=== PATIENT | female | born 1970 | race Caucasian/White ===

== ENCOUNTER 2017-04-29 18:02 | Emergency (ER) | payer OTHER ==
[2017-04-29 18:55] LABS: ADD MAN DIFF? NO
[2017-04-29 18:58] LABS: BASO # 0.1 x10^3/uL (0.0-0.2); BASO % 1 % (0-3); EOS # 0.1 x10^3/uL (0.0-0.7); EOS % 1 % (0-3); HEMATOCRIT 37.1 % (36.0-47.0); HEMOGLOBIN 12.2 g/dL (12.0-15.5); LYMPH # 2.5 x10^3/uL (1.0-4.8); LYMPH % 23 % (24-48); MEAN CORPUSCULAR HEMOGLOBIN 27 pg (25-35); MEAN CORPUSCULAR HGB CONC 33 g/dL (31-37); MEAN CORPUSCULAR VOLUME 82 fL (79-100); MONO # 0.9 x10^3/uL (0.0-1.1); MONO % 8 % (0-9); NEUT # 7.2 x10^3uL (1.8-7.7); NEUT % 67 % (31-73); PLATELET COUNT 334 x10^3/uL (140-400); RED BLOOD COUNT 4.51 x10^6/uL (3.50-5.40); RED CELL DISTRIBUTION WIDTH 14.9 % (11.5-14.5); WHITE BLOOD COUNT 10.8 x10^3/uL (4.0-11.0)
[2017-04-29] MEDS: methylPREDNISolone SOD SUCC PF 125 MG/2 ML VIAL. IV (19:02)
[2017-04-29 19:15] LABS: INFLUENZA A PATIENT NEGATIVE (NEGATIVE); INFLUENZA B PATIENT NEGATIVE (NEGATIVE); OBC FLU VALID
[2017-04-29 19:17] LABS: ANION GAP 9 (6-14); BLOOD UREA NITROGEN 11 mg/dL (7-20); BUN/CREATININE RATIO 16 (6-20); CALCIUM 9.5 mg/dL (8.5-10.1); CARBON DIOXIDE 30 mmol/L (21-32); CHLORIDE 100 mmol/L (98-107); CREATININE 0.7 mg/dL (0.6-1.0); GFR 89.3; GLUCOSE 93 mg/dL (70-99); SODIUM 139 mmol/L (136-145)
[2017-04-29 19:22] LABS: ALBUMIN 3.8 g/dL (3.4-5.0); ALBUMIN/GLOBULIN RATIO 0.9 (1.0-1.7); ALK PHOS 59 U/L (46-116); ALT (SGPT) 12 U/L (14-59); AST (SGOT) 23 U/L (15-37); TOTAL BILIRUBIN 0.2 mg/dL (0.2-1.0); TOTAL PROTEIN 7.9 g/dL (6.4-8.2)
[2017-04-29 19:28] LABS: NT-PRO BNP 149 pg/mL (0-124)
[2017-04-29 19:32] LABS: TROPONINI < 0.017 ng/mL (0.000-0.055)
[2017-04-29] MEDS: IPRATRPIUM/ALBUTEROL 0.5/2.5MG 3 ML NEBU. NEB (20:08)
[2017-04-29] MEDS: ALBUTEROL SULFATE 2.5 MG/3 ML NEBU. INH (20:08)
== END 2017-04-29 20:20 | disposition home or self-care (01) ==
LOC: ER 18:02
DX: J20.9 Acute bronchitis, unspecified (principal); J44.0 Chronic obstructive pulmonary disease with (acute) lower respiratory infection; J44.1 Chronic obstructive pulmonary disease with (acute) exacerbation; I10 Essential (primary) hypertension; E78.00 Pure hypercholesterolemia, unspecified; F12.10 Cannabis abuse, uncomplicated; F17.210 Nicotine dependence, cigarettes, uncomplicated; E66.9 Obesity, unspecified; Z68.34 Body mass index [BMI] 34.0-34.9, adult; Z79.899 Other long term (current) drug therapy
CPT/HCPCS: 36415; 71045; 80053; 83880; 84484; 85025; 87804; 87804-59; 93005; 94640; 96374; 99285-25; J2930; J7613; J7620

== ENCOUNTER 2017-06-03 13:52 | Emergency (ER) | payer OTHER ==
[2017-06-03 15:46] LABS: INFLUENZA A PATIENT NEGATIVE (NEGATIVE); INFLUENZA B PATIENT POSITIVE (NEGATIVE); OBC FLU VALID
== END 2017-06-03 16:06 | disposition home or self-care (01) ==
LOC: ER 16:06
DX: J10.1 Influenza due to other identified influenza virus with other respiratory manifestations (principal); J44.9 Chronic obstructive pulmonary disease, unspecified; M79.7 Fibromyalgia; E78.00 Pure hypercholesterolemia, unspecified; I10 Essential (primary) hypertension; F12.10 Cannabis abuse, uncomplicated; R19.7 Diarrhea, unspecified
CPT/HCPCS: 71046; 87804; 87804-59; 99285-25

== ENCOUNTER 2017-06-10 13:40 | Inpatient (IN) | payer OTHER ==
[2017-06-10] MEDS: 0.9 % SODIUM CHLORIDE 10 ML DISP.SYRIN. IV (14:45)
[2017-06-10 14:57] LABS: ADD MAN DIFF? NO
[2017-06-10] MEDS: ALBUTEROL SULFATE 2.5 MG/3 ML NEBU. CONT NEB (14:57)
[2017-06-10] MEDS: IPRATRPIUM/ALBUTEROL 0.5/2.5MG 3 ML NEBU. NEB ×2 (14:58→20:25)
[2017-06-10] MEDS: IV NORMAL SALINE 1000ML BAG 1,000 ML IV (15:00)
[2017-06-10 15:01] LABS: BASO # 0.1 x10^3/uL (0.0-0.2); BASO % 1 % (0-3); EOS % 0 % (0-3); HEMATOCRIT 37.1 % (36.0-47.0); HEMOGLOBIN 12.9 g/dL (12.0-15.5); LYMPH # 1.5 x10^3/uL (1.0-4.8); LYMPH % 15 % (24-48); MEAN CORPUSCULAR HEMOGLOBIN 28 pg (25-35); MEAN CORPUSCULAR HGB CONC 35 g/dL (31-37); MEAN CORPUSCULAR VOLUME 81 fL (79-100); MONO # 0.6 x10^3/uL (0.0-1.1); MONO % 6 % (0-9); NEUT # 7.9 x10^3uL (1.8-7.7); NEUT % 78 % (31-73); PLATELET COUNT 316 x10^3/uL (140-400); RED BLOOD COUNT 4.56 x10^6/uL (3.50-5.40); WHITE BLOOD COUNT 10.1 x10^3/uL (4.0-11.0)
[2017-06-10] MEDS: CIPROFLOXACIN 400MG PREMIX 200 ML IV (15:01)
[2017-06-10] MEDS: methylPREDNISolone SOD SUCC PF 125 MG/2 ML VIAL. IV (15:01)
[2017-06-10 15:03] LABS: BILIRUBIN,URINE NEGATIVE (NEG); CLARITY,URINE CLEAR; COLOR,URINE YELLOW; GLUCOSE,URINE NEGATIVE (NEG); NITRITE,URINE NEGATIVE (NEG); PROTEIN,URINE NEGATIVE (NEG-TRACE); UROBILINOGEN,URINE 0.2 mg/dL (0.2 mg/dL)
[2017-06-10 15:10] LABS: BACTERIA,URINE 0 /HPF (0-FEW); SQUAMOUS EPITHELIAL CELL,UR OCC /LPF; WBC,URINE OCC /HPF (0-4)
[2017-06-10 15:17] LABS: ANION GAP 12 (6-14); BLOOD UREA NITROGEN 11 mg/dL (7-20); CALCIUM 9.6 mg/dL (8.5-10.1); CARBON DIOXIDE 27 mmol/L (21-32); CHLORIDE 95 mmol/L (98-107); CREATININE 0.7 mg/dL (0.6-1.0); GFR 88.9; GLUCOSE 109 mg/dL (70-99); POTASSIUM 3.3 mmol/L (3.5-5.1); SODIUM 134 mmol/L (136-145)
[2017-06-10 15:22] LABS: ALBUMIN 3.5 g/dL (3.4-5.0); ALK PHOS 94 U/L (46-116); AST (SGOT) 21 U/L (15-37); DIRECT BILIRUBIN < 0.1 mg/dL (0.0-0.2); MAGNESIUM 1.7 mg/dL (1.8-2.4); TOTAL BILIRUBIN 0.4 mg/dL (0.2-1.0); TOTAL PROTEIN 8.7 g/dL (6.4-8.2)
[2017-06-10 15:29] LABS: THYROID STIM HORMONE (TSH) 0.409 uIU/mL (0.358-3.74); TROPONINI < 0.017 ng/mL (0.000-0.055)
[2017-06-10] MEDS ORDERED: FAMOTIDINE 20 MG/2 ML VIAL (15:29)
[2017-06-10 15:30] LABS: NT-PRO BNP 47 pg/mL (0-124)
[2017-06-10 15:30] LABS: CKMB INDEX 2.3 % (0-4); CKMB MASS 2.4 ng/mL (0.0-3.6); CREATINE KINASE 105 U/L (26-192)
[2017-06-10] MEDS: FAMOTIDINE 20 MG/2 ML VIAL IVP (15:31)
[2017-06-10] MEDS: EPINEPHrine 1 MG/ML VIAL IM (15:33)
[2017-06-10] MEDS: diphenhydrAMINE 50 MG/ML VIAL IVP (15:36)
[2017-06-10 15:40] LABS: ALT (SGPT) 14 U/L (14-59)
[2017-06-10 16:35] LABS: INFLUENZA A PATIENT NEGATIVE (NEGATIVE); INFLUENZA B PATIENT NEGATIVE (NEGATIVE); OBC FLU VALID
[2017-06-10] MEDS: POTASSIUM CHLORIDE 20 MEQ TABLET.ER. PO (17:12)
[2017-06-10] MEDS ORDERED: ACETAMINOPHEN 325 MG TABLET. PO (17:30)
[2017-06-10] MEDS ORDERED: ONDANSETRON PF 4 MG/2 ML VIAL. IV (17:30)
[2017-06-10] MEDS: OSELTAMIVIR 75 MG CAPSULE PO (20:23)
[2017-06-10] MEDS ORDERED: CIPROFLOXACIN 400MG PREMIX 200 ML IV (21:00)
[2017-06-11] MEDS: ALPRAZolam 1 MG TABLET PO (02:53)
[2017-06-11] MEDS: ALBUTEROL SULFATE 2.5 MG/3 ML NEBU. NEB ×2 (03:06→18:18)
[2017-06-11 06:36] LABS: BASO % 0 % (0-3); EOS % 0 % (0-3); HEMATOCRIT 36.9 % (36.0-47.0); HEMOGLOBIN 12.5 g/dL (12.0-15.5); LYMPH # 0.8 x10^3/uL (1.0-4.8); LYMPH % 11 % (24-48); MEAN CORPUSCULAR HEMOGLOBIN 28 pg (25-35); MEAN CORPUSCULAR HGB CONC 34 g/dL (31-37); MEAN CORPUSCULAR VOLUME 82 fL (79-100); MONO # 0.2 x10^3/uL (0.0-1.1); MONO % 3 % (0-9); NEUT # 6.9 x10^3uL (1.8-7.7); NEUT % 87 % (31-73); PLATELET COUNT 326 x10^3/uL (140-400); RED BLOOD COUNT 4.51 x10^6/uL (3.50-5.40); RED CELL DISTRIBUTION WIDTH 16.3 % (11.5-14.5)
[2017-06-11 06:38] LABS: ADD MAN DIFF? YES
[2017-06-11 06:48] LABS: ANION GAP 12 (6-14); BLOOD UREA NITROGEN 11 mg/dL (7-20); CALCIUM 9.1 mg/dL (8.5-10.1); CARBON DIOXIDE 27 mmol/L (21-32); CHLORIDE 99 mmol/L (98-107); CREATININE 0.8 mg/dL (0.6-1.0); GFR 76.2; GLUCOSE 163 mg/dL (70-99); POTASSIUM 3.2 mmol/L (3.5-5.1); SODIUM 138 mmol/L (136-145)
[2017-06-11 07:26] LABS: % BANDS 1 % (0-9); % LYMPHS 19 % (24-48); % MONOS 2 % (0-10); % SEGS 78 % (35-66); PLT ESTIMATE ADEQUATE (ADEQUATE)
[2017-06-11] MEDS: IPRATRPIUM/ALBUTEROL 0.5/2.5MG 3 ML NEBU. NEB ×3 (08:11→16:13)
[2017-06-11] MEDS ORDERED: ALPRAZolam 0.5 MG TABLET PO ×2 (08:30→08:45)
[2017-06-11] MEDS: GEMFIBROZIL 600 MG TABLET. PO ×2 (08:42→21:13)
[2017-06-11] MEDS: FLUoxetine HCL 20 MG CAPSULE PO (08:42)
[2017-06-11] MEDS: hydroCHLOROthiazide 25 MG TABLET PO (08:42)
[2017-06-11] MEDS: BENZONATATE 100 MG CAPSULE. PO ×2 (08:43→22:14)
[2017-06-11] MEDS: methylPREDNISolone SOD SUCC PF 125 MG/2 ML VIAL. IV ×3 (08:43→22:13)
[2017-06-11] MEDS: POTASSIUM CHLORIDE 20 MEQ TABLET.ER. PO ×2 (08:44→17:18)
[2017-06-11] MEDS: METOPROLOL TART IMMED RELEASE 25 MG TABLET. PO ×2 (08:44→21:14)
[2017-06-11] MEDS: VERAPAMIL 40 MG TABLET. PO ×2 (08:45→21:15)
[2017-06-11] MEDS: OSELTAMIVIR 75 MG CAPSULE PO ×2 (08:45→21:13)
[2017-06-11] MEDS: LISINOPRIL 20 MG TABLET PO (08:45)
[2017-06-11] MEDS ORDERED: BENZONATATE 100 MG CAPSULE. PO (09:00)
[2017-06-11] MEDS: VARENICLINE 0.5 MG TABLET. PO (10:58)
[2017-06-11] MEDS: HYDROcodone/APAP 7.5/325MG 1 TAB TABLET PO (12:14)
[2017-06-11] MEDS: FLU VACC QS2017-18 (36MOS+)/PF 0.5 ML SYRINGE. VAX IM (12:19)
[2017-06-11] MEDS: ALPRAZolam 0.5 MG TABLET PO ×2 (14:16→22:14)
[2017-06-11] MEDS: BUDESONIDE 0.5 MG/2 ML NEBU. NEB (18:18)
[2017-06-12] MEDS: methylPREDNISolone SOD SUCC PF 125 MG/2 ML VIAL. IV ×3 (06:06→22:18)
[2017-06-12] MEDS: BUDESONIDE 0.5 MG/2 ML NEBU. NEB ×2 (08:09→19:53)
[2017-06-12] MEDS: ALBUTEROL SULFATE 2.5 MG/3 ML NEBU. NEB ×4 (08:09→19:53)
[2017-06-12] MEDS: GEMFIBROZIL 600 MG TABLET. PO ×2 (08:26→20:15)
[2017-06-12] MEDS: OSELTAMIVIR 75 MG CAPSULE PO ×2 (08:26→20:15)
[2017-06-12] MEDS: VERAPAMIL 40 MG TABLET. PO ×2 (08:26→20:16)
[2017-06-12] MEDS: LISINOPRIL 20 MG TABLET PO (08:27)
[2017-06-12] MEDS: FLUoxetine HCL 20 MG CAPSULE PO (08:27)
[2017-06-12] MEDS: hydroCHLOROthiazide 25 MG TABLET PO (08:27)
[2017-06-12] MEDS: POTASSIUM CHLORIDE 20 MEQ TABLET.ER. PO ×2 (08:28→17:03)
[2017-06-12] MEDS: METOPROLOL TART IMMED RELEASE 25 MG TABLET. PO ×2 (08:28→20:16)
[2017-06-12] MEDS: VARENICLINE 0.5 MG TABLET. PO (08:29)
[2017-06-12] MEDS: HYDROcodone/APAP 7.5/325MG 1 TAB TABLET PO ×2 (08:33→15:02)
[2017-06-12 08:51] LABS: ANION GAP 10 (6-14); BLOOD UREA NITROGEN 19 mg/dL (7-20); CALCIUM 9.7 mg/dL (8.5-10.1); CARBON DIOXIDE 28 mmol/L (21-32); CHLORIDE 99 mmol/L (98-107); CREATININE 0.8 mg/dL (0.6-1.0); GFR 76.2; GLUCOSE 147 mg/dL (70-99); POTASSIUM 3.8 mmol/L (3.5-5.1); SODIUM 137 mmol/L (136-145)
[2017-06-12] MEDS: ALPRAZolam 0.5 MG TABLET PO (12:18)
[2017-06-12] MEDS: MONTELUKAST SODIUM 10 MG TABLET. PO (20:15)
[2017-06-13] MEDS: ALPRAZolam 0.5 MG TABLET PO ×2 (01:01→21:07)
[2017-06-13] MEDS: methylPREDNISolone SOD SUCC PF 125 MG/2 ML VIAL. IV (06:17)
[2017-06-13] MEDS: BUDESONIDE 0.5 MG/2 ML NEBU. NEB ×2 (08:02→20:15)
[2017-06-13] MEDS: ALBUTEROL SULFATE 2.5 MG/3 ML NEBU. NEB ×4 (08:02→20:16)
[2017-06-13] MEDS: VERAPAMIL 40 MG TABLET. PO ×2 (08:18→21:02)
[2017-06-13] MEDS: VARENICLINE 0.5 MG TABLET. PO (08:18)
[2017-06-13] MEDS: GEMFIBROZIL 600 MG TABLET. PO ×2 (08:18→21:02)
[2017-06-13] MEDS: OSELTAMIVIR 75 MG CAPSULE PO ×2 (08:18→21:02)
[2017-06-13] MEDS: HYDROcodone/APAP 7.5/325MG 1 TAB TABLET PO ×2 (08:19→21:01)
[2017-06-13] MEDS: FLUoxetine HCL 20 MG CAPSULE PO (08:19)
[2017-06-13] MEDS: POTASSIUM CHLORIDE 20 MEQ TABLET.ER. PO ×2 (08:19→16:37)
[2017-06-13] MEDS: hydroCHLOROthiazide 25 MG TABLET PO (08:19)
[2017-06-13] MEDS: LISINOPRIL 20 MG TABLET PO (08:19)
[2017-06-13] MEDS: METOPROLOL TART IMMED RELEASE 25 MG TABLET. PO ×2 (08:20→21:02)
[2017-06-13] MEDS: methylPREDNISolone SOD SUCC PF 40 MG/ML VIAL. IV ×2 (09:03→21:02)
[2017-06-13] MEDS: MONTELUKAST SODIUM 10 MG TABLET. PO (21:02)
[2017-06-14] MEDS: BUDESONIDE 0.5 MG/2 ML NEBU. NEB ×2 (07:39→20:54)
[2017-06-14] MEDS: ALBUTEROL SULFATE 2.5 MG/3 ML NEBU. NEB ×4 (07:41→20:54)
[2017-06-14] MEDS: GEMFIBROZIL 600 MG TABLET. PO ×2 (07:44→21:25)
[2017-06-14] MEDS: LISINOPRIL 20 MG TABLET PO (07:44)
[2017-06-14] MEDS: VARENICLINE 0.5 MG TABLET. PO (07:44)
[2017-06-14] MEDS: OSELTAMIVIR 75 MG CAPSULE PO ×2 (07:45→21:25)
[2017-06-14] MEDS: POTASSIUM CHLORIDE 20 MEQ TABLET.ER. PO ×2 (07:45→16:31)
[2017-06-14] MEDS: hydroCHLOROthiazide 25 MG TABLET PO (07:45)
[2017-06-14] MEDS: METOPROLOL TART IMMED RELEASE 25 MG TABLET. PO ×2 (07:45→21:25)
[2017-06-14] MEDS: VERAPAMIL 40 MG TABLET. PO ×2 (07:46→21:26)
[2017-06-14] MEDS: methylPREDNISolone SOD SUCC PF 40 MG/ML VIAL. IV ×2 (07:46→21:26)
[2017-06-14] MEDS: FLUoxetine HCL 20 MG CAPSULE PO (07:47)
[2017-06-14] MEDS ORDERED: PROMETH/CODEINE 6.25/10MG 5 ML SYRUP. PO (09:00)
[2017-06-14] MEDS: HYDROcodone/APAP 7.5/325MG 1 TAB TABLET PO (16:30)
[2017-06-14] MEDS ORDERED: BENZOCAINE 10% ORAL GEL 7GM TUBE. TP (16:45)
[2017-06-14] MEDS: MONTELUKAST SODIUM 10 MG TABLET. PO (21:25)
[2017-06-14] MEDS: ALPRAZolam 0.5 MG TABLET PO (21:25)
[2017-06-15] MEDS: HYDROcodone/APAP 7.5/325MG 1 TAB TABLET PO ×2 (02:24→08:40)
[2017-06-15] MEDS: ALBUTEROL SULFATE 2.5 MG/3 ML NEBU. NEB ×3 (06:05→15:01)
[2017-06-15] MEDS: BUDESONIDE 0.5 MG/2 ML NEBU. NEB (06:05)
[2017-06-15] MEDS: POTASSIUM CHLORIDE 20 MEQ TABLET.ER. PO ×2 (08:00→16:58)
[2017-06-15] MEDS: LISINOPRIL 20 MG TABLET PO (08:29)
[2017-06-15] MEDS: FLUoxetine HCL 20 MG CAPSULE PO (08:29)
[2017-06-15] MEDS: VERAPAMIL 40 MG TABLET. PO (08:30)
[2017-06-15] MEDS: methylPREDNISolone SOD SUCC PF 40 MG/ML VIAL. IV (08:30)
[2017-06-15] MEDS: METOPROLOL TART IMMED RELEASE 25 MG TABLET. PO (08:30)
[2017-06-15] MEDS: OSELTAMIVIR 75 MG CAPSULE PO (08:30)
[2017-06-15] MEDS: VARENICLINE 0.5 MG TABLET. PO (08:30)
[2017-06-15] MEDS: GEMFIBROZIL 600 MG TABLET. PO (08:30)
[2017-06-15] MEDS: hydroCHLOROthiazide 25 MG TABLET PO (08:30)
== END 2017-06-15 18:05 | disposition home or self-care (01) | DRG 193 ==
LOC: ER 13:40 → ED HOLD 17:15 → 5 NORTH 20:58
DX: J10.1 Influenza due to other identified influenza virus with other respiratory manifestations (principal); J96.20 Acute and chronic respiratory failure, unspecified whether with hypoxia or hypercapnia; J44.1 Chronic obstructive pulmonary disease with (acute) exacerbation; E78.00 Pure hypercholesterolemia, unspecified; E87.6 Hypokalemia; F17.200 Nicotine dependence, unspecified, uncomplicated; F32.9 Major depressive disorder, single episode, unspecified; F41.9 Anxiety disorder, unspecified; G89.4 Chronic pain syndrome; I10 Essential (primary) hypertension; J30.9 Allergic rhinitis, unspecified; M79.7 Fibromyalgia; F12.90 Cannabis use, unspecified, uncomplicated
CPT/HCPCS: 36415; 71045; 80048; 80076; 81001; 82553; 83735; 83880; 84443; 84484; 85007; 85025; 87804; 87804-59; 90686; 93005; 94618; 94640; 94644; 94760; 96365; 96372; 96375; 99291; 99291-25; J0171; J0744; J1200; J2060; J2920; J2930; J7030; J7613; J7620; J7626; S0028

== ENCOUNTER 2017-12-14 14:12 | Emergency (ER) | payer OTHER ==
[~2017-12-14] VITALS: Ht 172.7 cm; Wt 99.8 kg
[~2017-12-14 14:12] MED LIST: ALBU2.5V5 NEB; ALPR0.5T6 PO; AZIT250T6 PO; BENZ100C PO; FLUO10CA13 PO; FLUO40CA2 PO; FLUT1DIS5 IH; GEMF600T3 PO; HYDR-2679 PO; LISI1TAB7 PO; METO-239 PO; METO25TA4 PO; MONT10TA9 PO; ONDA4TAB10 SL; PRED-220 PO; PRED50TA PO; VARE0.5T PO; VERA240C2 PO
[2017-12-14] MEDS: methylPREDNISolone SOD SUCC PF 125 MG/2 ML VIAL. IV ONE (15:01)
[2017-12-14] MEDS: FAMOTIDINE 20 MG/2 ML VIAL IVP ONE (15:01)
--- NOTE | 2017-12-14 15:03 | RAD ---
EXAM: Chest, single view. HISTORY: Shortness of breath. COMPARISON: 06/10/2017 FINDINGS: A frontal view of the chest is obtained. There is no infiltrate, pleural effusion or pneumothorax. There is mild enlargement of the cardiac silhouette, a component of which is due to portable technique. IMPRESSION: No acute pulmonary finding. Electronically signed by: Carlee White MD (12/14/2017 3:00 PM) [facility]
[2017-12-14 15:04] LABS: BASO # 0.1 x10^3/uL (0.0-0.2); BASO % 1 % (0-3); EOS # 0.2 x10^3/uL (0.0-0.7); EOS % 1 % (0-3); HEMATOCRIT 39.4 % (36.0-47.0); HEMOGLOBIN 13.4 g/dL (12.0-15.5); LYMPH # 2.9 x10^3/uL (1.0-4.8); LYMPH % 23 % (24-48); MEAN CORPUSCULAR HEMOGLOBIN 29 pg (25-35); MEAN CORPUSCULAR HGB CONC 34 g/dL (31-37); MEAN CORPUSCULAR VOLUME 84 fL (79-100); MONO # 0.8 x10^3/uL (0.0-1.1); MONO % 6 % (0-9); NEUT # 8.7 x10^3uL (1.8-7.7); NEUT % 69 % (31-73); PLATELET COUNT 365 x10^3/uL (140-400); RED BLOOD COUNT 4.69 x10^6/uL (3.50-5.40); RED CELL DISTRIBUTION WIDTH 15.1 % (11.5-14.5); WHITE BLOOD COUNT 12.6 x10^3/uL (4.0-11.0)
[2017-12-14] MEDS ORDERED: IPRATRPIUM/ALBUTEROL 0.5/2.5MG 3 ML NEBU. NEB ONE (15:15)
[2017-12-14 15:16] LABS: CREATININE 0.8 mg/dL (0.6-1.0); GFR 76.2; POTASSIUM 3.9 mmol/L (3.5-5.1)
[2017-12-14 15:22] LABS: ALBUMIN 3.7 g/dL (3.4-5.0); ALBUMIN/GLOBULIN RATIO 1.3 (1.0-1.7); TOTAL BILIRUBIN 0.3 mg/dL (0.2-1.0); TOTAL PROTEIN 6.6 g/dL (6.4-8.2)
[2017-12-14 15:40] VITALS: BP 108/71
[2017-12-14] MEDS ORDERED: AMOX1TAB61 PO (15:43)
--- NOTE | 2017-12-14 15:43 | PHYS DOC ---
Past Medical History Past Medical History: COPD, Fibromyalgia, High Cholesterol, Hypertension Past Surgical History: Additional Past Surgical Histo: throat surgery Alcohol Use: None Drug Use: Marijuana Adult General Chief Complaint Chief Complaint: ALLERGIC REACTION HPI HPI Patient is a 47-year-old female who presents with complaint of itching and rash to her hands and feet as well as hoarseness and tightness in her throat that started approximately 15-20 minutes after taking a dose of Levaquin. Patient states that this was her first dose of Levaquin in this prescription. She is not sure whether or not she has taken Levaquin in the past. Patient denies any chest pain or shortness of breath. She does admit to a cough but states that that is been present for quite some time and is why she is taking antibiotics. She denies any fever. Review of Systems Review of Systems Constitutional: Denies fever or chills [] HENT: Complains of sore throat with throat tightness[] Respiratory: Complains of cough[] Cardiovascular: Denies chest pain[] Integument: Complains of rash and itching to bilateral hands and feet, primarily palmar and plantar aspects[] All other systems were reviewed and found to be within normal limits, except as documented in this note. Current Medications Current Medications Current Medications Medications (Trade) Dose Ordered Sig/Roberto Start Time Stop Time Status Last Admin Dose Admin Albuterol/ Ipratropium (Duoneb) 3 ml 1X ONCE 12/14/17 15:15 12/14/17 15:16 DC Famotidine (Pepcid Vial) 20 mg 1X ONCE 12/14/17 15:15 12/14/17 15:16 DC 12/14/17 15:01 20 MG Methylprednisolone Sodium Succinate (SOLU-Medrol 125MG VIAL) 125 mg 1X ONCE 12/14/17 15:15 12/14/17 15:16 DC 12/14/17 15:01 125 MG Allergies Allergies Allergies Coded Allergies Type Severity Reaction Last Updated Verified ciprofloxacin Allergy Severe Shortness of Air 06/10/17 Yes Physical Exam Physical Exam Constitutional: Well developed, well nourished, no acute distress, non-toxic appearance. [] HENT: Normocephalic, atraumatic, bilateral external ears normal, there is pharyngeal erythema without exudates, nose normal. [] Eyes: PERRLA, EOMI, conjunctiva normal, no discharge. [] Neck: Normal range of motion, no tenderness, supple, no stridor. [] Cardiovascular:Heart rate regular rhythm [] Lungs & Thorax: There are inspiratory and expiratory wheezes noted bilaterally[] Abdomen: Bowel sounds normal, soft. [] Skin: Warm, dry, with erythema noted to bilateral hands. [] Extremities: No tenderness, no cyanosis, no clubbing, ROM intact, no edema. [] Neurologic: Alert and oriented X 3, normal motor function, normal sensory function, no focal deficits noted. [] Current Patient Data Vital Signs Vital Signs Date Time Temp Pulse Resp B/P (MAP) Pulse Ox O2 Delivery O2 Flow Rate FiO2 12/14/17 14:53 97 Room Air 12/14/17 14:22 97.7 105 18 127/61 (83) 97.7 Lab Values Laboratory Tests Test 12/14/17 14:57 White Blood Count 12.6 x10^3/uL (4.0-11.0) H Red Blood Count 4.69 x10^6/uL (3.50-5.40) Hemoglobin 13.4 g/dL (12.0-15.5) Hematocrit 39.4 % (36.0-47.0) Mean Corpuscular Volume 84 fL (79-100) Mean Corpuscular Hemoglobin 29 pg (25-35) Mean Corpuscular Hemoglobin Concent 34 g/dL (31-37) Red Cell Distribution Width 15.1 % (11.5-14.5) H Platelet Count 365 x10^3/uL (140-400) Neutrophils (%) (Auto) 69 % (31-73) Lymphocytes (%) (Auto) 23 % (24-48) L Monocytes (%) (Auto) 6 % (0-9) Eosinophils (%) (Auto) 1 % (0-3) Basophils (%) (Auto) 1 % (0-3) Neutrophils # (Auto) 8.7 x10^3uL (1.8-7.7) H Lymphocytes # (Auto) 2.9 x10^3/uL (1.0-4.8) Monocytes # (Auto) 0.8 x10^3/uL (0.0-1.1) Eosinophils # (Auto) 0.2 x10^3/uL (0.0-0.7) Basophils # (Auto) 0.1 x10^3/uL (0.0-0.2) Sodium Level 138 mmol/L (136-145) Potassium Level 3.9 mmol/L (3.5-5.1) Chloride Level 103 mmol/L (98-107) Carbon Dioxide Level 27 mmol/L (21-32) Anion Gap 8 (6-14) Blood Urea Nitrogen 12 mg/dL (7-20) Creatinine 0.8 mg/dL (0.6-1.0) Estimated GFR (Cockcroft-Gault) 76.2 BUN/Creatinine Ratio 15 (6-20) Glucose Level 110 mg/dL (70-99) H Calcium Level 9.0 mg/dL (8.5-10.1) Total Bilirubin 0.3 mg/dL (0.2-1.0) Aspartate Amino Transferase (AST) 11 U/L (15-37) L Alanine Aminotransferase (ALT) 19 U/L (14-59) Alkaline Phosphatase 58 U/L (46-116) Total Protein 6.6 g/dL (6.4-8.2) Albumin 3.7 g/dL (3.4-5.0) Albumin/Globulin Ratio 1.3 (1.0-1.7) Laboratory Tests 12/14/17 14:57 Laboratory Tests 12/14/17 14:57 EKG EKG [] Radiology/Procedures Radiology/Procedures [] Course & Med Decision Making Course & Med Decision Making Pertinent Labs and Imaging studies reviewed. (See chart for details) [] Dragon Disclaimer Dragon Disclaimer This electronic medical record was generated, in whole or in part, using a voice recognition dictation system. Departure Departure Impression: Primary Impression: Allergic reaction caused by a drug Disposition: 01 HOME, SELF-CARE Condition: STABLE Referrals: Jasmin PATTERSON MD (PCP) Patient Instructions: Drug Allergy Scripts Amoxicillin/Potassium Clav (AUGMENTIN 875-125 TABLET) 1 Each Tablet 1 TAB PO BID, #20 TAB Prov: GEOVANI CHRISTIANSON Jr. DO 12/14/17 Problem Qualifiers Primary Impression: Allergic reaction caused by a drug Encounter type: initial encounter Qualified Codes: T78.40XA - Allergy, unspecified, initial encounter GEOVANI CHRISTIANSON Jr. DO Dec 14, 2017 15:43
== END 2017-12-14 16:10 | disposition home or self-care (01) ==
LOC: ER 14:12
DX: L27.0 Generalized skin eruption due to drugs and medicaments taken internally (principal); L29.9 Pruritus, unspecified; T50.905A Adverse effect of unspecified drugs, medicaments and biological substances, initial encounter; J44.9 Chronic obstructive pulmonary disease, unspecified; E78.00 Pure hypercholesterolemia, unspecified; I10 Essential (primary) hypertension; Z88.1 Allergy status to other antibiotic agents; Z98.890 Other specified postprocedural states; Y92.89 Other specified places as the place of occurrence of the external cause
CPT/HCPCS: 36415; 71045; 80053; 85025; 94640; 96374; 96375; 99285; J2930; S0028

== ENCOUNTER 2018-09-19 17:27 | Inpatient (IN) | payer OTHER ==
[~2018-09-19] VITALS: Ht 157.5 cm; Wt 101.2 kg
[~2018-09-19 17:27] MED LIST changes: +AMOX1TAB61 PO; -GEMF600T3 PO; +GEMF600T8 PO
[2018-09-19 17:41] LABS: BASO # 0.1 x10^3/uL (0.0-0.2); BASO % 1 % (0-3); EOS # 0.1 x10^3/uL (0.0-0.7); EOS % 1 % (0-3); HEMATOCRIT 43.4 % (36.0-47.0); HEMOGLOBIN 14.8 g/dL (12.0-15.5); LYMPH # 2.7 x10^3/uL (1.0-4.8); LYMPH % 26 % (24-48); MEAN CORPUSCULAR HEMOGLOBIN 29 pg (25-35); MEAN CORPUSCULAR HGB CONC 34 g/dL (31-37); MEAN CORPUSCULAR VOLUME 84 fL (79-100); MONO # 0.7 x10^3/uL (0.0-1.1); MONO % 7 % (0-9); NEUT # 6.7 x10^3uL (1.8-7.7); NEUT % 65 % (31-73); PLATELET COUNT 482 x10^3/uL (140-400); RED BLOOD COUNT 5.14 x10^6/uL (3.50-5.40); RED CELL DISTRIBUTION WIDTH 14.3 % (11.5-14.5); WHITE BLOOD COUNT 10.2 x10^3/uL (4.0-11.0)
[2018-09-19 17:54] LABS: CALCIUM 9.1 mg/dL (8.5-10.1); CREATININE 0.7 mg/dL (0.6-1.0); GFR 88.6; POTASSIUM 3.6 mmol/L (3.5-5.1)
[2018-09-19 17:56] LABS: ALBUMIN 3.5 g/dL (3.4-5.0); TOTAL BILIRUBIN 0.3 mg/dL (0.2-1.0); TOTAL PROTEIN 7.1 g/dL (6.4-8.2)
--- NOTE | 2018-09-19 17:56 | RAD ---
PORTABLE CHEST 1V Clinical indications: Allergic reaction. COMPARISON: December 14, 2017. Findings: No acute lung infiltrate or pleural effusion or pulmonary edema or lung mass or pneumothorax is seen. The heart size, pulmonary vasculature, mediastinum and both mahesh are unremarkable. Impression: No acute radiographic abnormality is seen. Electronically signed by: Hans Orona MD (09/19/2018 5:53 PM) [facility]
[2018-09-19] MEDS ORDERED: IV NORMAL SALINE 1000ML BAG 1,000 ML IV SCH (18:00)
[2018-09-19] MEDS ORDERED: ONDANSETRON PF 4 MG/2 ML VIAL. IV ONE (18:00)
[2018-09-19] MEDS ORDERED: FAMOTIDINE 20 MG/2 ML VIAL IVP ONE (18:00)
--- NOTE | 2018-09-19 18:04 | PHYS DOC ---
Past Medical History Past Medical History: COPD, Fibromyalgia, High Cholesterol, Hypertension (PIPO HAYES MD) Past Surgical History: Additional Past Surgical Histo: throat surgery (PIPO HAYES MD) Alcohol Use: None Drug Use: Marijuana (PIPO HAYES MD) Smoking: Cigarettes Drug Use: Methamphetamine (JOSH MCCARTHY DO) Adult General Chief Complaint Chief Complaint: allergic reaction HPI HPI Patient is a 48 year old female who came by EMS because of allergic reaction. Patient has history of COPD and currently smoking without home oxygen and started the first dose of prednisone that was prescribed to her recently. Patient complaining of sudden onset of shortness of breath and throat edema with generalized rash and itching. EMS gave her 50 mg of IV Benadryl and 0.3 mg of epinephrine IM with improvement of her condition. IM. (PIPO HAYES MD) Review of Systems Review of Systems Constitutional: Denies fever or chills [] Eyes: Denies change in visual acuity, redness, or eye pain [] HENT: Denies nasal congestion or sore throat [] Respiratory: Reports cough and shortness of breath Cardiovascular: No additional information not addressed in HPI [] GI: Denies abdominal pain, nausea, vomiting, bloody stools or diarrhea [] : Denies dysuria or hematuria [] Musculoskeletal: Denies back pain or joint pain [] Integument: Reports rash and itching Neurologic: Denies headache, focal weakness or sensory changes [] Endocrine: Denies polyuria or polydipsia [] All other systems were reviewed and found to be within normal limits, except as documented in this note. (PIPO HAYES MD) Current Medications Current Medications Current Medications Medications (Trade) Dose Ordered Sig/Roberto Start Time Stop Time Status Last Admin Dose Admin Famotidine (Pepcid Vial) 20 mg 1X ONCE 09/19/18 18:00 09/19/18 18:01 DC 09/19/18 17:55 20 MG Ondansetron HCl (Zofran) 4 mg 1X ONCE 09/19/18 18:00 09/19/18 18:01 DC 09/19/18 17:55 4 MG Sodium Chloride 1,000 ml @ 1,000 mls/hr Q1H 09/19/18 18:00 09/19/18 18:59 DC 09/19/18 17:55 1,000 MLS/HR (JOSH MCCARTHY DO) Allergies Allergies Allergies Coded Allergies Type Severity Reaction Last Updated Verified ciprofloxacin Allergy Severe Shortness of Air 06/10/17 Yes (JOSH MCCARTHY DO) Physical Exam Physical Exam Constitutional: Well nourished, mild distress, non-toxic appearance. [] HENT: Normocephalic, atraumatic, bilateral external ears normal, oropharynx moist, no oral exudates, no uvula edema.[] Eyes: PERRLA, EOMI, conjunctiva normal, no discharge. [] Neck: Normal range of motion, no tenderness, supple, no stridor. [] Cardiovascular:Heart rate regular rhythm, no murmur [] Lungs & Thorax: Bilateral breath sounds clear to auscultation [] Abdomen: Bowel sounds normal, soft, no tenderness, no masses, no pulsatile masses. [] Skin: Warm, dry, no erythema, mild erythematous rash of bilateral hands Back: No tenderness, no CVA tenderness. [] Extremities: No tenderness, no cyanosis, no clubbing, ROM intact, no edema. [] Neurologic: Alert and oriented X 3, normal motor function, normal sensory funct ion, no focal deficits noted. [] Psychologic: Affect anxiousl, judgement normal, mood normal. [] (PIPO HAYES MD) Physical Exam Constitutional: Well nourished, non-toxic appearance. [] HENT: Normocephalic, atraumatic, oropharynx moist, tongue normal Eyes: Conjunctiva normal, no discharge. [] Neck: Normal range of motion, no tenderness Cardiovascular Heart rate tachycardic, normal rhythm Lungs & Thorax: Bilateral breath bilaterally diminished with diffuse wheezing Skin: Warm, dry, no erythema, rash appears resolved Extremities: No tenderness, ROM intact, no edema. [] Neurologic: Alert and oriented X 3, no focal deficits noted. [] Psychologic: Affect anxious, judgement normal (JOSH MCCARTHY DO) Current Patient Data Vital Signs Vital Signs Date Time Temp Pulse Resp B/P (MAP) Pulse Ox O2 Delivery O2 Flow Rate FiO2 09/19/18 18:07 119 20 139/67 (91) 93 Room Air 09/19/18 18:01 98.1 98.1 (JOSH MCCARTHY DO) Lab Values Laboratory Tests Test 09/19/18 17:36 White Blood Count 10.2 x10^3/uL (4.0-11.0) Red Blood Count 5.14 x10^6/uL (3.50-5.40) Hemoglobin 14.8 g/dL (12.0-15.5) Hematocrit 43.4 % (36.0-47.0) Mean Corpuscular Volume 84 fL (79-100) Mean Corpuscular Hemoglobin 29 pg (25-35) Mean Corpuscular Hemoglobin Concent 34 g/dL (31-37) Red Cell Distribution Width 14.3 % (11.5-14.5) Platelet Count 482 x10^3/uL (140-400) H Neutrophils (%) (Auto) 65 % (31-73) Lymphocytes (%) (Auto) 26 % (24-48) Monocytes (%) (Auto) 7 % (0-9) Eosinophils (%) (Auto) 1 % (0-3) Basophils (%) (Auto) 1 % (0-3) Neutrophils # (Auto) 6.7 x10^3uL (1.8-7.7) Lymphocytes # (Auto) 2.7 x10^3/uL (1.0-4.8) Monocytes # (Auto) 0.7 x10^3/uL (0.0-1.1) Eosinophils # (Auto) 0.1 x10^3/uL (0.0-0.7) Basophils # (Auto) 0.1 x10^3/uL (0.0-0.2) Sodium Level 138 mmol/L (136-145) Potassium Level 3.6 mmol/L (3.5-5.1) Chloride Level 102 mmol/L (98-107) Carbon Dioxide Level 24 mmol/L (21-32) Anion Gap 12 (6-14) Blood Urea Nitrogen 12 mg/dL (7-20) Creatinine 0.7 mg/dL (0.6-1.0) Estimated GFR (Cockcroft-Gault) 88.6 BUN/Creatinine Ratio 17 (6-20) Glucose Level 189 mg/dL (70-99) H Calcium Level 9.1 mg/dL (8.5-10.1) Total Bilirubin 0.3 mg/dL (0.2-1.0) Aspartate Amino Transferase (AST) 22 U/L (15-37) Alanine Aminotransferase (ALT) 20 U/L (14-59) Alkaline Phosphatase 63 U/L (46-116) Total Protein 7.1 g/dL (6.4-8.2) Albumin 3.5 g/dL (3.4-5.0) Albumin/Globulin Ratio 1.0 (1.0-1.7) Laboratory Tests 09/19/18 17:36 Laboratory Tests 09/19/18 17:36 (JOSH MCCARTHY DO) Lab Values Laboratory Tests Test 09/19/18 17:36 White Blood Count 10.2 x10^3/uL (4.0-11.0) Red Blood Count 5.14 x10^6/uL (3.50-5.40) Hemoglobin 14.8 g/dL (12.0-15.5) Hematocrit 43.4 % (36.0-47.0) Mean Corpuscular Volume 84 fL (79-100) Mean Corpuscular Hemoglobin 29 pg (25-35) Mean Corpuscular Hemoglobin Concent 34 g/dL (31-37) Red Cell Distribution Width 14.3 % (11.5-14.5) Platelet Count 482 x10^3/uL (140-400) H Neutrophils (%) (Auto) 65 % (31-73) Lymphocytes (%) (Auto) 26 % (24-48) Monocytes (%) (Auto) 7 % (0-9) Eosinophils (%) (Auto) 1 % (0-3) Basophils (%) (Auto) 1 % (0-3) Neutrophils # (Auto) 6.7 x10^3uL (1.8-7.7) Lymphocytes # (Auto) 2.7 x10^3/uL (1.0-4.8) Monocytes # (Auto) 0.7 x10^3/uL (0.0-1.1) Eosinophils # (Auto) 0.1 x10^3/uL (0.0-0.7) Basophils # (Auto) 0.1 x10^3/uL (0.0-0.2) Sodium Level 138 mmol/L (136-145) Potassium Level 3.6 mmol/L (3.5-5.1) Chloride Level 102 mmol/L (98-107) Carbon Dioxide Level 24 mmol/L (21-32) Anion Gap 12 (6-14) Blood Urea Nitrogen 12 mg/dL (7-20) Creatinine 0.7 mg/dL (0.6-1.0) Estimated GFR (Cockcroft-Gault) 88.6 BUN/Creatinine Ratio 17 (6-20) Glucose Level 189 mg/dL (70-99) H Calcium Level 9.1 mg/dL (8.5-10.1) Total Bilirubin 0.3 mg/dL (0.2-1.0) Aspartate Amino Transferase (AST) 22 U/L (15-37) Alanine Aminotransferase (ALT) 20 U/L (14-59) Alkaline Phosphatase 63 U/L (46-116) Total Protein 7.1 g/dL (6.4-8.2) Albumin 3.5 g/dL (3.4-5.0) Albumin/Globulin Ratio 1.0 (1.0-1.7) Laboratory Tests 09/19/18 17:36 Laboratory Tests 09/19/18 17:36 (PIPO HAYES MD) EKG EKG EKG interpreted by me. EKG at 1725 showed sinus tachycardia at rate 123,, no acute ST and T-wave abnormalities. (PIPO HAYES MD) Radiology/Procedures Radiology/Procedures [] (PIPO HAYES MD) Radiology/Procedures PROCEDURE: PORTABLE CHEST 1V PORTABLE CHEST 1V Clinical indications: Allergic reaction. COMPARISON: December 14, 2017. Findings: No acute lung infiltrate or pleural effusion or pulmonary edema or lung mass or pneumothorax is seen. The heart size, pulmonary vasculature, mediastinum and both mahesh are unremarkable. Impression: No acute radiographic abnormality is seen. Electronically signed by: Hans Orona MD (09/19/2018 5:53 PM) [facility] (JOSH MCCARTHY DO) Course & Med Decision Making Course & Med Decision Making Pertinent Labs and Imaging studies are pending. Sign out given to at 1800 for further evaluation and final disposition. Discussed current findings and plan with patient and family, who acknowledge understanding and agreement. (PIPO HAYES MD) Course & Med Decision Making 1800- Sign out received from Dr. Hayes for patient with report of possible allergic reaction. In talking with patient she had just taken Levaquin and some prednisone. Patient reports both were leftovers from prior prescriptions. Reports sensation that she was having problems breathing. Hx of cipro allergy. Reports she thinks she had a similar experience with Levaquin in the past. [facility] review noted patient with similar episode on 12/14/17 involving Levaquin which required her to present to [place] for evaluation and treatment. Allergic reaction likely secondary to Fluoroquinolones rather than steroids. Patient also reports she has been using Methamphetamines this week. Patient had been given IM epi and 50mg of benadryl IV by EMS prior to arrival. Pepcid and IVF provided in ED. Labs reviewed. CXR reviewed. Patient seen and evaluated by myself. Patient with continued wheezing and diminished breath sounds at bases. Rash improved. No airway compromise. Patient still requiring supplemental O2. Patient trailed off O2 and dropping to 88% on RA. Patient requiring admission for further evaluation and treatment. Discussed case with Dr. Banks business continuity planning director for Dr. Catherine (PCP) who is in agreement with admission. Discussed findings and plan with patient, who acknowledges understanding and agreement. (JOSH MCCARTHY DO) Dragon Disclaimer Dragon Disclaimer This electronic medical record was generated, in whole or in part, using a voice recognition dictation system. (PIPO HAYES MD) Departure Departure Impression: Primary Impression: Allergic reaction Additional Impressions: COPD exacerbation Hypoxia Disposition: ADMITTED INPATIENT Admitting Physician: Shine Catherine (d/w Dr. Banks (business continuity planning director)) (JOSH MCCARTHY DO) Condition: GUARDED Referrals: Jasmin CATHERINE MD (PCP) Critical Care Time Critical care time was 30 minutes exclusive of procedures. (PIPO HAYES MD) Problem Qualifiers Primary Impression: Allergic reaction Encounter type: initial encounter Qualified Codes: T78.40XA - Allergy, unspecified, initial encounter PIPO HAYES MD September 19, 2018 18:04 JOSH MCCARTHY DO September 19, 2018 18:32
[2018-09-19] MEDS ORDERED: ONDANSETRON PF 4 MG/2 ML VIAL. IV PRN (18:30)
[2018-09-19] MEDS ORDERED: DEXAMETHASONE SOD PHOS 20 MG/5 ML VIAL. IV ONE (18:30)
[2018-09-19] MEDS ORDERED: DULO20CA PO (19:50)
[2018-09-19] MEDS ORDERED: FLUT12AE IH (19:50)
[2018-09-19 19:55] VITALS: BP 130/89
[2018-09-19] MEDS: IPRATRPIUM/ALBUTEROL 0.5/2.5MG 3 ML NEBU. NEB SCH (20:02)
[2018-09-19] MEDS: ACETAMINOPHEN 325 MG TABLET. PO PRN (20:04)
[2018-09-19] MEDS ORDERED: ALBUTEROL SULFATE 2.5 MG/3 ML NEBU. NEB PRN (22:30)
[2018-09-19] MEDS ORDERED: ENOXAPARIN 40 MG/0.4 ML SYRINGE. SQ SCH (23:00)
[2018-09-19] MEDS: HYDROcodone/APAP 7.5/325MG 1 TAB TABLET PO PRN (23:06)
[2018-09-19] MEDS: ALPRAZolam 0.5 MG TABLET PO PRN (23:07)
[2018-09-19 23:14] VITALS: BP 112/74
[2018-09-20 03:16] VITALS: BP 127/84
[2018-09-20 04:13] LABS: BASO % 0 % (0-3); EOS % 0 % (0-3); HEMATOCRIT 41.7 % (36.0-47.0); HEMOGLOBIN 13.9 g/dL (12.0-15.5); LYMPH # 0.9 x10^3/uL (1.0-4.8); LYMPH % 6 % (24-48); MEAN CORPUSCULAR HEMOGLOBIN 28 pg (25-35); MEAN CORPUSCULAR HGB CONC 33 g/dL (31-37); MEAN CORPUSCULAR VOLUME 85 fL (79-100); MONO # 0.1 x10^3/uL (0.0-1.1); MONO % 1 % (0-9); NEUT # 12.9 x10^3uL (1.8-7.7); NEUT % 93 % (31-73); PLATELET COUNT 369 x10^3/uL (140-400); RED BLOOD COUNT 4.89 x10^6/uL (3.50-5.40); RED CELL DISTRIBUTION WIDTH 14.7 % (11.5-14.5); WHITE BLOOD COUNT 13.9 x10^3/uL (4.0-11.0)
[2018-09-20 04:52] LABS: CALCIUM 9.1 mg/dL (8.5-10.1); CREATININE 0.8 mg/dL (0.6-1.0); GFR 75.9; POTASSIUM 3.6 mmol/L (3.5-5.1)
[2018-09-20] MEDS: HYDROcodone/APAP 7.5/325MG 1 TAB TABLET PO PRN ×2 (05:29→15:07)
[2018-09-20] MEDS: ALPRAZolam 0.5 MG TABLET PO PRN ×2 (05:32→15:07)
[2018-09-20] MEDS: BUDESONIDE 0.5 MG/2 ML NEBU. NEB SCH ×2 (05:55→21:09)
[2018-09-20] MEDS: IPRATRPIUM/ALBUTEROL 0.5/2.5MG 3 ML NEBU. NEB SCH ×4 (05:55→21:09)
--- NOTE | 2018-09-20 06:24 | EKG ---
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
[2018-09-20 07:25] VITALS: BP 141/89
[2018-09-20 07:25] LABS: % BANDS 4 % (0-9); % LYMPHS 4 % (24-48); % MONOS 1 % (0-10); % SEGS 91 % (35-66); ANISOCYTOSIS SLIGHT; PLT ESTIMATE ADEQUATE (ADEQUATE)
[2018-09-20] MEDS: GEMFIBROZIL 600 MG TABLET. PO SCH ×2 (08:44→21:57)
[2018-09-20] MEDS: hydroCHLOROthiazide 25 MG TABLET PO SCH (08:44)
[2018-09-20] MEDS: ACETAMINOPHEN 325 MG TABLET. PO PRN (08:44)
[2018-09-20] MEDS: METOPROLOL TART IMMED RELEASE 25 MG TABLET. PO SCH ×2 (08:44→21:00)
[2018-09-20] MEDS: FLUoxetine HCL 20 MG CAPSULE PO SCH (08:45)
[2018-09-20] MEDS: LISINOPRIL 20 MG TABLET PO SCH (08:45)
[2018-09-20] MEDS ORDERED: DEXTROSE 50% 25 GM / 50ML DISP.SYRIN. IV PRN (09:00)
--- NOTE | 2018-09-20 09:06 | PDOC1 ---
History and Physical Date of Admission Date of Admission 09/19/18 Identification/Chief Complaint Chief Complaint allergic reaction Source Source: Patient History of Present Illness History of Present Illness She took her mothers left over Levaquin for bronchitis symptoms, she is allergic to quinolones and her mouth and throat started to swell and she was seen and arlene ated in ER with IV steroids, epinephrine and benadryl and feels a lot better but is still wheezing from her COPD exacerbation from bronchitis Past Medical History Cardiovascular: CHF, HTN, Hyperlipidemia Pulmonary: COPD GI: GERD Hepatobiliary: No pertinent hx Psych: Anxiety, Addictions, Bipolar Rheumatologic: Other (chronic back apin) Renal/: UTI, Other (kidney stone) Family History Family History: Chronic Bronchitis, Coronary Artery Disease, Diabetes, Hypertension, Hypothyroidism, Obesity Social History Smoke: 1 pack per day Drugs: Crystal meth Current Problem List Problem List Problems Medical Problems: (1) Allergic reaction Status: Acute (2) COPD exacerbation Status: Acute (3) Hypoxia Status: Acute Current Medications Current Medications Current Medications Medications (Trade) Dose Ordered Sig/Roberto Start Time Stop Time Status Last Admin Dose Admin Acetaminophen (Tylenol) 650 mg PRN Q4HRS PRN 09/19/18 18:30 09/20/18 18:29 09/20/18 08:44 650 MG Acetaminophen/ Hydrocodone Bitart (Lortab 7.5/325) 1 tab PRN Q6HRS PRN 09/19/18 22:30 09/20/18 05:29 1 TAB Albuterol Sulfate (Ventolin Neb Soln) 2.5 mg PRN QID PRN 09/19/18 22:30 Albuterol/ Ipratropium (Duoneb) 3 ml RTQID 09/19/18 19:00 09/20/18 05:55 3 ML Alprazolam (Xanax) 0.5 mg PRN Q6HRS PRN 09/19/18 22:30 09/20/18 05:32 0.5 MG Budesonide (Pulmicort) 0.5 mg RTBID 09/20/18 08:00 09/20/18 05:55 0.5 MG Dexamethasone Sodium Phosphate (Decadron) 10 mg 1X ONCE 09/19/18 18:30 09/19/18 18:31 DC 09/19/18 18:37 10 MG Enoxaparin Sodium (Lovenox 40mg Syringe) 40 mg QHS 09/19/18 23:00 09/19/18 23:06 40 MG Famotidine (Pepcid Vial) 20 mg 1X ONCE 09/19/18 18:00 09/19/18 18:01 DC 09/19/18 17:55 20 MG Fluoxetine HCl (PROzac) 40 mg DAILYWBKFT 09/20/18 08:00 09/20/18 08:45 40 MG Gemfibrozil (Lopid) 600 mg BID 09/20/18 09:00 09/20/18 08:44 600 MG Hydrochlorothiazide (Hydrodiuril) 25 mg DAILY 09/20/18 09:00 09/20/18 08:44 25 MG Lisinopril (Prinivil) 20 mg DAILY 09/20/18 09:00 09/20/18 08:45 20 MG Metoprolol Tartrate (Lopressor) 25 mg BID 09/20/18 09:00 09/20/18 08:44 25 MG Ondansetron HCl (Zofran) 4 mg PRN Q8HRS PRN 09/19/18 18:30 09/20/18 18:29 Sodium Chloride 1,000 ml @ 1,000 mls/hr Q1H 09/19/18 18:00 09/19/18 18:59 DC 09/19/18 17:55 1,000 MLS/HR Allergies Allergies Allergies Coded Allergies Type Severity Reaction Last Updated Verified ciprofloxacin Allergy Severe Shortness of Air 06/10/17 Yes ROS Review of System CONSTITUTIONAL: No fever or chills EYES: No recent changes SKIN: No rash or itching CARDIOVASCULAR: No chest pain, syncope, palpitations, or edema RESPIRATORY: + SOB, productive cough GASTROINTESTINAL: No nausea, vomiting or abdominal pain, hx of hernia NEUROLOGICAL: No headaches or weakness ENDOCRINE: No cold or heat intolerance GENITOURINARY: No urgency or frequency of urination MUSCULOSKELETAL: + chronic back pain LYMPHATICS: No enlarged lymph nodes PSYCHIATRIC: + hx of anxiety, depression, bipolar, OCD Physical Exam Physical Exam GEN.: Alert and oriented. HEENT: Head is normocephalic, atraumatic, tongue normal, throat normal NECK: Supple. LUNGS: bilateral expiratory wheezes HEART: RRR, S1, S2 present. Peripheral pulses intact ABDOMEN: Soft, nontender. Positive bowel sounds. EXTREMITIES: Without any cyanosis. NEUROLOGIC: Normal speech, normal tone PSYCHIATRIC: Normal affect, normal mood. SKIN: No ulcerations Vitals Vitals Vital Signs Date Time Temp Pulse Resp B/P (MAP) Pulse Ox O2 Delivery O2 Flow Rate FiO2 09/20/18 08:48 Nasal Cannula 3.0 09/20/18 08:45 90 141/89 09/20/18 07:25 97.7 20 94 97.7 Labs Labs Laboratory Tests Test 09/19/18 17:36 09/20/18 03:35 White Blood Count 10.2 x10^3/uL (4.0-11.0) 13.9 x10^3/uL (4.0-11.0) Red Blood Count 5.14 x10^6/uL (3.50-5.40) 4.89 x10^6/uL (3.50-5.40) Hemoglobin 14.8 g/dL (12.0-15.5) 13.9 g/dL (12.0-15.5) Hematocrit 43.4 % (36.0-47.0) 41.7 % (36.0-47.0) Mean Corpuscular Volume 84 fL (79-100) 85 fL (79-100) Mean Corpuscular Hemoglobin 29 pg (25-35) 28 pg (25-35) Mean Corpuscular Hemoglobin Concent 34 g/dL (31-37) 33 g/dL (31-37) Red Cell Distribution Width 14.3 % (11.5-14.5) 14.7 % (11.5-14.5) Platelet Count 482 x10^3/uL (140-400) 369 x10^3/uL (140-400) Neutrophils (%) (Auto) 65 % (31-73) 93 % (31-73) Lymphocytes (%) (Auto) 26 % (24-48) 6 % (24-48) Monocytes (%) (Auto) 7 % (0-9) 1 % (0-9) Eosinophils (%) (Auto) 1 % (0-3) 0 % (0-3) Basophils (%) (Auto) 1 % (0-3) 0 % (0-3) Neutrophils # (Auto) 6.7 x10^3uL (1.8-7.7) 12.9 x10^3uL (1.8-7.7) Lymphocytes # (Auto) 2.7 x10^3/uL (1.0-4.8) 0.9 x10^3/uL (1.0-4.8) Monocytes # (Auto) 0.7 x10^3/uL (0.0-1.1) 0.1 x10^3/uL (0.0-1.1) Eosinophils # (Auto) 0.1 x10^3/uL (0.0-0.7) 0.0 x10^3/uL (0.0-0.7) Basophils # (Auto) 0.1 x10^3/uL (0.0-0.2) 0.0 x10^3/uL (0.0-0.2) Sodium Level 138 mmol/L (136-145) 139 mmol/L (136-145) Potassium Level 3.6 mmol/L (3.5-5.1) 3.6 mmol/L (3.5-5.1) Chloride Level 102 mmol/L (98-107) 101 mmol/L (98-107) Carbon Dioxide Level 24 mmol/L (21-32) 26 mmol/L (21-32) Anion Gap 12 (6-14) 12 (6-14) Blood Urea Nitrogen 12 mg/dL (7-20) 13 mg/dL (7-20) Creatinine 0.7 mg/dL (0.6-1.0) 0.8 mg/dL (0.6-1.0) Estimated GFR (Cockcroft-Gault) 88.6 75.9 BUN/Creatinine Ratio 17 (6-20) Glucose Level 189 mg/dL (70-99) 177 mg/dL (70-99) Calcium Level 9.1 mg/dL (8.5-10.1) 9.1 mg/dL (8.5-10.1) Total Bilirubin 0.3 mg/dL (0.2-1.0) Aspartate Amino Transf (AST/SGOT) 22 U/L (15-37) Alanine Aminotransferase (ALT/SGPT) 20 U/L (14-59) Alkaline Phosphatase 63 U/L (46-116) Total Protein 7.1 g/dL (6.4-8.2) Albumin 3.5 g/dL (3.4-5.0) Albumin/Globulin Ratio 1.0 (1.0-1.7) Segmented Neutrophils % 91 % (35-66) Band Neutrophils % 4 % (0-9) Lymphocytes % 4 % (24-48) Monocytes % 1 % (0-10) Platelet Estimate Adequate (ADEQUATE) Anisocytosis Slight Laboratory Tests Test 09/19/18 17:36 09/20/18 03:35 White Blood Count 10.2 x10^3/uL (4.0-11.0) 13.9 x10^3/uL (4.0-11.0) Red Blood Count 5.14 x10^6/uL (3.50-5.40) 4.89 x10^6/uL (3.50-5.40) Hemoglobin 14.8 g/dL (12.0-15.5) 13.9 g/dL (12.0-15.5) Hematocrit 43.4 % (36.0-47.0) 41.7 % (36.0-47.0) Mean Corpuscular Volume 84 fL (79-100) 85 fL (79-100) Mean Corpuscular Hemoglobin 29 pg (25-35) 28 pg (25-35) Mean Corpuscular Hemoglobin Concent 34 g/dL (31-37) 33 g/dL (31-37) Red Cell Distribution Width 14.3 % (11.5-14.5) 14.7 % (11.5-14.5) Platelet Count 482 x10^3/uL (140-400) 369 x10^3/uL (140-400) Neutrophils (%) (Auto) 65 % (31-73) 93 % (31-73) Lymphocytes (%) (Auto) 26 % (24-48) 6 % (24-48) Monocytes (%) (Auto) 7 % (0-9) 1 % (0-9) Eosinophils (%) (Auto) 1 % (0-3) 0 % (0-3) Basophils (%) (Auto) 1 % (0-3) 0 % (0-3) Neutrophils # (Auto) 6.7 x10^3uL (1.8-7.7) 12.9 x10^3uL (1.8-7.7) Lymphocytes # (Auto) 2.7 x10^3/uL (1.0-4.8) 0.9 x10^3/uL (1.0-4.8) Monocytes # (Auto) 0.7 x10^3/uL (0.0-1.1) 0.1 x10^3/uL (0.0-1.1) Eosinophils # (Auto) 0.1 x10^3/uL (0.0-0.7) 0.0 x10^3/uL (0.0-0.7) Basophils # (Auto) 0.1 x10^3/uL (0.0-0.2) 0.0 x10^3/uL (0.0-0.2) Sodium Level 138 mmol/L (136-145) 139 mmol/L (136-145) Potassium Level 3.6 mmol/L (3.5-5.1) 3.6 mmol/L (3.5-5.1) Chloride Level 102 mmol/L (98-107) 101 mmol/L (98-107) Carbon Dioxide Level 24 mmol/L (21-32) 26 mmol/L (21-32) Anion Gap 12 (6-14) 12 (6-14) Blood Urea Nitrogen 12 mg/dL (7-20) 13 mg/dL (7-20) Creatinine 0.7 mg/dL (0.6-1.0) 0.8 mg/dL (0.6-1.0) Estimated GFR (Cockcroft-Gault) 88.6 75.9 BUN/Creatinine Ratio 17 (6-20) Glucose Level 189 mg/dL (70-99) 177 mg/dL (70-99) Calcium Level 9.1 mg/dL (8.5-10.1) 9.1 mg/dL (8.5-10.1) Total Bilirubin 0.3 mg/dL (0.2-1.0) Aspartate Amino Transf (AST/SGOT) 22 U/L (15-37) Alanine Aminotransferase (ALT/SGPT) 20 U/L (14-59) Alkaline Phosphatase 63 U/L (46-116) Total Protein 7.1 g/dL (6.4-8.2) Albumin 3.5 g/dL (3.4-5.0) Albumin/Globulin Ratio 1.0 (1.0-1.7) Segmented Neutrophils % 91 % (35-66) Band Neutrophils % 4 % (0-9) Lymphocytes % 4 % (24-48) Monocytes % 1 % (0-10) Platelet Estimate Adequate (ADEQUATE) Anisocytosis Slight Images Images PORTABLE CHEST 1V Clinical indications: Allergic reaction. COMPARISON: December 14, 2017. Findings: No acute lung infiltrate or pleural effusion or pulmonary edema or lung mass or pneumothorax is seen. The heart size, pulmonary vasculature, mediastinum and both mahesh are unremarkable. Impression: No acute radiographic abnormality is seen. VTE Prophylaxis Ordered VTE Prophylaxis Devices: No VTE Pharmacological Prophylaxi: Yes Assessment/Plan Assessment/Plan medication allergy with anaphylaxis - continue steroids acute bronchitis with COPD exacerbation - neb tx, IV steroids, po doxycycline hyperglycemia - SSI, check for diabetes HTN, CHF hx - continue home meds GERD - continue home meds chronic back pain - bedrest - tylenol bipolar Jasmin PATTERSON MD September 20, 2018 09:06
[2018-09-20] MEDS ORDERED: ENOXAPARIN 40 MG/0.4 ML SYRINGE. SQ SCH (09:15)
[2018-09-20] MEDS: methylPREDNISolone SOD SUCC PF 40 MG/ML VIAL. IV SCH ×3 (09:39→21:56)
[2018-09-20] MEDS: BENZONATATE 100 MG CAPSULE. PO SCH ×3 (09:39→21:58)
[2018-09-20] MEDS: DULoxetine HCL 20 MG CAPSULE.DR PO SCH (09:40)
[2018-09-20] MEDS: DOXYCYCLINE HYCLATE 100 MG TABLET PO SCH ×2 (09:41→21:58)
[2018-09-20 10:43] VITALS: BP 137/79
[2018-09-20] MEDS: INSULIN LISPRO 300 UNITS/3 ML INSULN.PEN. SQ SCH ×2 (12:00→17:25)
[2018-09-20] MEDS: ENOXAPARIN 40 MG/0.4 ML SYRINGE. SQ SCH ×2 (13:38→21:59)
[2018-09-20 15:10] VITALS: BP 125/84
--- NOTE | 2018-09-20 15:49 | NUR ---
SW following pt for anticipated dc needs. Chart reviewed. Pt lives at home with spouse. No discharge recommendation noted at this time. Will continue to evaluate dc needs.
--- NOTE | 2018-09-20 16:55 | NUR ---
1600, message left for Dr. Catherine's information services assistant, just to notify them that pt has been tachy, 110's for about an hour. I gave Xanax to see if that would help, but 1 hour later, remains tachy. Pt did state she took meth for a full week straight, Wednesday being the first day she had not had any.
[2018-09-20 17:14] LABS: HEMOGLOBIN A1C 7.2 % (4.8-5.6)
[2018-09-20 20:49] VITALS: BP 95/62
[2018-09-20] MEDS: LACTOBACILLUS RHAMNOSUS GG 1 CAPSULE. PO SCH (21:58)
[2018-09-20] MEDS: MONTELUKAST SODIUM 10 MG TABLET. PO SCH (21:58)
[2018-09-20 23:34] VITALS: BP 115/69
[2018-09-21 03:13] VITALS: BP 134/82
[2018-09-21] MEDS: methylPREDNISolone SOD SUCC PF 40 MG/ML VIAL. IV SCH ×3 (06:16→20:22)
[2018-09-21 07:25] VITALS: BP 150/94
[2018-09-21] MEDS: IPRATRPIUM/ALBUTEROL 0.5/2.5MG 3 ML NEBU. NEB SCH ×4 (08:24→20:28)
[2018-09-21] MEDS: BUDESONIDE 0.5 MG/2 ML NEBU. NEB SCH ×2 (08:24→20:28)
[2018-09-21] MEDS: LACTOBACILLUS RHAMNOSUS GG 1 CAPSULE. PO SCH ×2 (09:04→20:16)
[2018-09-21] MEDS: FLUoxetine HCL 20 MG CAPSULE PO SCH (09:04)
[2018-09-21] MEDS: DULoxetine HCL 20 MG CAPSULE.DR PO SCH (09:04)
[2018-09-21] MEDS: GEMFIBROZIL 600 MG TABLET. PO SCH ×2 (09:04→20:16)
[2018-09-21] MEDS: hydroCHLOROthiazide 25 MG TABLET PO SCH (09:04)
[2018-09-21] MEDS: DOXYCYCLINE HYCLATE 100 MG TABLET PO SCH ×2 (09:05→20:22)
[2018-09-21] MEDS: LISINOPRIL 20 MG TABLET PO SCH (09:05)
[2018-09-21] MEDS: METOPROLOL TART IMMED RELEASE 25 MG TABLET. PO SCH (09:05)
[2018-09-21] MEDS: BENZONATATE 100 MG CAPSULE. PO SCH ×3 (09:06→20:16)
[2018-09-21] MEDS: ENOXAPARIN 40 MG/0.4 ML SYRINGE. SQ SCH ×2 (09:07→20:18)
[2018-09-21] MEDS: INSULIN LISPRO 300 UNITS/3 ML INSULN.PEN. SQ SCH ×3 (09:14→17:43)
[2018-09-21 10:40] VITALS: BP 150/93
[2018-09-21] MEDS: metFORMIN 500 MG TABLET PO SCH ×2 (10:40→17:37)
--- NOTE | 2018-09-21 11:30 | NUR ---
Pt triggered sepsis screen due to high HR and WBC. See sepsis documentation. Dr. Catherine notified at 1125. Pt is taking Methylprednisone. No new orders from Dr. Catherine
[2018-09-21] MEDS: HYDROcodone/APAP 7.5/325MG 1 TAB TABLET PO PRN (12:18)
--- NOTE | 2018-09-21 14:20 | PDOC ---
PROGRESS NOTES Subjective Breathing better, still wheezing and coughing though, swelling from allergic reaction has resolved, hyperglycemic with elevated A1C, WBC elevated from steroids, slept a lot and still feels tired Objective Afebrile General: drowsy but alert, pleasant Heart: brderlne tachy Lungs: bilateral expiratory wheezes Abd: obese, soft, non tender Ext: no C/C/E Vital Signs Vital Signs Date Time Temp Pulse Resp B/P (MAP) Pulse Ox O2 Delivery O2 Flow Rate FiO2 09/21/18 13:18 17 Room Air 09/21/18 11:38 97 2.0 09/21/18 10:40 98.2 107 150/93 (112) 98.2 I & O Intake and Output 09/21/18 07:00 Intake Total 950 ml Balance 950 ml Intake Oral 950 ml Tube Feeding 0 ml # Voids 4 Assessment and Plan (1) Allergic reaction Status: Acute (2) COPD exacerbation Status: Acute (3) Hypoxia Status: Acute medication allergy with anaphylaxis improved - continue steroids acute bronchitis with COPD exacerbation - neb tx, IV steroids, po doxycycline hyperglycemia - SSI, A1C consistent with diabetes, start metformin HTN, CHF hx - change metoprolol to carvedilol - 12.5 mg bid GERD - continue home meds chronic back pain - bedrest - tylenol bipolar - continu Cymbalta tachycardia - from drug use, neb tx and asthma exac - improving Jasmin PATTERSON MD September 21, 2018 14:20
[2018-09-21 15:17] VITALS: BP 140/96
[2018-09-21] MEDS: CARVEDILOL 12.5 MG TABLET. PO SCH (17:37)
[2018-09-21 19:00] VITALS: BP 130/78
[2018-09-21] MEDS: MONTELUKAST SODIUM 10 MG TABLET. PO SCH (20:16)
[2018-09-21 23:00] VITALS: BP 129/81
[2018-09-22 03:00] VITALS: BP 109/84
[2018-09-22] MEDS: methylPREDNISolone SOD SUCC PF 40 MG/ML VIAL. IV SCH (06:09)
[2018-09-22 07:00] VITALS: BP 128/77
[2018-09-22] MEDS: INSULIN LISPRO 300 UNITS/3 ML INSULN.PEN. SQ SCH ×2 (08:00→12:00)
[2018-09-22] MEDS: BUDESONIDE 0.5 MG/2 ML NEBU. NEB SCH (08:22)
[2018-09-22] MEDS: IPRATRPIUM/ALBUTEROL 0.5/2.5MG 3 ML NEBU. NEB SCH ×2 (08:22→11:28)
[2018-09-22] MEDS: metFORMIN 500 MG TABLET PO SCH (08:52)
[2018-09-22] MEDS: CARVEDILOL 12.5 MG TABLET. PO SCH (08:52)
[2018-09-22 08:53] VITALS: BP 128/77
[2018-09-22] MEDS: BENZONATATE 100 MG CAPSULE. PO SCH (08:53)
[2018-09-22] MEDS: DOXYCYCLINE HYCLATE 100 MG TABLET PO SCH (08:53)
[2018-09-22] MEDS: FLUoxetine HCL 20 MG CAPSULE PO SCH (08:53)
[2018-09-22] MEDS: LISINOPRIL 20 MG TABLET PO SCH (08:53)
[2018-09-22] MEDS: hydroCHLOROthiazide 25 MG TABLET PO SCH (08:53)
[2018-09-22] MEDS: LACTOBACILLUS RHAMNOSUS GG 1 CAPSULE. PO SCH (08:53)
[2018-09-22] MEDS: ENOXAPARIN 40 MG/0.4 ML SYRINGE. SQ SCH (08:54)
[2018-09-22] MEDS ORDERED: CARV12.511 PO (09:47)
[2018-09-22] MEDS ORDERED: DOXY100T PO (09:47)
[2018-09-22] MEDS ORDERED: BUDE10.2 IH (09:47)
[2018-09-22] MEDS ORDERED: METF500T PO (09:47)
[2018-09-22] MEDS: GEMFIBROZIL 600 MG TABLET. PO SCH (12:00)
[2018-09-22] MEDS: DULoxetine HCL 20 MG CAPSULE.DR PO SCH (12:00)
[2018-09-22] MEDS: HYDROcodone/APAP 7.5/325MG 1 TAB TABLET PO PRN (12:01)
--- NOTE | 2018-09-22 12:41 | NUR ---
Discharge Note: JANEL PHILLIPS Discharge instructions and discharge home medications reviewed with Patient and a copy given. All questions have been answered and understanding verbalized. The following instructions and handouts were given: follow up instructions, medication information. Discontinued lines and drains: peripheral IV, tip intact. Patient discharged to home with self care via private vehicle. Patient left unit alert with all belongings.
--- NOTE | 2018-09-25 19:28 | PDOC3 ---
Discharge Summary [facility] Date of Admission: September 19, 2018 Discharge Date: September 22, 2018 Admitting Diagnosis anaphylaxis Final Diagnosis Problems Medical Problems: (1) Allergic reaction Status: Acute (2) COPD exacerbation Status: Acute (3) Hypoxia Status: Acute CONSULTS none Procedures none Brief Hospital Course Ms. Pedersen is a 48 old who presented with: medication allergy ( she took a quinilone despite being allergic to it) causing anaphylaxis which improved with treatment in the ER and resolved overnight with steroids, epinephrine and antihistamines acute bronchitis with COPD exacerbation - received neb tx, IV steroids, po doxycycline hyperglycemia - SSI, A1C was consistent with diabetes, started metformin and discharged home on it HTN, CHF hx - changed metoprolol to carvedilol - 12.5 mg bid - to help avoid SOPD exac from beta-roshan GERD - controlled, continued home meds chronic back pain - treated with bedrest - tylenol bipolar - continued Cymbalta tachycardia - from drug use, neb tx and asthma exac - improving/resolved substance abuse - meth, counselling recommended Disposition home CONDITION AT DISCHARGE: Improved, Stable Diet diabetic Scheduled Albuterol Sulfate (Albuterol Sulfate Neb Soln), 2.5 MG NEB PRN QID Benzonatate (Tessalon Perle), 1 CAP PO TID Budesonide/Formoterol Fumarate (Symbicort 160-4.5 Mcg Inhaler), 2 PUFF IH BID Carvedilol (Carvedilol ), 12.5 MG PO BIDWMEALS Doxycycline Hyclate (Doxycycline Hyclate), 100 MG PO BID Fluoxetine Hcl (Fluoxetine Hcl), 1 CAP PO DAILYWBKFT Gemfibrozil (Gemfibrozil), 600 MG PO BID, (Reported) Lisinopril/Hydrochlorothiazide (Lisinopril-Hctz 20-25 Mg Tab), 1 TAB PO DAILY, (Reported) Metformin Hcl (Glucophage), 500 MG PO BIDWMEALS Montelukast Sodium (Montelukast Sodium Tablet), 10 MG PO QHS Ondansetron (Zofran Odt), 1 TAB SL Q8HRS Prednisone (Prednisone ), 10 MG PO UD Varenicline Tartrate (Chantix), 0.5 MG PO DAILY Scheduled PRN Alprazolam (Alprazolam), 0.5 MG PO PRN Q6HRS PRN for ANXIETY / AGITATION, (Reported) Hydrocodone/Acetaminophen (Lortab 7.5-325 mg Tablet), 1 TAB PO PRN Q6HRS PRN for PAIN, (Reported) Discontinued Medications Amoxicillin/Potassium Clav (Augmentin 875-125 Tablet), 1 TAB PO BID Duloxetine Hcl (Cymbalta), 20 MG PO DAILY, (Reported) Fluticasone Propionate (Flovent 110MCG Hfa), 2 PUFF IH BID, (Reported) Fluticasone/Salmeterol (Advair 500-50 Diskus), 1 PUFF IH BID Metoprolol Tartrate (Metoprolol Tartrate), 1 TAB PO BID Follow Up 1-2 weeks Jasmin PATTERSON MD Sep 25, 2018 19:28
== END 2018-09-22 12:38 | disposition home or self-care (01) | DRG 916 ==
LOC: ER 17:27 → 6 SOUTH 18:15 → 5 NORTH 09-22 07:25
PROVIDERS: ADMIT Family Medicine; ATTEND Family Medicine
DX: T88.6XXA Anaphylactic reaction due to adverse effect of correct drug or medicament properly administered, initial encounter (principal); J44.1 Chronic obstructive pulmonary disease with (acute) exacerbation; J44.0 Chronic obstructive pulmonary disease with (acute) lower respiratory infection; R09.02 Hypoxemia; E11.65 Type 2 diabetes mellitus with hyperglycemia; T50.995A Adverse effect of other drugs, medicaments and biological substances, initial encounter; E78.00 Pure hypercholesterolemia, unspecified; E78.5 Hyperlipidemia, unspecified; F17.210 Nicotine dependence, cigarettes, uncomplicated; G89.29 Other chronic pain; I11.0 Hypertensive heart disease with heart failure; I50.9 Heart failure, unspecified; J20.9 Acute bronchitis, unspecified; M79.7 Fibromyalgia; Z82.49 Family history of ischemic heart disease and other diseases of the circulatory system; Z82.5 Family history of asthma and other chronic lower respiratory diseases; Z83.3 Family history of diabetes mellitus; Z87.442 Personal history of urinary calculi; Z98.891 History of uterine scar from previous surgery; K21.9 Gastro-esophageal reflux disease without esophagitis; F12.90 Cannabis use, unspecified, uncomplicated; F41.9 Anxiety disorder, unspecified; Z87.440 Personal history of urinary (tract) infections; Y92.89 Other specified places as the place of occurrence of the external cause
CPT/HCPCS: 36415; 71045; 80048; 80053; 82962; 83036; 85007; 85025; 93005; 94640; 94760; 96361; 96374; 96375; J1100; J1650; J1815; J2405; J2920; J3490; J7030; J7620; J7626; 99291-25

== ENCOUNTER 2019-01-04 17:06 | Emergency (ER) | payer MEDICAID, OTHER ==
[~2019-01-04] VITALS: Ht 175.3 cm; Wt 101.2 kg
[~2019-01-04 17:06] MED LIST changes: +BUDE10.2 IH; +CARV12.511 PO; +DOXY100T PO; +DULO20CA PO; +FLUT12AE IH; +LISI1TAB20 PO; -LISI1TAB7 PO; +METF500T PO; +MONT10TA49 PO; -MONT10TA9 PO
[2019-01-04] MEDS ORDERED: IV NORMAL SALINE 1000ML BAG 1,000 ML IV SCH (18:23)
[2019-01-04] MEDS ORDERED: ONDANSETRON PF 4 MG/2 ML VIAL. IV ONE (18:30)
[2019-01-04] MEDS ORDERED: fentaNYL PF VIAL 100 MCG/2 ML VIAL IV PRN (18:30)
[2019-01-04] MEDS ORDERED: IPRATRPIUM/ALBUTEROL 0.5/2.5MG 3 ML NEBU. NEB ONE (18:30)
[2019-01-04 18:35] LABS: BILIRUBIN,URINE NEGATIVE (NEG); CLARITY,URINE CLEAR; COLOR,URINE YELLOW; NITRITE,URINE NEGATIVE (NEG); PH,URINE 6.5; PROTEIN,URINE NEGATIVE (NEG-TRACE)
[2019-01-04 18:44] LABS: BACTERIA,URINE FEW /HPF (0-FEW); SQUAMOUS EPITHELIAL CELL,UR FEW /LPF
--- NOTE | 2019-01-04 19:16 | PHYS DOC ---
Past Medical History Past Medical History: COPD, Diabetes-Type II, Diverticulitis, High Cholesterol, Hypertension Past Surgical History: Additional Past Surgical Histo: throat surgery Additional Information: smokes pack/day Alcohol Use: None Drug Use: Methamphetamine Adult General Chief Complaint Chief Complaint: OTHER COMPLAINTS HPI HPI Patient is a 48-year-old female who presents with complaint of shortness of breath with cough for about a week. Patient indicates that she thinks she's just got a flareup of her COPD. She does indicate that her cough is intermittently productive of sputum. She is not aware that she's had any fever but states that things have been so hot in her home that she can't tell sometimes. She also complains of left lower quadrant abdominal pain for the last few days that she thinks may be a flareup of diverticulitis. She does indicate that she has had some nausea but no vomiting. She denies any diarrhea but does admit that stools have been loose. She rates her pain currently a 5 out of 10. She states that nothing is helping with her symptoms.[] Review of Systems Review of Systems Constitutional: Denies fever or chills [] Respiratory: Positive cough and shortness of breath [] Cardiovascular: No additional information not addressed in HPI [] GI: Complains of left lower quadrant abdominal pain with nausea. Denies vomiting or diarrhea [] : Denies dysuria or hematuria [] Integument: Denies rash or skin lesions [] Neurologic: Denies headache, focal weakness or sensory changes [] All other systems were reviewed and found to be within normal limits, except as documented in this note. Current Medications Current Medications Current Medications Medications (Trade) Dose Ordered Sig/Roberto Start Time Stop Time Status Last Admin Dose Admin Albuterol/ Ipratropium (Duoneb) 3 ml 1X ONCE 01/04/19 18:30 01/04/19 18:31 DC 01/04/19 19:23 3 ML Fentanyl Citrate (Fentanyl 2ml Vial) 25 mcg PRN Q15MIN PRN 01/04/19 18:30 01/05/19 00:32 DC 01/04/19 19:40 25 MCG Info (CONTRAST GIVEN -- Rx MONITORING) 1 each PRN DAILY PRN 01/04/19 20:00 01/05/19 00:32 DC Iohexol (Omnipaque 300 Mg/ml) 75 ml 1X ONCE 01/04/19 20:00 01/04/19 20:01 DC 01/04/19 20:07 75 ML Ondansetron HCl (Zofran) 4 mg 1X ONCE 01/04/19 18:30 01/04/19 18:31 DC 01/04/19 19:40 4 MG Sodium Chloride 1,000 ml @ 1,000 mls/hr Q1H 01/04/19 18:23 01/04/19 19:22 DC 01/04/19 19:40 1,000 MLS/HR Allergies Allergies Allergies Coded Allergies Type Severity Reaction Last Updated Verified ciprofloxacin Allergy Severe Shortness of Air 06/10/17 Yes levofloxacin Allergy Severe Anaphalaxis, swelling of throat 09/21/18 Yes Physical Exam Physical Exam Constitutional: Well developed, well nourished, no acute distress, non-toxic appearance. [] HENT: Normocephalic, atraumatic, bilateral external ears normal, oropharynx moist, no oral exudates, nose normal. [] Eyes: PERRLA, EOMI, conjunctiva normal, no discharge. [] Neck: Normal range of motion, no tenderness, supple, no stridor. [] Cardiovascular: Regular rate and rhythm[] Lungs & Thorax: Fine rhonchi and wheezes are noted bilaterally to auscultation [] Abdomen: Bowel sounds normal, soft, with left lower quadrant tenderness. [] Skin: Warm, dry, no erythema, no rash. [] Extremities: No tenderness, no cyanosis, no clubbing, ROM intact, no edema. [] Neurologic: Alert and oriented X 3, no focal deficits noted. [] Current Patient Data Vital Signs Vital Signs Date Time Temp Pulse Resp B/P (MAP) Pulse Ox O2 Delivery O2 Flow Rate FiO2 01/05/19 00:09 77 92 Room Air 01/04/19 19:40 22 01/04/19 18:20 98.1 98.1 Lab Values Laboratory Tests Test 01/04/19 18:15 01/04/19 18:48 01/04/19 19:30 Urine Collection Type Unknown Urine Color Yellow Urine Clarity Clear Urine pH 6.5 Urine Specific [place] 1.020 Urine Protein Negative mg/dL (NEG-TRACE) Urine Glucose (UA) Negative mg/dL (NEG) Urine Ketones (Stick) Negative mg/dL (NEG) Urine Blood Negative (NEG) Urine Nitrite Negative (NEG) Urine Bilirubin Negative (NEG) Urine Urobilinogen Dipstick 1.0 mg/dL (0.2 mg/dL) Urine Leukocyte Esterase Moderate (NEG) Urine RBC 3-5 /HPF (0-2) Urine WBC 11-20 /HPF (0-4) Urine Squamous Epithelial Cells Few /LPF Urine Bacteria Few /HPF (0-FEW) Urine Mucus Mod /LPF Sodium Level 141 mmol/L (136-145) Potassium Level 3.8 mmol/L (3.5-5.1) Chloride Level 99 mmol/L (98-107) Carbon Dioxide Level 31 mmol/L (21-32) Anion Gap 11 (6-14) Blood Urea Nitrogen 11 mg/dL (7-20) Creatinine 0.8 mg/dL (0.6-1.0) Estimated GFR (Cockcroft-Gault) 75.9 BUN/Creatinine Ratio 14 (6-20) Glucose Level 114 mg/dL (70-99) H Calcium Level 9.6 mg/dL (8.5-10.1) Total Bilirubin 0.4 mg/dL (0.2-1.0) Aspartate Amino Transferase (AST) 18 U/L (15-37) Alanine Aminotransferase (ALT) 17 U/L (14-59) Alkaline Phosphatase 63 U/L (46-116) Total Protein 7.6 g/dL (6.4-8.2) Albumin 4.2 g/dL (3.4-5.0) Albumin/Globulin Ratio 1.2 (1.0-1.7) Lipase 120 U/L (73-393) White Blood Count 13.1 x10^3/uL (4.0-11.0) H Red Blood Count 4.85 x10^6/uL (3.50-5.40) Hemoglobin 14.6 g/dL (12.0-15.5) Hematocrit 41.6 % (36.0-47.0) Mean Corpuscular Volume 86 fL (79-100) Mean Corpuscular Hemoglobin 30 pg (25-35) Mean Corpuscular Hemoglobin Concent 35 g/dL (31-37) Red Cell Distribution Width 13.2 % (11.5-14.5) Platelet Count 324 x10^3/uL (140-400) Neutrophils (%) (Auto) 72 % (31-73) Lymphocytes (%) (Auto) 18 % (24-48) L Monocytes (%) (Auto) 8 % (0-9) Eosinophils (%) (Auto) 1 % (0-3) Basophils (%) (Auto) 0 % (0-3) Neutrophils # (Auto) 9.4 x10^3/uL (1.8-7.7) H Lymphocytes # (Auto) 2.4 x10^3/uL (1.0-4.8) Monocytes # (Auto) 1.0 x10^3/uL (0.0-1.1) Eosinophils # (Auto) 0.2 x10^3/uL (0.0-0.7) Basophils # (Auto) 0.1 x10^3/uL (0.0-0.2) Laboratory Tests 01/04/19 19:30 Laboratory Tests 01/04/19 18:48 EKG EKG [] Interpretation Time: EKG demonstrates normal sinus rhythm with rate of 87. Radiology/Procedures Radiology/Procedures [] Impressions: PROCEDURE: CT ABD PELV W/ IV CONTRST ONLY Exam: CT abdomen and pelvis with IV contrast INDICATION: Left lower quadrant abdominal pain TECHNIQUE: Sequential axial images through the abdomen and pelvis obtained following the administration of 75 mL of Omni 300 IV contrast. Sagittal and coronal reformatted images were reconstructed from the axial data and reviewed. Comparisons: 10/07/2015 FINDINGS: Heart size is normal. No pericardial effusion. Visualized lung bases are clear. No pleural effusion. Liver, spleen, pancreas, gallbladder and adrenals are unremarkable. Kidneys demonstrate symmetric enhancement. No perinephric inflammation or hydronephrosis. There is a 1.3 cm calculus at the left renal hilum. No ureteral calculi. Bladder is decompressed not well evaluated. Uterus is not enlarged. There is a 3.5 cm cystic lesion at the left adnexa. Scattered diverticulosis is noted predominantly at the descending and sigmoid colon without evidence of acute diverticulitis. Remainder of the large and small bowel are unremarkable. No obstruction. No free intra-abdominal air or fluid. Appendix is normal. Abdominal aorta has a normal course and caliber. Abdominal vasculature is patent. No enlarged intra-abdominal lymph nodes are identified. Diastases of the midline lower abdominal wall with fat-containing ventral hernias in the right and left lower quadrant. No suspicious osseous lesions or acute fractures. IMPRESSION: 1. Multiloculated cystic lesion at the left adnexa, likely representing cyst within the left ovary, largest measuring 3.5 cm. This would be better evaluated with ultrasound. 2. Diverticulosis without evidence of acute diverticulitis. 3. A 1.3 cm nonobstructing calculus at the left renal hilum. No evidence for obstructive uropathy. Exposure: One or more of the following in the visualized dose reduction techniques were utilized for this examination: 1. Automated exposure control 2. Adjustment of the MA and/or KV according to patient size 3. Use of iterative of reconstructive technique Electronically signed by: Dami Trent MD (01/04/2019 8:24 PM) [facility] DICTATED and SIGNED BY: DAMI TRENT MD DATE: 01/04/192023 PROCEDURE: PORTABLE CHEST 1V AP portable chest radiograph 01/04/2019 Clinical History: Shortness of breath. An AP erect portable digital radiograph of the chest was obtained. Comparison study is dated 09/19/2018. The cardiac silhouette is normal in size and configuration. The thoracic aorta is minimally tortuous. No acute pulmonary infiltrate is seen. No pleural effusion or pneumothorax is noted. The osseous structures are unchanged. IMPRESSION: No acute abnormality is seen. Electronically signed by: Vicente Yarbrough MD (01/04/2019 7:59 PM) [facility] PROCEDURE: PELVIS W/TV Pelvic ultrasound to include transabdominal and transvaginal imaging 01/04/2019 CLINICAL HISTORY: Left adnexal cystic lesion seen on CT scan. TECHNIQUE: Using the distended urinary bladder as a sonographic window, a real-time ultrasound examination of the pelvis was performed. Additionally in an attempt to better evaluate the uterus and adnexa, a transvaginal ultrasound study was performed. Multiple images were obtained. FINDINGS: Comparison is made to the patient's CT scan of the abdomen and pelvis performed earlier today. The uterus is within normal limits in size. It measures 9.9 x 6.8 x 5.3 cm in longitudinal, transverse, and AP dimensions. A rounded hypoechoic mass is seen involving the anterior aspect of the mid uterine body. This measures 8 mm in greatest diameter. This is consistent with a small fibroid. No additional abnormality of the uterus is seen. The endometrial complex measures 6 mm in thickness which is within normal limits. The right ovary is normal in size and echogenicity. It measures 3.0 x 1.9 x 1.7 cm in size. The left ovary is normal in size. It measures 4.3 x 3.8 x 3.3 cm in size. Within the left ovary a oval-shaped anechoic structure with thin septations is seen. This measures 3.5 cm in greatest diameter. This corresponds to the abnormality seen on the patients CT scan. Normal color-flow and pulse Doppler imaging to both ovaries is seen. No free fluid is noted. IMPRESSION: 1. 8 mm uterine fibroid. 2. 3.5 cm complex cyst is seen involving the left ovary. This corresponds to the abnormality seen on the patients CT scan. This may represent a hemorrhagic cyst.. A repeat ultrasound of the pelvis in 2 months is recommended to document resolution of this finding. Electronically signed by: Vicente Yarbrough MD (01/04/2019 11:31 PM) [facility] Course & Med Decision Making Course & Med Decision Making Pertinent Labs and Imaging studies reviewed. (See chart for details) [] Dragon Disclaimer Dragon Disclaimer This electronic medical record was generated, in whole or in part, using a voice recognition dictation system. Departure Departure Impression: Primary Impression: Bronchitis Additional Impression: Ovarian cyst Disposition: 01 HOME, SELF-CARE Condition: STABLE Referrals: BETI WELSH MD (PCP) Patient Instructions: Acute Bronchitis, Ovarian Cyst Scripts Hydrocodone/Apap 5-325 (NORCO 5-325 TABLET) 1 Each Tablet 1-2 EACH PO PRN Q6HRS PRN for PAIN, #15 as needed for pain Prov: GEOVANI CHRISTIANSON Jr. DO 01/04/19 Azithromycin (ZITHROMAX) 250 Mg Tablet 1 PKG PO UD, #6 TAB Prov: GEOVANI CHRISTIANSON Jr. DO 01/04/19 Problem Qualifiers Additional Impression: Ovarian cyst Laterality: left Qualified Codes: N83.202 - Unspecified ovarian cyst, left side GEOVANI CHRISTIANSON Jr. DO Jan 04, 2019 19:16
[2019-01-04 19:21] LABS: CALCIUM 9.6 mg/dL (8.5-10.1); CREATININE 0.8 mg/dL (0.6-1.0); GFR 75.9; POTASSIUM 3.8 mmol/L (3.5-5.1)
[2019-01-04 19:27] LABS: ALBUMIN 4.2 g/dL (3.4-5.0); ALBUMIN/GLOBULIN RATIO 1.2 (1.0-1.7); TOTAL BILIRUBIN 0.4 mg/dL (0.2-1.0); TOTAL PROTEIN 7.6 g/dL (6.4-8.2)
[2019-01-04 19:35] LABS: BASO # 0.1 x10^3/uL (0.0-0.2); BASO % 0 % (0-3); EOS # 0.2 x10^3/uL (0.0-0.7); EOS % 1 % (0-3); HEMATOCRIT 41.6 % (36.0-47.0); HEMOGLOBIN 14.6 g/dL (12.0-15.5); LYMPH # 2.4 x10^3/uL (1.0-4.8); LYMPH % 18 % (24-48); MEAN CORPUSCULAR HEMOGLOBIN 30 pg (25-35); MEAN CORPUSCULAR HGB CONC 35 g/dL (31-37); MEAN CORPUSCULAR VOLUME 86 fL (79-100); MONO % 8 % (0-9); NEUT # 9.4 x10^3/uL (1.8-7.7); NEUT % 72 % (31-73); PLATELET COUNT 324 x10^3/uL (140-400); RED BLOOD COUNT 4.85 x10^6/uL (3.50-5.40); RED CELL DISTRIBUTION WIDTH 13.2 % (11.5-14.5); WHITE BLOOD COUNT 13.1 x10^3/uL (4.0-11.0)
[2019-01-04] MEDS ORDERED: IOHEXOL 300 MG/ML 100ML VIAL. IV ONE (20:00)
[2019-01-04] MEDS ORDERED: CONTRAST GIVEN. MC PRN (20:00)
--- NOTE | 2019-01-04 20:02 | RAD ---
AP portable chest radiograph 01/04/2019 Clinical History: Shortness of breath. An AP erect portable digital radiograph of the chest was obtained. Comparison study is dated 09/19/2018. The cardiac silhouette is normal in size and configuration. The thoracic aorta is minimally tortuous. No acute pulmonary infiltrate is seen. No pleural effusion or pneumothorax is noted. The osseous structures are unchanged. IMPRESSION: No acute abnormality is seen. Electronically signed by: Vicente Yarbrough MD (01/04/2019 7:59 PM) [facility]
--- NOTE | 2019-01-04 20:27 | RAD ---
Exam: CT abdomen and pelvis with IV contrast INDICATION: Left lower quadrant abdominal pain TECHNIQUE: Sequential axial images through the abdomen and pelvis obtained following the administration of 75 mL of Omni 300 IV contrast. Sagittal and coronal reformatted images were reconstructed from the axial data and reviewed. Comparisons: 10/07/2015 FINDINGS: Heart size is normal. No pericardial effusion. Visualized lung bases are clear. No pleural effusion. Liver, spleen, pancreas, gallbladder and adrenals are unremarkable. Kidneys demonstrate symmetric enhancement. No perinephric inflammation or hydronephrosis. There is a 1.3 cm calculus at the left renal hilum. No ureteral calculi. Bladder is decompressed not well evaluated. Uterus is not enlarged. There is a 3.5 cm cystic lesion at the left adnexa. Scattered diverticulosis is noted predominantly at the descending and sigmoid colon without evidence of acute diverticulitis. Remainder of the large and small bowel are unremarkable. No obstruction. No free intra-abdominal air or fluid. Appendix is normal. Abdominal aorta has a normal course and caliber. Abdominal vasculature is patent. No enlarged intra-abdominal lymph nodes are identified. Diastases of the midline lower abdominal wall with fat-containing ventral hernias in the right and left lower quadrant. No suspicious osseous lesions or acute fractures. IMPRESSION: 1. Multiloculated cystic lesion at the left adnexa, likely representing cyst within the left ovary, largest measuring 3.5 cm. This would be better evaluated with ultrasound. 2. Diverticulosis without evidence of acute diverticulitis. 3. A 1.3 cm nonobstructing calculus at the left renal hilum. No evidence for obstructive uropathy. Exposure: One or more of the following in the visualized dose reduction techniques were utilized for this examination: 1. Automated exposure control 2. Adjustment of the MA and/or KV according to patient size 3. Use of iterative of reconstructive technique Electronically signed by: Dami López MD (01/04/2019 8:24 PM) [facility]
[2019-01-04 21:39] VITALS: BP 163/92
--- NOTE | 2019-01-04 23:33 | RAD ---
Pelvic ultrasound to include transabdominal and transvaginal imaging 01/04/2019 CLINICAL HISTORY: Left adnexal cystic lesion seen on CT scan. TECHNIQUE: Using the distended urinary bladder as a sonographic window, a real-time ultrasound examination of the pelvis was performed. Additionally in an attempt to better evaluate the uterus and adnexa, a transvaginal ultrasound study was performed. Multiple images were obtained. FINDINGS: Comparison is made to the patient's CT scan of the abdomen and pelvis performed earlier today. The uterus is within normal limits in size. It measures 9.9 x 6.8 x 5.3 cm in longitudinal, transverse, and AP dimensions. A rounded hypoechoic mass is seen involving the anterior aspect of the mid uterine body. This measures 8 mm in greatest diameter. This is consistent with a small fibroid. No additional abnormality of the uterus is seen. The endometrial complex measures 6 mm in thickness which is within normal limits. The right ovary is normal in size and echogenicity. It measures 3.0 x 1.9 x 1.7 cm in size. The left ovary is normal in size. It measures 4.3 x 3.8 x 3.3 cm in size. Within the left ovary a oval-shaped anechoic structure with thin septations is seen. This measures 3.5 cm in greatest diameter. This corresponds to the abnormality seen on the patients CT scan. Normal color-flow and pulse Doppler imaging to both ovaries is seen. No free fluid is noted. IMPRESSION: 1. 8 mm uterine fibroid. 2. 3.5 cm complex cyst is seen involving the left ovary. This corresponds to the abnormality seen on the patients CT scan. This may represent a hemorrhagic cyst.. A repeat ultrasound of the pelvis in 2 months is recommended to document resolution of this finding. Electronically signed by: Vicente Yarbrough MD (01/04/2019 11:31 PM) [facility]
[2019-01-04] MEDS ORDERED: HYDR-3164 PO (23:42)
[2019-01-04] MEDS ORDERED: AZIT250T PO (23:42)
--- NOTE | 2019-01-05 05:40 | EKG ---
[facility] [address] [place] [address] Test Date: 2019-01-04 Test Time: 18:32:22 Pat Name: JANEL PHILLIPS Department: Room: Gender: F [employer]: : [id number] Requested By: GEOVANI CHRISTIANSON Order Number: [id number] Reading MD: Measurements Intervals [place] Rate: 87 P: 106 NM: 186 QRS: 34 QRSD: 108 T: 77 QT: 392 QTc: 472 Interpretive Statements SINUS RHYTHM PROLONGED QT NO SPECIFIC ECG ABNORMALITIES RI6.01 No previous ECG available for comparison
== END 2019-01-05 00:25 | disposition home or self-care (01) ==
LOC: ER 17:06
DX: J44.9 Chronic obstructive pulmonary disease, unspecified (principal); N83.202 Unspecified ovarian cyst, left side; E11.9 Type 2 diabetes mellitus without complications; E78.00 Pure hypercholesterolemia, unspecified; I10 Essential (primary) hypertension; F17.200 Nicotine dependence, unspecified, uncomplicated; Z98.890 Other specified postprocedural states; Z88.1 Allergy status to other antibiotic agents
CPT/HCPCS: 36415; 71045; 74177; 76830; 76856; 80053; 81001; 83690; 85025; 87086; 93005; 96374; 96375; 99285; J2405; J3010; J7030; J7620; Q9967; 96361

== ENCOUNTER 2021-04-03 21:15 | Emergency (ER) | payer MEDICAID ==
[~2021-04-03 21:15] MED LIST changes: +AZIT250T PO; +GEMF600T20 PO; -GEMF600T8 PO; +HYDR-3164 PO; -LISI1TAB20 PO; +LISI1TAB39 PO
== END 2021-04-03 22:01 | disposition left against medical advice (07) ==
LOC: ER 21:15
DX: R53.1 Weakness (principal); Z53.21 Procedure and treatment not carried out due to patient leaving prior to being seen by health care provider

== ENCOUNTER → 2021-07-17 | Outpatient (CLI) | payer MEDICAID ==
[2021-06-25 11:00] VITALS: BP 146/87
[~2021-07-17] MED LIST changes: +ATROPINE SULFATE IV; +ENAL1.25 IVP; +LANS30TA6 PO; +LEVE100020 PO; +LISI-130 NG; +PIPE3.377 IV; +[UNRECOGNIZED DRUG - CODE] IV
== END ==
LOC: PMGORTHO 08:24
PROVIDERS: ATTEND Podiatrist
DX: L89.622 Pressure ulcer of left heel, stage 2 (principal); L89.612 Pressure ulcer of right heel, stage 2
CPT/HCPCS: 87075; 87186

== ENCOUNTER 2021-09-17 17:43 | Inpatient (IN) | payer MEDICAID ==
[~2021-09-17] VITALS: Ht 167.6 cm; Wt 113.8 kg
[2021-09-17 18:24] LABS: BASO # 0.1 x10^3/uL (0.0-0.2); BASO % 1 % (0-3); EOS # 0.1 x10^3/uL (0.0-0.7); EOS % 1 % (0-3); HEMATOCRIT 34.5 % (36.0-47.0); HEMOGLOBIN 10.9 g/dL (12.0-15.5); LYMPH # 0.9 x10^3/uL (1.0-4.8); LYMPH % 12 % (24-48); MEAN CORPUSCULAR HEMOGLOBIN 26 pg (25-35); MEAN CORPUSCULAR HGB CONC 32 g/dL (31-37); MEAN CORPUSCULAR VOLUME 84 fL (79-100); MONO # 0.7 x10^3/uL (0.0-1.1); MONO % 9 % (0-9); NEUT % 78 % (31-73); PLATELET COUNT 221 x10^3/uL (140-400); RED BLOOD COUNT 4.12 x10^6/uL (3.50-5.40); RED CELL DISTRIBUTION WIDTH 18.6 % (11.5-14.5); WHITE BLOOD COUNT 7.7 x10^3/uL (4.0-11.0)
[2021-09-17 18:34] LABS: PROTHROMBIN TIME PATIENT 15.2 SEC (11.7-14.0)
[2021-09-17 18:37] LABS: CALCIUM 8.9 mg/dL (8.5-10.1); CREATININE 0.6 mg/dL (0.6-1.0); GFR 104.6; POTASSIUM 3.7 mmol/L (3.5-5.1)
[2021-09-17 18:43] LABS: ALBUMIN 3.5 g/dL (3.4-5.0); ALBUMIN/GLOBULIN RATIO 1.1 (1.0-1.7); TOTAL BILIRUBIN 0.6 mg/dL (0.2-1.0); TOTAL PROTEIN 6.7 g/dL (6.4-8.2)
[2021-09-17] MEDS ORDERED: cefTRIAXone IV Push 1 GM VIAL. IVP ONE (19:15)
[2021-09-17] MEDS ORDERED: FUROSEMIDE 40 MG/4 ML VIAL. IVP ONE (19:15)
[2021-09-17] MEDS ORDERED: DOXYCYCLINE HYCLATE 100 MG in IV DEXTROSE 5% 100ML 100 ML IV ONE (19:15)
--- NOTE | 2021-09-17 19:22 | PHYS DOC ---
Past Medical History Past Medical History: Anxiety, COPD, Diabetes-Type II, Diverticulitis, High Cholesterol, Hypertension Additional Past Medical Histor: COVID W/ TRACH-MAR 2021,DRUG ABUSE,CARDIAC/RESP ARREST,ASPIRITATION PNEUMON Past Surgical History: Other Additional Past Surgical Histo: TRACH Smoking Status: Current Every Day Smoker Alcohol Use: Rarely Drug Use: Methamphetamine General Adult EDM: Chief Complaint: SHORTNESS OF BREATH HPI: HPI: Patient is a 51-year-old female who presents today via [facility] for shortness of air. Patient states the shortness of air has been going on for a approximately 1 week, she said her son turned up her oxygen to 5 L over the weekend and her shortness of air never got any better so she presents here to the emergency department for further evaluation and management. EMS staff states that her initial saturation on 5 L was at 90%, they said they removed her oxygen to transport her to the cart due to the layout of the home they had to take her down by a stair chair, by the time they got her in the back of the ambulance her oxygenation level was around 70% on room air, they placed her on a Ventimask and then they started a DuoNeb treatment due to diminished breath sounds in the field. Patient states that she has not necessarily had a cough over the last week or so she says she feels like she has something in her throat that she cannot cough up. Patient denies chest pain, but does state that she feels like she has more edema than normal and that her abdomen has grown substantially and she is put on quite a bit of weight over the last week and a half as well. Patient states that she is supposed to have surgery with vascular on Wednesday to have her toes amputated due to a previous illness that caused gangrene in her feet. Review of Systems: Review of Systems: Constitutional: Denies fever or chills. [] Eyes: Denies change in visual acuity. [] HENT: Denies nasal congestion or sore throat. [] Respiratory: cough or shortness of breath. [] Cardiovascular: edema. [] GI: Denies abdominal pain, nausea, vomiting, bloody stools or diarrhea. [] : Denies dysuria. [] Musculoskeletal: Denies back pain or joint pain. [] Integument: Denies rash. [] Neurologic: Denies headache, focal weakness or sensory changes. [] Endocrine: Denies polyuria or polydipsia. [] Lymphatic: Denies swollen glands. [] Psychiatric: Denies depression or anxiety. [] Heart Score: C/O Chest Pain: No Risk Factors: Risk Factors: DM, Current or recent (<one month) smoker, HTN, HLP, family history of CAD, obesity. Risk Scores: Score 0 - 3: 2.5% MACE over next 6 weeks - Discharge Home Score 4 - 6: 20.3% MACE over next 6 weeks - Admit for Clinical Observation Score 7 - 10: 72.7% MACE over next 6 weeks - Early Invasive Strategies Current Medications: Current Medications Medications (Trade) Dose Ordered Sig/Roberto Start Time Stop Time Status Last Admin Dose Admin Ceftriaxone Sodium (Rocephin) 1 gm 1X ONCE 09/17/21 19:15 09/17/21 19:16 Doxycycline Hyclate 100 mg/ Dextrose 100 ml @ 50 mls/hr 1X ONCE 09/17/21 19:15 09/17/21 21:14 Furosemide (Lasix) 40 mg 1X ONCE 09/17/21 19:15 09/17/21 19:16 Allergies: Allergies: Allergies Coded Allergies Type Severity Reaction Last Updated Verified ciprofloxacin Allergy Severe Shortness of Air 06/10/17 Yes levofloxacin Allergy Severe Anaphalaxis, swelling of throat 09/21/18 Yes Physical Exam: PE: Constitutional: Patient is a female that is obese in moderate amount of distress and appears ill HENT: Normocephalic, atraumatic, bilateral external ears normal, oropharynx moist, no oral exudates, nose normal. [] Eyes: PERRLA, EOMI, conjunctiva normal, no discharge. [] Neck: Normal range of motion, no tenderness, supple, no stridor. [] Cardiovascular:Heart rate regular rhythm, no murmur [] Lungs & Thorax: Bilateral breath sounds diminished in the bases coarse in the upper lobes Abdomen: Abdomen is large and rotund, is firm to palpation, fluid wave is noted, bowel sounds are hypoactive no pulsatile masses noted Skin: Bilateral feet her toes 2 through 5 are gangrenous and black, she has some redness and located in her feet, cap refill in her great toe is less than 2 seconds. Back: No tenderness, no CVA tenderness. [] Extremities: No tenderness, no cyanosis, no clubbing, ROM intact, 2+ edema in her bilateral legs, peripheral pulses are 2+ Neurologic: Alert and oriented X 3, normal motor function, normal sensory function, no focal deficits noted. [] Psychologic: Affect normal, judgement normal, mood normal. [] Current Patient Data: Labs: Laboratory Tests Test 09/17/21 18:08 White Blood Count 7.7 x10^3/uL (4.0-11.0) Red Blood Count 4.12 x10^6/uL (3.50-5.40) Hemoglobin 10.9 g/dL (12.0-15.5) L Hematocrit 34.5 % (36.0-47.0) L Mean Corpuscular Volume 84 fL (79-100) Mean Corpuscular Hemoglobin 26 pg (25-35) Mean Corpuscular Hemoglobin Concent 32 g/dL (31-37) Red Cell Distribution Width 18.6 % (11.5-14.5) H Platelet Count 221 x10^3/uL (140-400) Neutrophils (%) (Auto) 78 % (31-73) H Lymphocytes (%) (Auto) 12 % (24-48) L Monocytes (%) (Auto) 9 % (0-9) Eosinophils (%) (Auto) 1 % (0-3) Basophils (%) (Auto) 1 % (0-3) Neutrophils # (Auto) 6.0 x10^3/uL (1.8-7.7) Lymphocytes # (Auto) 0.9 x10^3/uL (1.0-4.8) L Monocytes # (Auto) 0.7 x10^3/uL (0.0-1.1) Eosinophils # (Auto) 0.1 x10^3/uL (0.0-0.7) Basophils # (Auto) 0.1 x10^3/uL (0.0-0.2) Prothrombin Time 15.2 SEC (11.7-14.0) H Prothrombin Time INR 1.2 (0.8-1.1) H Activated Partial Thromboplast Time 29 SEC (24-38) Sodium Level 138 mmol/L (136-145) Potassium Level 3.7 mmol/L (3.5-5.1) Chloride Level 92 mmol/L (98-107) L Carbon Dioxide Level 42 mmol/L (21-32) H Anion Gap 4 (6-14) L Blood Urea Nitrogen 12 mg/dL (7-20) Creatinine 0.6 mg/dL (0.6-1.0) Estimated GFR (Cockcroft-Gault) 104.6 BUN/Creatinine Ratio 20 (6-20) Glucose Level 156 mg/dL (70-99) H Lactic Acid Level 1.6 mmol/L (0.4-2.0) Calcium Level 8.9 mg/dL (8.5-10.1) Total Bilirubin 0.6 mg/dL (0.2-1.0) Aspartate Amino Transferase (AST) 12 U/L (15-37) L Alanine Aminotransferase (ALT) 13 U/L (14-59) L Alkaline Phosphatase 96 U/L (46-116) Ammonia 67 mcmol/L (11-34) H Troponin I High Sensitivity 21 ng/L (4-50) EB-Bkm-A-Type Natriuretic Peptide 6587 pg/mL (0-124) H Total Protein 6.7 g/dL (6.4-8.2) Albumin 3.5 g/dL (3.4-5.0) Albumin/Globulin Ratio 1.1 (1.0-1.7) Laboratory Tests 09/17/21 18:08 Laboratory Tests 09/17/21 18:08 Vital Signs: Vital Signs Date Time Temp Pulse Resp B/P (MAP) Pulse Ox O2 Delivery O2 Flow Rate FiO2 09/17/21 17:50 97.9 98 20 158/104 (122) 95 Nasal Cannula 3.0 97.9 Vital Signs Date Time Temp Pulse Resp B/P (MAP) Pulse Ox O2 Delivery O2 Flow Rate FiO2 09/17/21 17:50 97.9 98 20 158/104 (122) 95 Nasal Cannula 3.0 97.9 EKG: EKG: EKG done at [address] Klein at 1843 patient is sinus rhythm at a rate of 92 with an incomplete right bundle branch block with a LA interval of 160 ms with a QTC of 513 ms no STEMI [] Radiology/Procedures: Radiology/Procedures: REASON: SOA PROCEDURE: PORTABLE CHEST 1V EXAM: XR CHEST 1V 09/17/2021 6:21 PM CLINICAL INDICATION: Shortness of air COMPARISON: Chest radiograph 06/21/2021 TECHNIQUE: AP upright view of the chest FINDINGS: The cardiac silhouette is prominent, unchanged. There are new airspace opacities in the right lung. The left lung is clear. No pleural effusion or pneumothorax. No acute osseous abnormality. IMPRESSION: New airspace opacities in the right lung suspicious for pneumonia. Electronically signed by: Magda Jacome MD (09/17/2021 7:25 PM) [id number] [] Course & Med Decision Making: Course & Med Decision Making Pertinent Labs and Imaging studies reviewed. (See chart for details) 1924 I reviewed radiological and laboratory results with patient and family and did inform them that she does have a right lower lobe pneumonia as well as congestive heart failure, I also asked about liver failure and she states she does not have any liver issues that she knows of but I did inform her that the patient's ammonia level was slightly elevated here in the department. Patient was given antibiotics here in the emergency department I did spoke to Dr. Altman who is agreeable to seeing this patient in consultation and admitting her to telemetry for further evaluation and management of her pneumonia, CHF and her abnormal liver findings. Dragon Disclaimer: Dragon Disclaimer: This electronic medical record was generated, in whole or in part, using a voice recognition dictation system. Departure Departure Impression: Primary Impression: Pneumonia Qualified Codes: J18.9 - Pneumonia, unspecified organism Additional Impressions: CHF (congestive heart failure) Qualified Codes: I50.9 - Heart failure, unspecified Hypoxia Serum ammonia increased Abdominal pain Qualified Codes: R10.84 - Generalized abdominal pain Disposition: ADMITTED INPATIENT Admitting Physician: ERUM Condition: STABLE Referrals: BETI WELSH MD (PCP) KHANH BUTTS APRN September 17, 2021 19:22
[2021-09-17 19:24] LABS: INFLUENZA A PATIENT NEGATIVE (NEGATIVE); INFLUENZA B PATIENT NEGATIVE (NEGATIVE)
--- NOTE | 2021-09-17 19:27 | RAD ---
EXAM: XR CHEST 1V 09/17/2021 6:21 PM CLINICAL INDICATION: Shortness of air COMPARISON: Chest radiograph 06/21/2021 TECHNIQUE: AP upright view of the chest FINDINGS: The cardiac silhouette is prominent, unchanged. There are new airspace opacities in the rig ht lung. The left lung is clear. No pleural effusion or pneumothorax. No acute osseous abnormality. IMPRESSION: New airspace opacities in the right lung suspicious for pneumonia. Electronically signed by: Magda Jacome MD (09/17/2021 7:25 PM) [id number]
--- NOTE | 2021-09-17 19:29 | PDOC1 ---
History and Physical Date of Admission Date of Admission DATE: 09/17/21 TIME: 19:26 Identification/Chief Complaint Chief Complaint Shortness of breath Source Source: Patient History of Present Illness History of Present Illness Ms Pedersen is a 51yo female with PMHx Hypertension, hyperlipidemia, OCD, bipolar, PTSD, anxiety, chronic back pain, smoker, amphetamine use disorder, COPD on home O2, smoker, DM2 who comes to ED via EMS from home c/o worsening shortness of breath and 20 pound weight gain in the past 2 weeks. She was hypoxic to 70% on arrival, placed on 5L/min NCO2 with improvement in saturations to 90%, given duonebs. She c/o a "frog in my throat" and notes significant abdominal swelling for the past week. She has planned vascular surgery on 09/19/2021 for multiple to amputations for dry gangrene. She has orthopnea, FOX. She c/o anxiety as well in ED. She has been prescribed home O2 since a complicated stay 04/07/2022-04/30/2021 for COVID 19 requiring tracheostomy and PEG placement, both of which have since been reversed. CXR in ED with right lower lobe consolidation. NT-proBNP > 6000. Given lasix, antibiotics, O2 and admitted for further care. Past Medical History Cardiovascular: HTN, Hyperlipidemia, Other Pulmonary: Bronchitis, COPD, Pneumonia GI: Constipation, Diverticulosis, GERD, Other Hepatobiliary: No pertinent hx Psych: Anxiety, Addictions, Bipolar, Other Rheumatologic: Other Renal/: UTI, Other Endocrine: Diabetes Past Surgical History Past Surgical History: , Other Family History Family History: Chronic Bronchitis, Coronary Artery Disease, Diabetes, Hypertension, Hypothyroidism, Obesity Social History Smoke: <1 pack per day ALCOHOL: none Drugs: Crystal meth Current Medications Current Medications Current Medications Ceftriaxone Sodium (Rocephin) 1 gm 1X ONCE IVP ; Start 09/17/21 at 19:15; Stop 09/17/21 at 19:16; Status DC Doxycycline Hyclate 100 mg/ Dextrose 100 ml @ 50 mls/hr 1X ONCE IV ; Start 09/17/21 at 19:15; Stop 09/17/21 at 21:14 Furosemide (Lasix) 40 mg 1X ONCE IVP ; Start 09/17/21 at 19:15; Stop 09/17/21 at 19:16; Status DC Active Scripts Active Prevacid (Lansoprazole) 30 Mg Tab.rap.dr 1 Tab PO DAILY 30 Days Dexmedetomidin 400Mcg/100Ml-Ns (Dexmedetomidine in 0.9 % NaCl) 400 Mcg/100 Ml Infus..btl 400 Mcg IV CONT PRN PRN 30 Days Keppra (Levetiracetam) 1,000 Mg Tablet 1 Tab PO BID 30 Days Enalaprilat (Enalaprilat Dihydrate) 1.25 Mg/1 Ml Vial 2.5 Mg IVP PRN Q6HRS PRN 30 Days Lisinopril 40 Mg Tablet 20 Mg NG DAILY 30 Days [Atropine Sulfate] 0.1 MG/1 ML Disp.syrin 0.5 Mg IV PRN Q5MIN PRN Carvedilol (Carvedilol) 12.5 Mg Tablet 6.25 Mg PO BIDWMEALS 30 Days Ripley 5-325 Tablet (Acetaminophen/Hydrocodone Bitart) 1 Each Tablet 1-2 Each PO PRN Q6HRS PRN as needed for pain Symbicort 160-4.5 Mcg Inhaler (Budesonide/Formoterol Fumarate) 10.2 Gm Hfa.aer.ad 2 Puff IH BID Montelukast Sodium Tablet (Montelukast Sodium) 10 Mg Tablet 10 Mg PO QHS 30 Days Albuterol Sulfate Neb Soln (Albuterol Sulfate) 2.5 Mg/3 Ml Vial.neb 2.5 Mg NEB PRN QID 30 Days Fluoxetine Hcl 40 Mg Capsule 1 Cap PO DAILYWBKFT Zofran Odt (Ondansetron) 4 Mg Tab.rapdis 1 Tab SL Q8HRS Allergies Allergies: Coded Allergies: ciprofloxacin (Verified Allergy, Severe, Shortness of Air, 06/10/17) itching and rash to bilat hands, levofloxacin (Verified Allergy, Severe, Anaphalaxis, swelling of throat, 09/21/18) ROS General: YES: Fatigue, Malaise; No: Chills, Night Sweats, Appetite, Other PSYCHOLOGICAL ROS: YES: Anxiety, Behavioral Disorder, Irritablity, Memory difficulties, Mood Swings, Obsessive thoughts; No: Concentration difficultie, Decreased libido, Depression, Disorientation, Hallucinations, Hostility, Physical abuse, Sexual abuse, Sleep disturbances, Suicidal ideation, Other Eyes: No Blurry vision, No Decreased vision, No Double vision, No Dry eyes, No Excessive tearing, No Eye Pain, No Itchy Eyes, No Loss of vision, No Photophobia, No Scotomata, No Uses contacts, No Uses glasses, No Other HEENT: No: Heacaches, Visual Changes, Hearing change, Nasal congestion, Nasal discharge, Oral lesions, Sinus pain, Sore Throat, Epistaxis, Sneezing, Snoring, Tinnitus, Vertigo, Vocal changes, Other ALLERGY AND IMMUNOLOGY: No: Hives, Insect Bite Sensitivity, Itchy/Watery Eyes, Nasal Congestion, Post Nasal Drip, Seasonal Allergies, Other Hematological and Lymphatic: No: Bleeding Problems, Blood Clots, Blood Transfusions, Brusing, Night Sweats, Pallor, Swollen Lymph Nodes, Other ENDOCRINE: No: Breast Changes, Galactorrhea, Hair Pattern Changes, Hot Flashes, Malaise/lethargy, Mood Swings, Palpitations, Polydipsia/polyuria, Skin Changes, Temperature Intolerance, Unexpected Weight Changes, Other Breast: No New/Changing Breast Lumps, No Nipple changes, No Nipple discharge, No Other Respiratory: YES: Cough, Shortness of breath, SOB with excertion, Sputum Ch anges, Tachypnea, Wheezing; No: Hemoptysis, Orthopnea, Pleuritic Pain, Stridor, Other Cardiovascular: yes Orthopnea, yes Paroxysmal Noc. Dyspnea, yes Edema; No Chest Pain, No Palpitations, No Lt Headedness, No Other Gastrointestinal: No Nausea, No Vomiting, No Abdominal Pain, No Diarrhea, No Constipation, No Melena, No Hematochezia, No Other Genitourinary: No Dysuria, No Frequency, No Incontinence, No Hematuria, No Retention, No Discharge, No Urgency, No Pain, No Flank Pain, No Other, No , No , No , No , No , No , No Musculoskeletal: No Gait Disturbance, No Joint Pain, No Joint Stiffness, No Joint Swelling, No Muscle Pain, No Muscular Weakness, No Pain In:, No Swelling In:, No Other Neurological: No Behavorial Changes, No Bowel/Bladder ControlChng, No Confusion, No Dizziness, No Gait Disturbance, No Headaches, No Impaired Coord/balance, No Memory Loss, No Numbness/Tingling, No Seizures, No Speech Problems, No Tremors, No Visual Changes, No Weakness, No Other Skin: Yes Rash, Yes Skin Lesion Changes; No Dry Skin, No Eczema, No Hair Changes, No Lumps, No Mole Changes, No Mottling, No Nail Changes, No Pruritus, No Other, No Acne Physical Exam General: Alert, Oriented X3, Cooperative, moderate distress HEENT: Atraumatic, PERRLA, EOMI, Mucous membr. moist/pink, Other (4 teeth) Lungs: Other (inspiratory wheezing and right lower lobe rhonchi, diffuse expiratory wheezing) Heart: S1S2, RRR, no thrills, no rubs, no gallops, no murmurs Breasts: Pt decl breast exam (Bilateral intertrigo) Abdomen: Normal bowel sounds, Soft, Other (Fluid wave) Rectal Exam: not examined Extremities: No clubbing, No cyanosis, Other (1+ edema, 7 necrotic toes) Skin: Other (Toe necrosis 7/10) Neuro: Reflexes 2+ Psych/Mental Status: Other (anxious) Vitals Vitals Vital Signs Date Time Temp Pulse Resp B/P (MAP) Pulse Ox O2 Delivery O2 Flow Rate FiO2 09/17/21 17:50 97.9 98 20 158/104 (122) 95 Nasal Cannula 3.0 97.9 Labs Labs Laboratory Tests Test 09/17/21 18:08 09/17/21 18:45 White Blood Count 7.7 x10^3/uL (4.0-11.0) Red Blood Count 4.12 x10^6/uL (3.50-5.40) Hemoglobin 10.9 g/dL (12.0-15.5) Hematocrit 34.5 % (36.0-47.0) Mean Corpuscular Volume 84 fL (79-100) Mean Corpuscular Hemoglobin 26 pg (25-35) Mean Corpuscular Hemoglobin Concent 32 g/dL (31-37) Red Cell Distribution Width 18.6 % (11.5-14.5) Platelet Count 221 x10^3/uL (140-400) Neutrophils (%) (Auto) 78 % (31-73) Lymphocytes (%) (Auto) 12 % (24-48) Monocytes (%) (Auto) 9 % (0-9) Eosinophils (%) (Auto) 1 % (0-3) Basophils (%) (Auto) 1 % (0-3) Neutrophils # (Auto) 6.0 x10^3/uL (1.8-7.7) Lymphocytes # (Auto) 0.9 x10^3/uL (1.0-4.8) Monocytes # (Auto) 0.7 x10^3/uL (0.0-1.1) Eosinophils # (Auto) 0.1 x10^3/uL (0.0-0.7) Basophils # (Auto) 0.1 x10^3/uL (0.0-0.2) Prothrombin Time 15.2 SEC (11.7-14.0) Prothromb Time International Ratio 1.2 (0.8-1.1) Activated Partial Thromboplast Time 29 SEC (24-38) Sodium Level 138 mmol/L (136-145) Potassium Level 3.7 mmol/L (3.5-5.1) Chloride Level 92 mmol/L (98-107) Carbon Dioxide Level 42 mmol/L (21-32) Anion Gap 4 (6-14) Blood Urea Nitrogen 12 mg/dL (7-20) Creatinine 0.6 mg/dL (0.6-1.0) Estimated GFR (Cockcroft-Gault) 104.6 BUN/Creatinine Ratio 20 (6-20) Glucose Level 156 mg/dL (70-99) Lactic Acid Level 1.6 mmol/L (0.4-2.0) Calcium Level 8.9 mg/dL (8.5-10.1) Total Bilirubin 0.6 mg/dL (0.2-1.0) Aspartate Amino Transf (AST/SGOT) 12 U/L (15-37) Alanine Aminotransferase (ALT/SGPT) 13 U/L (14-59) Alkaline Phosphatase 96 U/L (46-116) Ammonia 67 mcmol/L (11-34) Troponin I High Sensitivity 21 ng/L (4-50) XK-Ath-G-Type Natriuretic Peptide 6587 pg/mL (0-124) Total Protein 6.7 g/dL (6.4-8.2) Albumin 3.5 g/dL (3.4-5.0) Albumin/Globulin Ratio 1.1 (1.0-1.7) Influenza Type A Antigen Negative (NEGATIVE) Influenza Type B Antigen Negative (NEGATIVE) SARS-CoV-2 Antigen (Rapid) Negative (NEGATIVE) Laboratory Tests Test 09/17/21 18:08 09/17/21 18:45 White Blood Count 7.7 x10^3/uL (4.0-11.0) Red Blood Count 4.12 x10^6/uL (3.50-5.40) Hemoglobin 10.9 g/dL (12.0-15.5) Hematocrit 34.5 % (36.0-47.0) Mean Corpuscular Volume 84 fL (79-100) Mean Corpuscular Hemoglobin 26 pg (25-35) Mean Corpuscular Hemoglobin Concent 32 g/dL (31-37) Red Cell Distribution Width 18.6 % (11.5-14.5) Platelet Count 221 x10^3/uL (140-400) Neutrophils (%) (Auto) 78 % (31-73) Lymphocytes (%) (Auto) 12 % (24-48) Monocytes (%) (Auto) 9 % (0-9) Eosinophils (%) (Auto) 1 % (0-3) Basophils (%) (Auto) 1 % (0-3) Neutrophils # (Auto) 6.0 x10^3/uL (1.8-7.7) Lymphocytes # (Auto) 0.9 x10^3/uL (1.0-4.8) Monocytes # (Auto) 0.7 x10^3/uL (0.0-1.1) Eosinophils # (Auto) 0.1 x10^3/uL (0.0-0.7) Basophils # (Auto) 0.1 x10^3/uL (0.0-0.2) Prothrombin Time 15.2 SEC (11.7-14.0) Prothromb Time International Ratio 1.2 (0.8-1.1) Activated Partial Thromboplast Time 29 SEC (24-38) Sodium Level 138 mmol/L (136-145) Potassium Level 3.7 mmol/L (3.5-5.1) Chloride Level 92 mmol/L (98-107) Carbon Dioxide Level 42 mmol/L (21-32) Anion Gap 4 (6-14) Blood Urea Nitrogen 12 mg/dL (7-20) Creatinine 0.6 mg/dL (0.6-1.0) Estimated GFR (Cockcroft-Gault) 104.6 BUN/Creatinine Ratio 20 (6-20) Glucose Level 156 mg/dL (70-99) Lactic Acid Level 1.6 mmol/L (0.4-2.0) Calcium Level 8.9 mg/dL (8.5-10.1) Total Bilirubin 0.6 mg/dL (0.2-1.0) Aspartate Amino Transf (AST/SGOT) 12 U/L (15-37) Alanine Aminotransferase (ALT/SGPT) 13 U/L (14-59) Alkaline Phosphatase 96 U/L (46-116) Ammonia 67 mcmol/L (11-34) Troponin I High Sensitivity 21 ng/L (4-50) WY-Dww-Q-Type Natriuretic Peptide 6587 pg/mL (0-124) Total Protein 6.7 g/dL (6.4-8.2) Albumin 3.5 g/dL (3.4-5.0) Albumin/Globulin Ratio 1.1 (1.0-1.7) Influenza Type A Antigen Negative (NEGATIVE) Influenza Type B Antigen Negative (NEGATIVE) SARS-CoV-2 Antigen (Rapid) Negative (NEGATIVE) Images Images PORTABLE CHEST 1V EXAM: XR CHEST 1V 09/17/2021 6:21 PM CLINICAL INDICATION: Shortness of air COMPARISON: Chest radiograph 06/21/2021 TECHNIQUE: AP upright view of the chest FINDINGS: The cardiac silhouette is prominent, unchanged. There are new airspace opacities in the right lung. The left lung is clear. No pleural effusion or pn eumothorax. No acute osseous abnormality. IMPRESSION: New airspace opacities in the right lung suspicious for pneumonia. VTE Prophylaxis Ordered VTE Prophylaxis Devices: Yes VTE Pharmacological Prophylaxi: Yes Assessment/Plan Assessment/Plan Acute respiratory failure with hypoxia - with pneumonia. Will wean O2 as tolerated Right lower lobe pneumonia - with complicated pulmonary history likely gram negative, doxycycline and rocephin IV Dry gangrene - of 7 toes. Planned amputation on 09/19 per patient. Will inform vascular surgery of inpatient status for respiratory failure, likely delay surgery Asthma with COPD, acute bronchitis - will treat with steroids, aggressive nebulizers, consult pulmonology. May need [employer] eval Acute diastolic CHF - clinically. change to toprol from coreg, diurese with lasix High Cholesterol - statin Hypertension - cont BB Seizure history - was on keppra previously Smoker - still smokes, counseled on cessation H/o amphetamine abuse - states in remission OCD, bipolar, PTSD, anxiety - does not know her medications, will given prn lorazepam DM2 - sliding scale FEN - ADA diet PPX - lovenox FULL CODE Dispo - inpatient Justifications for Admission Other Justification HAM WELLS MD September 17, 2021 19:29
[2021-09-17] MEDS ORDERED: guaiFENesin DM 200MG/20MG 10 ML SYRUP PO PRN (21:00)
[2021-09-17] MEDS ORDERED: ALBUTEROL SULFATE 2.5 MG/3 ML NEBU. NEB PRN (21:00)
[2021-09-17] MEDS ORDERED: ONDANSETRON PF 4 MG/2 ML VIAL. IVP PRN (21:00)
--- NOTE | 2021-09-17 22:20 | NUR ---
The patient, JANEL PHILLIPS, 51 y/o, F admitted by HAM WELLS MD, was given written information regarding hospital policies, unit procedures and contact persons. Valuables were checked and documented in the EMR. Pt states that she thinks she has yeast under bilateral breasts, groins and dhiraj area. and that she itches in dhiraj area. wounds on right and left buttucks, bilateral heels and both feet have toes that are scheduled to be amputated ON 09/19/21. redness under bilateral breasts, bilateral groins and says her dhiraj area itches and also red. and scabs on toes have long hairs attached to them. soaked in cleanser spray to release hairs. pt states she wears two liters per nasal cannula at home. went over home meds with pt, best she could. she doesnt remember dosage of prednisone or metoprolol. lcrn
[2021-09-17 22:22] VITALS: BP 157/90
[2021-09-18] MEDS ORDERED: IBUP-1060 PO (01:34)
[2021-09-18] MEDS ORDERED: [UNRECOGNIZED DRUG - OTHER] (01:34)
[2021-09-18] MEDS ORDERED: PREDNISONE (01:39)
--- NOTE | 2021-09-18 02:00 | NUR ---
pt states she needs something for anxiety. and also reported to Dr Candelaria that sats on 4 liters are between 89-94%. see orders lcrn
[2021-09-18 02:39] VITALS: BP 183/110
[2021-09-18] MEDS ORDERED: DEXTROSE 50% 25 GM / 50ML DISP.SYRIN. IV PRN (03:15)
[2021-09-18] MEDS ORDERED: SODIUM CHLORIDE 0.65% NASAL SPRAY 45ML BOTTLE. NS PRN (03:15)
[2021-09-18] MEDS ORDERED: ENOXAPARIN 40 MG/0.4 ML SYRINGE. SQ SCH (03:15)
[2021-09-18] MEDS ORDERED: fentaNYL PF VIAL 100 MCG/2 ML VIAL IVP PRN (03:15)
[2021-09-18 03:55] LABS: BASO % 0 % (0-3); EOS # 0.1 x10^3/uL (0.0-0.7); EOS % 2 % (0-3); HEMATOCRIT 34.9 % (36.0-47.0); LYMPH # 0.8 x10^3/uL (1.0-4.8); LYMPH % 10 % (24-48); MEAN CORPUSCULAR HEMOGLOBIN 26 pg (25-35); MEAN CORPUSCULAR HGB CONC 32 g/dL (31-37); MEAN CORPUSCULAR VOLUME 84 fL (79-100); MONO # 0.9 x10^3/uL (0.0-1.1); MONO % 11 % (0-9); NEUT # 6.2 x10^3/uL (1.8-7.7); NEUT % 77 % (31-73); PLATELET COUNT 209 x10^3/uL (140-400); RED BLOOD COUNT 4.18 x10^6/uL (3.50-5.40); RED CELL DISTRIBUTION WIDTH 18.8 % (11.5-14.5)
[2021-09-18 04:15] LABS: ALBUMIN 3.2 g/dL (3.4-5.0); ALBUMIN/GLOBULIN RATIO 0.9 (1.0-1.7); ALK PHOS 90 U/L (46-116); ALT (SGPT) 11 U/L (14-59); AST (SGOT) 13 U/L (15-37); BLOOD UREA NITROGEN 10 mg/dL (7-20); BUN/CREATININE RATIO 17 (6-20); CALCIUM 8.6 mg/dL (8.5-10.1); CHLORIDE 93 mmol/L (98-107); CREATININE 0.6 mg/dL (0.6-1.0); GFR 104.6; GLUCOSE 160 mg/dL (70-99); POTASSIUM 3.2 mmol/L (3.5-5.1); SODIUM 144 mmol/L (136-145); TOTAL BILIRUBIN 0.6 mg/dL (0.2-1.0); TOTAL PROTEIN 6.7 g/dL (6.4-8.2)
[2021-09-18 04:24] LABS: CARBON DIOXIDE > 45 mmol/L (21-32)
[2021-09-18 07:00] VITALS: BP 193/112
[2021-09-18] MEDS: methylPREDNISolone SOD SUCC PF 40 MG/ML VIAL. IV SCH ×3 (07:27→21:33)
--- NOTE | 2021-09-18 07:37 | EKG ---
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
[2021-09-18] MEDS: IPRATRPIUM/ALBUTEROL 0.5/2.5MG 3 ML NEBU. NEB SCH ×4 (07:45→21:29)
[2021-09-18] MEDS: BUDESONIDE 0.5 MG/2 ML NEBU. NEB SCH ×2 (07:45→21:29)
[2021-09-18] MEDS: ACETAMINOPHEN 325 MG TABLET. PO PRN (08:16)
[2021-09-18] MEDS: METOPROLOL SUCC 24HR ER 25 MG TAB.ER.24H. PO SCH (08:17)
[2021-09-18] MEDS: ENOXAPARIN 40 MG/0.4 ML SYRINGE. SQ SCH (08:17)
[2021-09-18] MEDS: DOXYCYCLINE HYCLATE 100 MG in IV DEXTROSE 5% 100ML 100 ML IV SCH ×2 (08:17→20:05)
[2021-09-18] MEDS: NYSTATIN TOPICAL POWDER 15GM BOTTLE. TP SCH ×2 (08:18→20:06)
[2021-09-18] MEDS: INSULIN LISPRO 300 UNITS/3 ML VIAL. SQ SCH ×4 (08:22→21:23)
--- NOTE | 2021-09-18 10:35 | CONS ---
DATE OF CONSULTATION: 09/18/2021 ATTENDING PHYSICIAN: Dr. Candelaria. REASON FOR CONSULTATION: Dyspnea and pneumonia. HISTORY OF PRESENT ILLNESS: The patient is a 51-year-old obese female with a BMI of 36.5. She also has a history of hypertension, hyperlipidemia, OCD, bipolar disorder, posttraumatic stress disorder. She also has a history of amphetamine abuse. The patient has COPD, which is oxygen dependent and on home 2 liters. She also has a history of COVID-19 pneumonia with respiratory failure from March of last year to early April. She required tracheostomy and PEG tube placement and both of them have been reversed. She was brought into the hospital with complaint of shortness of breath. She also has a cough. She has some nonspecific chest pain. No fever, no chills. No headaches, no nausea, vomiting or diarrhea. She is currently requiring 4 liters of oxygen. Her chest x-ray was reviewed by me. This was dated September 17. There was right lung airspace opacities consistent with pneumonia. The patient has been started on antibiotic with Rocephin and doxycycline and also has been on steroids as well. I have been asked to see her for further evaluation. PAST MEDICAL HISTORY: Significant for history of hypertension, hyperlipidemia, COPD with chronic respiratory failure, diverticulosis, GERD, bipolar disorder and addiction, UTI and diabetes. PAST SURGICAL HISTORY: . FAMILY HISTORY: Coronary artery disease, diabetes, hypertension, hypothyroidism and obesity. SOCIAL HISTORY: Smoker for 30 years, 1 pack per day. She states she quit tobacco a month ago. REVIEW OF SYSTEMS: 12 point review of systems obtained. Pertinent positives discussed in my present illness, otherwise noncontributory. All systems that were negative were reviewed as well. MEDICATIONS: All reviewed as listed in the [facility] including antibiotics and bronchodilators. ALLERGIES: CIPRO AND LEVAQUIN. PHYSICAL EXAMINATION: VITAL SIGNS: Reviewed. Pulse ox 98% on 3 liters. NECK: Supple. LUNGS: With occasional rhonchi. CARDIOVASCULAR: Regular rate. ABDOMEN: Soft, obese. EXTREMITIES: With no pitting edema. LABORATORY DATA: Labs are reviewed. COVID is negative and influenza negative. BUN 10, creatinine 0.6. Albumin 3.2. Bicarbonate is more than 45. White cell count 8.0, hemoglobin 11.0 and platelets are 209. IMPRESSION: 1. Acute on chronic hypoxic respiratory failure secondary to multifactorial etiologies including acute exacerbation of chronic obstructive pulmonary disease, right lung pneumonia and prior history of COVID-19 viral pneumonia. 2. Acute exacerbation of chronic obstructive pulmonary disease. 3. Suspect chronic hypercapnia as bicarbonate is elevated. She may have obstructive sleep apnea, overlapping with obesity hypoventilation syndrome. We will obtain baseline blood gas. 4. Abnormal chest x-ray consistent with pneumonia. RECOMMENDATIONS: 1. Discussed with Dr. Candelaria. We will continue present oxygen and gradually wean to keep saturation 92% and above. 2. Continue Rocephin and doxycycline. 3. Continue bronchodilators with Pulmicort and DuoNebs. 4. IV Solu-Medrol. 5. Obtain arterial blood gases. 6. If hypercapnia is not compensated, may need BiPAP at nighttime. 7. We will follow along with you. CRISTELA DR: Brando TID: [id number]
[2021-09-18 10:47] VITALS: BP 162/94
--- NOTE | 2021-09-18 11:01 | PDOC ---
[employer] PROGRESS NOTE Date of Service DOS: DATE: 09/18/21 TIME: 10:59 Chief Complaint Chief Complaint Acute respiratory failure with hypoxia - with pneumonia. Will wean O2 as tolerated Right lower lobe pneumonia - with complicated pulmonary history likely gram negative, doxycycline and rocephin IV Dry gangrene - of 7 toes. Planned amputation on 09/19 per patient. Will inform vascular surgery of inpatient status for respiratory failure, likely delay surgery Asthma with COPD, acute bronchitis - will treat with steroids, aggressive nebulizers, consult pulmonology. May need [facility] eval Acute diastolic CHF - clinically. change to toprol from coreg, diurese with lasix High Cholesterol - statin Hypertension - cont BB Seizure history - was on keppra previously Smoker - still smokes, counseled on cessation H/o amphetamine abuse - states in remission OCD, bipolar, PTSD, anxiety - does not know her medications, will given prn genoveva zepam DM2 - sliding scale Headache FEN - ADA diet PPX - lovenox FULL CODE Dispo - inpatient History of Present Illness History of Present Illness Ms Pedersen is a 51yo female with PMHx Hypertension, hyperlipidemia, OCD, bipolar, PTSD, anxiety, chronic back pain, smoker, amphetamine use disorder, COPD on home O2, smoker, DM2 who comes to ED via EMS from home c/o worsening shortness of breath and 20 pound weight gain in the past 2 weeks. She was hypoxic to 70% on arrival, placed on 5L/min NCO2 with improvement in saturations to 90%, given duonebs. She c/o a "frog in my throat" and notes significant abdominal swelling for the past week. She has planned vascular surgery on 09/19/2021 for multiple to amputations for dry gangrene. She has orthopnea, FOX. She c/o anxiety as well in ED. She has been prescribed home O2 since a complicated stay 04/07/2022-04/30/2021 for COVID 19 requiring tracheostomy and PEG placement, both of which have since been reversed. CXR in ED with right lower lobe consolidation. NT-proBNP > 6000. Given lasix, antibiotics, O2 and admitted for further care. 09/18: Potassium 3.3 still hypoxic has good urine output after IV Lasix. Here she is complaining of bilateral foot pain days now is now better and a headache today. Productive cough and with some wheezing. Vitals/I&O Vitals/I&O: Vital Signs Date Time Temp Pulse Resp B/P (MAP) Pulse Ox O2 Delivery O2 Flow Rate FiO2 09/18/21 10:47 97.3 104 20 162/94 (116) 96 Nasal Cannula 4.0 97.3 I & O 09/17/21 09/17/21 09/18/21 15:00 23:00 07:00 Intake Total 420 ml Output Total 725 ml 100 ml Balance -725 ml 320 ml Physical Exam General: Alert, Oriented X3, Cooperative, moderate distress Lungs: Clear Abdomen: Normal bowel sounds, Soft, Other (Fluid wave) Extremities: No clubbing, No cyanosis, Other (1+ edema, 7 necrotic toes) Skin: Other (Toe necrosis 7/10) Labs Labs: Laboratory Tests Test 09/17/21 18:08 09/17/21 18:45 09/18/21 02:50 09/18/21 07:49 White Blood Count 7.7 x10^3/uL (4.0-11.0) 8.0 x10^3/uL (4.0-11.0) Red Blood Count 4.12 x10^6/uL (3.50-5.40) 4.18 x10^6/uL (3.50-5.40) Hemoglobin 10.9 g/dL (12.0-15.5) 11.0 g/dL (12.0-15.5) Hematocrit 34.5 % (36.0-47.0) 34.9 % (36.0-47.0) Mean Corpuscular Volume 84 fL (79-100) 84 fL (79-100) Mean Corpuscular Hemoglobin 26 pg (25-35) 26 pg (25-35) Mean Corpuscular Hemoglobin Concent 32 g/dL (31-37) 32 g/dL (31-37) Red Cell Distribution Width 18.6 % (11.5-14.5) 18.8 % (11.5-14.5) Platelet Count 221 x10^3/uL (140-400) 209 x10^3/uL (140-400) Neutrophils (%) (Auto) 78 % (31-73) 77 % (31-73) Lymphocytes (%) (Auto) 12 % (24-48) 10 % (24-48) Monocytes (%) (Auto) 9 % (0-9) 11 % (0-9) Eosinophils (%) (Auto) 1 % (0-3) 2 % (0-3) Basophils (%) (Auto) 1 % (0-3) 0 % (0-3) Neutrophils # (Auto) 6.0 x10^3/uL (1.8-7.7) 6.2 x10^3/uL (1.8-7.7) Lymphocytes # (Auto) 0.9 x10^3/uL (1.0-4.8) 0.8 x10^3/uL (1.0-4.8) Monocytes # (Auto) 0.7 x10^3/uL (0.0-1.1) 0.9 x10^3/uL (0.0-1.1) Eosinophils # (Auto) 0.1 x10^3/uL (0.0-0.7) 0.1 x10^3/uL (0.0-0.7) Basophils # (Auto) 0.1 x10^3/uL (0.0-0.2) 0.0 x10^3/uL (0.0-0.2) Prothrombin Time 15.2 SEC (11.7-14.0) Prothromb Time International Ratio 1.2 (0.8-1.1) Activated Partial Thromboplast Time 29 SEC (24-38) Sodium Level 138 mmol/L (136-145) 144 mmol/L (136-145) Potassium Level 3.7 mmol/L (3.5-5.1) 3.2 mmol/L (3.5-5.1) Chloride Level 92 mmol/L (98-107) 93 mmol/L (98-107) Carbon Dioxide Level 42 mmol/L (21-32) > 45 mmol/L (21-32) Anion Gap 4 (6-14) (6-14) Blood Urea Nitrogen 12 mg/dL (7-20) 10 mg/dL (7-20) Creatinine 0.6 mg/dL (0.6-1.0) 0.6 mg/dL (0.6-1.0) Estimated GFR (Cockcroft-Gault) 104.6 104.6 BUN/Creatinine Ratio 20 (6-20) 17 (6-20) Glucose Level 156 mg/dL (70-99) 160 mg/dL (70-99) Lactic Acid Level 1.6 mmol/L (0.4-2.0) Calcium Level 8.9 mg/dL (8.5-10.1) 8.6 mg/dL (8.5-10.1) Total Bilirubin 0.6 mg/dL (0.2-1.0) 0.6 mg/dL (0.2-1.0) Aspartate Amino Transf (AST/SGOT) 12 U/L (15-37) 13 U/L (15-37) Alanine Aminotransferase (ALT/SGPT) 13 U/L (14-59) 11 U/L (14-59) Alkaline Phosphatase 96 U/L (46-116) 90 U/L (46-116) Ammonia 67 mcmol/L (11-34) Troponin I High Sensitivity 21 ng/L (4-50) AD-Gfz-T-Type Natriuretic Peptide 6587 pg/mL (0-124) Total Protein 6.7 g/dL (6.4-8.2) 6.7 g/dL (6.4-8.2) Albumin 3.5 g/dL (3.4-5.0) 3.2 g/dL (3.4-5.0) Albumin/Globulin Ratio 1.1 (1.0-1.7) 0.9 (1.0-1.7) Influenza Type A Antigen Negative (NEGATIVE) Influenza Type B Antigen Negative (NEGATIVE) SARS-CoV-2 Antigen (Rapid) Negative (NEGATIVE) Glucose (Fingerstick) 216 mg/dL (70-99) Assessment and Plan Assessmemt and Plan Problems Medical Problems: (1) Abdominal pain Status: Acute (2) CHF (congestive heart failure) Status: Acute (3) Hypoxia Status: Acute (4) Pneumonia Status: Acute (5) Serum ammonia increased Status: Acute Comment Review of Relevant I have reviewed the following items shiraz (where applicable) has been applied. Medications: Current Medications Medications (Trade) Dose Ordered Sig/Roberto Route PRN Reason Start Time Stop Time Status Last Admin Dose Admin Ceftriaxone Sodium (Rocephin) 1 gm 1X ONCE IVP 09/17/21 19:15 09/17/21 19:16 DC 09/17/21 19:15 Doxycycline Hyclate 100 mg/ Dextrose 100 ml @ 50 mls/hr 1X ONCE IV 09/17/21 19:15 09/17/21 21:14 DC 09/17/21 19:15 Furosemide (Lasix) 40 mg 1X ONCE IVP 09/17/21 19:15 09/17/21 19:16 DC 09/17/21 19:15 Doxycycline Hyclate 100 mg/ Dextrose 100 ml @ 50 mls/hr Q12H IV 09/18/21 09:00 09/18/21 08:17 Acetaminophen (Tylenol) 650 mg PRN Q6HRS PRN PO MILD PAIN / TEMP > 100.3'F 09/17/21 21:00 09/18/21 08:16 Albuterol/ Ipratropium (Duoneb) 3 ml RTQID NEB 09/18/21 08:00 09/18/21 07:45 Budesonide (Pulmicort) 0.5 mg RTBID NEB 09/18/21 08:00 09/18/21 07:45 Lorazepam (Ativan Inj) 0.5 mg PRN Q4HRS PRN IVP ANXIETY / AGITATION 09/18/21 02:00 09/18/21 02:11 Metoprolol Succinate (Toprol Xl) 25 mg DAILY PO 09/18/21 09:00 09/18/21 08:17 Methylprednisolone Sodium Succinate (SOLU-Medrol 40MG VIAL) 40 mg Q8HRS IV 09/18/21 06:00 09/18/21 07:27 Insulin Human Lispro (HumaLOG) 0-9 UNITS TIDACHC SQ 09/18/21 07:30 09/18/21 08:22 Enoxaparin Sodium (Lovenox 40mg Syringe) 40 mg Q24H SQ 09/18/21 09:00 09/18/21 08:17 Nystatin (Nystop) 1 jada BID TP 09/18/21 09:00 09/18/21 08:18 Justifications for Admission Other Justification HAM WELLS MD September 18, 2021 11:01
[2021-09-18] MEDS ORDERED: POTASSIUM CHLORIDE 20 MEQ TABLET.ER. PO ONE (11:15)
[2021-09-18] MEDS ORDERED: MAGNESIUM SULFATE 2GM 50 ML IV ONE (12:00)
[2021-09-18] MEDS ORDERED: MAGNESIUM SULFATE 4GM 100 ML IV ONE (12:00)
[2021-09-18 12:08] LABS: BASE EXCESS ABG 19 mmol/L (-3-3); HCO3 ABG 48 mmol/L (21-28); PO2 ABG 94 mmHg (75-108); SAT O2 ABG 96 % (92-99)
[2021-09-18 12:40] LABS: PCO2 ABG 93 mmHg (35-46)
[2021-09-18 12:41] LABS: FIO2 ABG 4L N.C.
--- NOTE | 2021-09-18 13:45 | NUR ---
Wound/Ostomy Care Wound Type/Assessment: Wound care consult for buttocks PU, bilateral heels DFUs and bilateral toes DFUs related to covid toes. Buttocks is now in healing stages. Plans for bilateral toes amputation with vascular surgery when pt's respiratory status is more stable. No other wounds noted. All wounds were cleansed, measured and redressed. Pt educated on PU prevention. Treatment Recommendations/Plan: Cleanse all wounds with saline or wound wash Bilateral heels: cove with Iodoflex and foam, change q3-4 days Bilateral toes: paint with betadine daily Education provided: pt educated on turning and floating heels for wound healing/prevention. Pt will have bring heel medix boots to be applied, advised pt to notified nursing staff if unable to get boots from home so new ones can be order. Offloading surface/device: pillows, purple wedge, pt will have bring heel medix boots to be applied Recommended Referrals/Tests: n/a Discharge Recommendations for dressings: same as above, wc will f/u on 09/24
--- NOTE | 2021-09-18 14:07 | PDOC2 ---
CONSULT Date of Service Date of Service DATE: 09/18/21 TIME: 14:00 Reason for Consult Reason for Consult: Toe gangrene Source Source: Patient History of Present Illness Reason for Visit: This is a pleasant 51-year-old female who was scheduled for surgery tomorrow with us for toe amputations. She has gangrene to several of her toes bilateral feet from prior hospitalization and critical illness. She presented to the hospital in respiratory distress and has had fluid overload with weight gain, this is currently being addressed and treated. At time of my exam the patient reports being nervous. She is on O2 via nasal cannula. She reports her toes bother her on both feet and have since the initial injury, but she is able to walk. She had a normal arterial duplex in May. She denies any fevers or chills. Past Medical History Cardiovascular: HTN, Hyperlipidemia, Other Pulmonary: Bronchitis, COPD, Pneumonia GI: Constipation, Diverticulosis, GERD, Other Hepatobiliary: No pertinent hx Psych: Anxiety, Addictions, Bipolar, Other Rheumatologic: Other Renal/: UTI, Other Endocrine: Diabetes Past Surgical History Past Surgical History: , Other Family History Family History: Chronic Bronchitis, Coronary Artery Disease, Diabetes, Hypertension, Hypothyroidism, Obesity Social History <1 pack per day ALCOHOL: none Drugs: Crystal meth Current Problem List Problem List Problems Medical Problems: (1) Abdominal pain Status: Acute (2) CHF (congestive heart failure) Status: Acute (3) Hypoxia Status: Acute (4) Pneumonia Status: Acute (5) Serum ammonia increased Status: Acute Current Medications Current Medications Current Medications Ceftriaxone Sodium (Rocephin) 1 gm 1X ONCE IVP Last administered on 09/17/21at 19:15; Start 09/17/21 at 19:15; Stop 09/17/21 at 19:16; Status DC Doxycycline Hyclate 100 mg/ Dextrose 100 ml @ 50 mls/hr 1X ONCE IV Last administered on 09/17/21at 19:15; Start 09/17/21 at 19:15; Stop 09/17/21 at 21:14; Status DC Furosemide (Lasix) 40 mg 1X ONCE IVP Last administered on 09/17/21at 19:15; Start 09/17/21 at 19:15; Stop 09/17/21 at 19:16; Status DC Ceftriaxone Sodium (Rocephin) 1 gm DAILY16 IVP ; Start 09/18/21 at 16:00 Doxycycline Hyclate 100 mg/ Dextrose 100 ml @ 50 mls/hr Q12H IV Last administered on 09/18/21at 08:17; Start 09/18/21 at 09:00 Acetaminophen (Tylenol) 650 mg PRN Q6HRS PRN PO MILD PAIN / TEMP > 100.3'F Last administered on 09/18/21at 08:16; Start 09/17/21 at 21:00 Albuterol/ Ipratropium (Duoneb) 3 ml RTQID NEB Last administered on 09/18/21at 11:39; Start 09/18/21 at 08:00 Albuterol Sulfate (Ventolin Neb Soln) 2.5 mg PRN Q4HRS PRN NEB SHORTNESS OF BREATH; Start 09/17/21 at 21:00 Guaifenesin (Robitussin Dm) 10 ml PRN Q6HRS PRN PO COUGH; Start 09/17/21 at 21:00 Ondansetron HCl (Zofran) 4 mg PRN Q4HRS PRN IVP NAUSEA/VOMITING; Start 09/17/21 at 21:00 Budesonide (Pulmicort) 0.5 mg RTBID NEB Last administered on 09/18/21at 07:45; Start 09/18/21 at 08:00 Lorazepam (Ativan Inj) 0.5 mg PRN Q4HRS PRN IVP ANXIETY / AGITATION Last administered on 09/18/21at 02:11; Start 09/18/21 at 02:00 Metoprolol Succinate (Toprol Xl) 25 mg DAILY PO Last administered on 09/18/21at 08:17; Start 09/18/21 at 09:00 Montelukast Sodium (Singulair) 10 mg QHS PO ; Start 09/18/21 at 21:00 Enoxaparin Sodium (Lovenox 40mg Syringe) 40 mg Q24H SQ ; Start 09/18/21 at 03:15; Stop 09/18/21 at 03:15; Status DC Fentanyl Citrate (Fentanyl 2ml Vial) 25 mcg PRN Q3HRS PRN IVP SEVERE PAIN 7-10; Start 09/18/21 at 03:15 Tramadol HCl (Ultram) 50 mg PRN Q6HRS PRN PO PAIN MODERATE, SEVERE; Start 09/18/21 at 03:15 Sodium Chloride (Saline Mist Nasal) 1 jada PRN Q1HR PRN NS NASAL CONGESTION; Start 09/18/21 at 03:15 Methylprednisolone Sodium Succinate (SOLU-Medrol 40MG VIAL) 40 mg Q8HRS IV Last administered on 09/18/21at 07:27; Start 09/18/21 at 06:00 Insulin Human Lispro (HumaLOG) 0-9 UNITS TIDACHC SQ Last administered on 09/18/21at 11:45; Start 09/18/21 at 07:30 Dextrose (Dextrose 50%-Water Syringe) 12.5 gm PRN Q15MIN PRN IV SEE COMMENTS; Start 09/18/21 at 03:15 Enoxaparin Sodium (Lovenox 40mg Syringe) 40 mg Q24H SQ Last administered on 09/18/21at 08:17; Start 09/18/21 at 09:00 Nystatin (Nystop) 1 jada BID TP Last administered on 09/18/21at 08:18; Start 09/18/21 at 09:00 Cefazolin Sodium 1 gm/Sodium Chloride 250 ml @ 250 mls/hr 1X ONCE IRR ; Start 09/19/21 at 06:00; Stop 09/19/21 at 06:59 Potassium Chloride (Klor-Con) 40 meq 1X ONCE PO Last administered on 09/18/21at 11:44; Start 09/18/21 at 11:15; Stop 09/18/21 at 11:16; Status DC Magnesium Sulfate 50 ml @ 25 mls/hr 1X ONCE IV ; Start 09/18/21 at 12:00; Stop 09/18/21 at 13:59; Status DC Magnesium Sulfate 100 ml @ 25 mls/hr 1X ONCE IV Last administered on 09/18/21at 12:12; Start 09/18/21 at 12:00; Stop 09/18/21 at 15:59 Active Scripts Active Prevacid (Lansoprazole) 30 Mg Tab.rap.dr 1 Tab PO DAILY 30 Days Keppra (Levetiracetam) 1,000 Mg Tablet 1 Tab PO BID 30 Days Carvedilol (Carvedilol) 12.5 Mg Tablet 6.25 Mg PO BIDWMEALS 30 Days [place] 5-325 Tablet (Acetaminophen/Hydrocodone Bitart) 1 Each Tablet 1-2 Each PO PRN Q6HRS PRN as needed for pain Symbicort 160-4.5 Mcg Inhaler (Budesonide/Formoterol Fumarate) 10.2 Gm Hfa.aer.ad 2 Puff IH BID Montelukast Sodium Tablet (Montelukast Sodium) 10 Mg Tablet 10 Mg PO QHS 30 Days Albuterol Sulfate Neb Soln (Albuterol Sulfate) 2.5 Mg/3 Ml Vial.neb 2.5 Mg NEB PRN QID 30 Days Fluoxetine Hcl 40 Mg Capsule 1 Cap PO DAILYWBKFT Zofran Odt (Ondansetron) 4 Mg Tab.rapdis 1 Tab SL Q8HRS Reported [Prednisone] [Undefined] Unknown Strength Unknown Dose Ibuprofen 800 Mg Tablet 800 Mg PO PRN Q6HRS PRN Allergies Allergies: Coded Allergies: ciprofloxacin (Verified Allergy, Severe, Shortness of Air, 06/10/17) itching and rash to bilat hands, levofloxacin (Verified Allergy, Severe, Anaphalaxis, swelling of throat, 09/21/18) ROS General: No: Chills, Other (Fever) Respiratory: YES: Shortness of breath, SOB with excertion Cardiovascular: yes Edema; No Chest Pain, No Palpitations Musculoskeletal: Yes Gait Disturbance, Yes Pain In: (Feet), Yes Swelling In: ("Everywhere ") Skin: Yes Skin Lesion Changes Physical Exam General: Alert, Oriented X3, Cooperative, No acute distress Lungs: Normal air movement (O2 via nasal cannula, 4 L) Heart: Regular rate Extremities: Other (She has dry gangrene to her right second, fourth, fifth toes at the tips, left third through fifth toes and both heels. There is no surrounding erythema to the heels, there is minimal erythema to the right toes evidence of demarcation. No drainage or wet gangrene. She has palpable DP Pulses bilaterally. Mild pedal edema. ) Neuro: Normal speech, Sensation intact Psych/Mental Status: Mental status NL, Mood NL Vitals VITALS Vital Signs Date Time Temp Pulse Resp B/P (MAP) Pulse Ox O2 Delivery O2 Flow Rate FiO2 09/18/21 11:56 Nasal Cannula 4.0 09/18/21 10:47 97.3 104 20 162/94 (116) 96 97.3 Labs Labs Laboratory Tests Test 09/17/21 18:08 09/17/21 18:45 09/18/21 02:50 09/18/21 07:49 White Blood Count 7.7 x10^3/uL (4.0-11.0) 8.0 x10^3/uL (4.0-11.0) Red Blood Count 4.12 x10^6/uL (3.50-5.40) 4.18 x10^6/uL (3.50-5.40) Hemoglobin 10.9 g/dL (12.0-15.5) 11.0 g/dL (12.0-15.5) Hematocrit 34.5 % (36.0-47.0) 34.9 % (36.0-47.0) Mean Corpuscular Volume 84 fL (79-100) 84 fL (79-100) Mean Corpuscular Hemoglobin 26 pg (25-35) 26 pg (25-35) Mean Corpuscular Hemoglobin Concent 32 g/dL (31-37) 32 g/dL (31-37) Red Cell Distribution Width 18.6 % (11.5-14.5) 18.8 % (11.5-14.5) Platelet Count 221 x10^3/uL (140-400) 209 x10^3/uL (140-400) Neutrophils (%) (Auto) 78 % (31-73) 77 % (31-73) Lymphocytes (%) (Auto) 12 % (24-48) 10 % (24-48) Monocytes (%) (Auto) 9 % (0-9) 11 % (0-9) Eosinophils (%) (Auto) 1 % (0-3) 2 % (0-3) Basophils (%) (Auto) 1 % (0-3) 0 % (0-3) Neutrophils # (Auto) 6.0 x10^3/uL (1.8-7.7) 6.2 x10^3/uL (1.8-7.7) Lymphocytes # (Auto) 0.9 x10^3/uL (1.0-4.8) 0.8 x10^3/uL (1.0-4.8) Monocytes # (Auto) 0.7 x10^3/uL (0.0-1.1) 0.9 x10^3/uL (0.0-1.1) Eosinophils # (Auto) 0.1 x10^3/uL (0.0-0.7) 0.1 x10^3/uL (0.0-0.7) Basophils # (Auto) 0.1 x10^3/uL (0.0-0.2) 0.0 x10^3/uL (0.0-0.2) Prothrombin Time 15.2 SEC (11.7-14.0) Prothromb Time International Ratio 1.2 (0.8-1.1) Activated Partial Thromboplast Time 29 SEC (24-38) Sodium Level 138 mmol/L (136-145) 144 mmol/L (136-145) Potassium Level 3.7 mmol/L (3.5-5.1) 3.2 mmol/L (3.5-5.1) Chloride Level 92 mmol/L (98-107) 93 mmol/L (98-107) Carbon Dioxide Level 42 mmol/L (21-32) > 45 mmol/L (21-32) Anion Gap 4 (6-14) (6-14) Blood Urea Nitrogen 12 mg/dL (7-20) 10 mg/dL (7-20) Creatinine 0.6 mg/dL (0.6-1.0) 0.6 mg/dL (0.6-1.0) Estimated GFR (Cockcroft-Gault) 104.6 104.6 BUN/Creatinine Ratio 20 (6-20) 17 (6-20) Glucose Level 156 mg/dL (70-99) 160 mg/dL (70-99) Lactic Acid Level 1.6 mmol/L (0.4-2.0) Calcium Level 8.9 mg/dL (8.5-10.1) 8.6 mg/dL (8.5-10.1) Total Bilirubin 0.6 mg/dL (0.2-1.0) 0.6 mg/dL (0.2-1.0) Aspartate Amino Transf (AST/SGOT) 12 U/L (15-37) 13 U/L (15-37) Alanine Aminotransferase (ALT/SGPT) 13 U/L (14-59) 11 U/L (14-59) Alkaline Phosphatase 96 U/L (46-116) 90 U/L (46-116) Ammonia 67 mcmol/L (11-34) Troponin I High Sensitivity 21 ng/L (4-50) BQ-Vhp-D-Type Natriuretic Peptide 6587 pg/mL (0-124) Total Protein 6.7 g/dL (6.4-8.2) 6.7 g/dL (6.4-8.2) Albumin 3.5 g/dL (3.4-5.0) 3.2 g/dL (3.4-5.0) Albumin/Globulin Ratio 1.1 (1.0-1.7) 0.9 (1.0-1.7) Influenza Type A Antigen Negative (NEGATIVE) Influenza Type B Antigen Negative (NEGATIVE) SARS-CoV-2 Antigen (Rapid) Negative (NEGATIVE) Glucose (Fingerstick) 216 mg/dL (70-99) Test 09/18/21 11:20 09/18/21 11:35 09/18/21 12:00 Magnesium Level 1.5 mg/dL (1.8-2.4) Glucose (Fingerstick) 205 mg/dL (70-99) O2 Saturation 96 % (92-99) Arterial Blood pH 7.34 (7.35-7.45) Arterial Blood pCO2 at Patient Temp 93 mmHg (35-46) Arterial Blood pO2 at Patient Temp 94 mmHg (75-108) Arterial Blood HCO3 48 mmol/L (21-28) Arterial Blood Base Excess 19 mmol/L (-3-3) FiO2 4l n.c. Laboratory Tests Test 09/17/21 18:08 09/17/21 18:45 09/18/21 02:50 09/18/21 07:49 White Blood Count 7.7 x10^3/uL (4.0-11.0) 8.0 x10^3/uL (4.0-11.0) Red Blood Count 4.12 x10^6/uL (3.50-5.40) 4.18 x10^6/uL (3.50-5.40) Hemoglobin 10.9 g/dL (12.0-15.5) 11.0 g/dL (12.0-15.5) Hematocrit 34.5 % (36.0-47.0) 34.9 % (36.0-47.0) Mean Corpuscular Volume 84 fL (79-100) 84 fL (79-100) Mean Corpuscular Hemoglobin 26 pg (25-35) 26 pg (25-35) Mean Corpuscular Hemoglobin Concent 32 g/dL (31-37) 32 g/dL (31-37) Red Cell Distribution Width 18.6 % (11.5-14.5) 18.8 % (11.5-14.5) Platelet Count 221 x10^3/uL (140-400) 209 x10^3/uL (140-400) Neutrophils (%) (Auto) 78 % (31-73) 77 % (31-73) Lymphocytes (%) (Auto) 12 % (24-48) 10 % (24-48) Monocytes (%) (Auto) 9 % (0-9) 11 % (0-9) Eosinophils (%) (Auto) 1 % (0-3) 2 % (0-3) Basophils (%) (Auto) 1 % (0-3) 0 % (0-3) Neutrophils # (Auto) 6.0 x10^3/uL (1.8-7.7) 6.2 x10^3/uL (1.8-7.7) Lymphocytes # (Auto) 0.9 x10^3/uL (1.0-4.8) 0.8 x10^3/uL (1.0-4.8) Monocytes # (Auto) 0.7 x10^3/uL (0.0-1.1) 0.9 x10^3/uL (0.0-1.1) Eosinophils # (Auto) 0.1 x10^3/uL (0.0-0.7) 0.1 x10^3/uL (0.0-0.7) Basophils # (Auto) 0.1 x10^3/uL (0.0-0.2) 0.0 x10^3/uL (0.0-0.2) Prothrombin Time 15.2 SEC (11.7-14.0) Prothromb Time International Ratio 1.2 (0.8-1.1) Activated Partial Thromboplast Time 29 SEC (24-38) Sodium Level 138 mmol/L (136-145) 144 mmol/L (136-145) Potassium Level 3.7 mmol/L (3.5-5.1) 3.2 mmol/L (3.5-5.1) Chloride Level 92 mmol/L (98-107) 93 mmol/L (98-107) Carbon Dioxide Level 42 mmol/L (21-32) > 45 mmol/L (21-32) Anion Gap 4 (6-14) (6-14) Blood Urea Nitrogen 12 mg/dL (7-20) 10 mg/dL (7-20) Creatinine 0.6 mg/dL (0.6-1.0) 0.6 mg/dL (0.6-1.0) Estimated GFR (Cockcroft-Gault) 104.6 104.6 BUN/Creatinine Ratio 20 (6-20) 17 (6-20) Glucose Level 156 mg/dL (70-99) 160 mg/dL (70-99) Lactic Acid Level 1.6 mmol/L (0.4-2.0) Calcium Level 8.9 mg/dL (8.5-10.1) 8.6 mg/dL (8.5-10.1) Total Bilirubin 0.6 mg/dL (0.2-1.0) 0.6 mg/dL (0.2-1.0) Aspartate Amino Transf (AST/SGOT) 12 U/L (15-37) 13 U/L (15-37) Alanine Aminotransferase (ALT/SGPT) 13 U/L (14-59) 11 U/L (14-59) Alkaline Phosphatase 96 U/L (46-116) 90 U/L (46-116) Ammonia 67 mcmol/L (11-34) Troponin I High Sensitivity 21 ng/L (4-50) EZ-Gcf-O-Type Natriuretic Peptide 6587 pg/mL (0-124) Total Protein 6.7 g/dL (6.4-8.2) 6.7 g/dL (6.4-8.2) Albumin 3.5 g/dL (3.4-5.0) 3.2 g/dL (3.4-5.0) Albumin/Globulin Ratio 1.1 (1.0-1.7) 0.9 (1.0-1.7) Influenza Type A Antigen Negative (NEGATIVE) Influenza Type B Antigen Negative (NEGATIVE) SARS-CoV-2 Antigen (Rapid) Negative (NEGATIVE) Glucose (Fingerstick) 216 mg/dL (70-99) Test 09/18/21 11:20 09/18/21 11:35 09/18/21 12:00 Magnesium Level 1.5 mg/dL (1.8-2.4) Glucose (Fingerstick) 205 mg/dL (70-99) O2 Saturation 96 % (92-99) Arterial Blood pH 7.34 (7.35-7.45) Arterial Blood pCO2 at Patient Temp 93 mmHg (35-46) Arterial Blood pO2 at Patient Temp 94 mmHg (75-108) Arterial Blood HCO3 48 mmol/L (21-28) Arterial Blood Base Excess 19 mmol/L (-3-3) FiO2 4l n.c. Assessment/Plan Assessment/Plan Bilateral foot digit and heel dry gangrene Pt hospitalized with respiratory distress and issues. We had her scheduled for elective toe amputations and foot debridement tomorrow, however will postpone due to her current medical needs. Her toe and heel wounds are stable. We will continue to follow peripherally and can reschedule toe amputations and foot debridement when her acute issues are resolved. She has palpable DP pulses bilaterally. SKYLER SOTELO September 18, 2021 14:07
[2021-09-18 14:58] VITALS: BP 158/80
[2021-09-18] MEDS: traMADol 50 MG TABLET PO PRN ×2 (16:22→23:35)
[2021-09-18] MEDS: cefTRIAXone IV Push 1 GM VIAL. IVP SCH (16:23)
--- NOTE | 2021-09-18 16:25 | NUR ---
SS following for discharge planning. SS reviewed pt chart and discussed with pt RN. Pt is from home and is currently requiring oxygen at two liters nasal canula. Pulmonology and Vascular following. Pt on IV Doxycycline and IV Solu-Medrol. SS will continue to follow for discharge planning.
[2021-09-18 19:18] VITALS: BP 160/85
[2021-09-18] MEDS: LACTOBACILLUS RHAMNOSUS GG 1 CAPSULE. PO SCH (20:06)
[2021-09-18] MEDS: MONTELUKAST SODIUM 10 MG TABLET. PO SCH (20:06)
[2021-09-18] MEDS: INSULIN GLARGINE SYRINGE. SQ SCH (21:33)
[2021-09-18 22:18] VITALS: BP 182/106
[2021-09-19 02:27] VITALS: BP 144/88
[2021-09-19] MEDS: methylPREDNISolone SOD SUCC PF 40 MG/ML VIAL. IV SCH ×3 (06:07→21:33)
[2021-09-19 07:00] VITALS: BP 163/109
[2021-09-19] MEDS: BUDESONIDE 0.5 MG/2 ML NEBU. NEB SCH ×2 (07:54→20:00)
[2021-09-19] MEDS: IPRATRPIUM/ALBUTEROL 0.5/2.5MG 3 ML NEBU. NEB SCH ×4 (07:54→20:00)
[2021-09-19] MEDS: LACTOBACILLUS RHAMNOSUS GG 1 CAPSULE. PO SCH ×2 (08:40→20:26)
[2021-09-19] MEDS: METOPROLOL SUCC 24HR ER 25 MG TAB.ER.24H. PO SCH (08:40)
[2021-09-19] MEDS: DOXYCYCLINE HYCLATE 100 MG in IV DEXTROSE 5% 100ML 100 ML IV SCH ×2 (08:42→21:36)
[2021-09-19] MEDS: NYSTATIN TOPICAL POWDER 15GM BOTTLE. TP SCH ×2 (08:57→21:00)
[2021-09-19] MEDS: ENOXAPARIN 40 MG/0.4 ML SYRINGE. SQ SCH (08:57)
[2021-09-19] MEDS: INSULIN LISPRO 300 UNITS/3 ML VIAL. SQ SCH ×7 (09:08→21:48)
--- NOTE | 2021-09-19 10:03 | PDOC ---
PULMONARY PROGRESS NOTES DATE: 09/19/21 TIME: 10:01 Subjective Patient is already blood gases are highly abnormal with worsening hypercapnia. Patient was placed on BiPAP last night. She feels much better. Vitals Vital Signs Date Time Temp Pulse Resp B/P (MAP) Pulse Ox O2 Delivery O2 Flow Rate FiO2 09/19/21 08:40 109 163/109 09/19/21 07:59 97 Nasal Cannula 3.0 09/19/21 07:00 97.6 22 97.6 General: Alert, No acute distress HEENT: Other Lungs: Other (Few anterior rhonchi.) Cardiovascular: S1, S2 Abdomen: Soft, Non-tender Extremities: No Edema Skin: Warm Labs Laboratory Tests Test 09/17/21 18:08 09/17/21 18:45 09/18/21 02:50 09/18/21 07:49 White Blood Count 7.7 x10^3/uL (4.0-11.0) 8.0 x10^3/uL (4.0-11.0) Red Blood Count 4.12 x10^6/uL (3.50-5.40) 4.18 x10^6/uL (3.50-5.40) Hemoglobin 10.9 g/dL (12.0-15.5) 11.0 g/dL (12.0-15.5) Hematocrit 34.5 % (36.0-47.0) 34.9 % (36.0-47.0) Mean Corpuscular Volume 84 fL (79-100) 84 fL (79-100) Mean Corpuscular Hemoglobin 26 pg (25-35) 26 pg (25-35) Mean Corpuscular Hemoglobin Concent 32 g/dL (31-37) 32 g/dL (31-37) Red Cell Distribution Width 18.6 % (11.5-14.5) 18.8 % (11.5-14.5) Platelet Count 221 x10^3/uL (140-400) 209 x10^3/uL (140-400) Neutrophils (%) (Auto) 78 % (31-73) 77 % (31-73) Lymphocytes (%) (Auto) 12 % (24-48) 10 % (24-48) Monocytes (%) (Auto) 9 % (0-9) 11 % (0-9) Eosinophils (%) (Auto) 1 % (0-3) 2 % (0-3) Basophils (%) (Auto) 1 % (0-3) 0 % (0-3) Neutrophils # (Auto) 6.0 x10^3/uL (1.8-7.7) 6.2 x10^3/uL (1.8-7.7) Lymphocytes # (Auto) 0.9 x10^3/uL (1.0-4.8) 0.8 x10^3/uL (1.0-4.8) Monocytes # (Auto) 0.7 x10^3/uL (0.0-1.1) 0.9 x10^3/uL (0.0-1.1) Eosinophils # (Auto) 0.1 x10^3/uL (0.0-0.7) 0.1 x10^3/uL (0.0-0.7) Basophils # (Auto) 0.1 x10^3/uL (0.0-0.2) 0.0 x10^3/uL (0.0-0.2) Prothrombin Time 15.2 SEC (11.7-14.0) Prothromb Time International Ratio 1.2 (0.8-1.1) Activated Partial Thromboplast Time 29 SEC (24-38) Sodium Level 138 mmol/L (136-145) 144 mmol/L (136-145) Potassium Level 3.7 mmol/L (3.5-5.1) 3.2 mmol/L (3.5-5.1) Chloride Level 92 mmol/L (98-107) 93 mmol/L (98-107) Carbon Dioxide Level 42 mmol/L (21-32) > 45 mmol/L (21-32) Anion Gap 4 (6-14) (6-14) Blood Urea Nitrogen 12 mg/dL (7-20) 10 mg/dL (7-20) Creatinine 0.6 mg/dL (0.6-1.0) 0.6 mg/dL (0.6-1.0) Estimated GFR (Cockcroft-Gault) 104.6 104.6 BUN/Creatinine Ratio 20 (6-20) 17 (6-20) Glucose Level 156 mg/dL (70-99) 160 mg/dL (70-99) Lactic Acid Level 1.6 mmol/L (0.4-2.0) Calcium Level 8.9 mg/dL (8.5-10.1) 8.6 mg/dL (8.5-10.1) Total Bilirubin 0.6 mg/dL (0.2-1.0) 0.6 mg/dL (0.2-1.0) Aspartate Amino Transf (AST/SGOT) 12 U/L (15-37) 13 U/L (15-37) Alanine Aminotransferase (ALT/SGPT) 13 U/L (14-59) 11 U/L (14-59) Alkaline Phosphatase 96 U/L (46-116) 90 U/L (46-116) Ammonia 67 mcmol/L (11-34) Troponin I High Sensitivity 21 ng/L (4-50) DA-Aab-L-Type Natriuretic Peptide 6587 pg/mL (0-124) Total Protein 6.7 g/dL (6.4-8.2) 6.7 g/dL (6.4-8.2) Albumin 3.5 g/dL (3.4-5.0) 3.2 g/dL (3.4-5.0) Albumin/Globulin Ratio 1.1 (1.0-1.7) 0.9 (1.0-1.7) Influenza Type A Antigen Negative (NEGATIVE) Influenza Type B Antigen Negative (NEGATIVE) SARS-CoV-2 Antigen (Rapid) Negative (NEGATIVE) Glucose (Fingerstick) 216 mg/dL (70-99) Test 09/18/21 11:20 09/18/21 11:35 09/18/21 12:00 09/18/21 17:05 Magnesium Level 1.5 mg/dL (1.8-2.4) Glucose (Fingerstick) 205 mg/dL (70-99) 264 mg/dL (70-99) O2 Saturation 96 % (92-99) Arterial Blood pH 7.34 (7.35-7.45) Arterial Blood pCO2 at Patient Temp 93 mmHg (35-46) Arterial Blood pO2 at Patient Temp 94 mmHg (75-108) Arterial Blood HCO3 48 mmol/L (21-28) Arterial Blood Base Excess 19 mmol/L (-3-3) FiO2 4l n.c. Test 09/18/21 20:01 09/19/21 07:31 Glucose (Fingerstick) 406 mg/dL (70-99) 205 mg/dL (70-99) Laboratory Tests Test 09/18/21 11:20 09/18/21 11:35 09/18/21 12:00 09/18/21 17:05 Magnesium Level 1.5 mg/dL (1.8-2.4) Glucose (Fingerstick) 205 mg/dL (70-99) 264 mg/dL (70-99) O2 Saturation 96 % (92-99) Arterial Blood pH 7.34 (7.35-7.45) Arterial Blood pCO2 at Patient Temp 93 mmHg (35-46) Arterial Blood pO2 at Patient Temp 94 mmHg (75-108) Arterial Blood HCO3 48 mmol/L (21-28) Arterial Blood Base Excess 19 mmol/L (-3-3) FiO2 4l n.c. Test 09/18/21 20:01 09/19/21 07:31 Glucose (Fingerstick) 406 mg/dL (70-99) 205 mg/dL (70-99) Medications Active Scripts Medications Dose Route/Sig Max Daily Dose Days Date Category Dose Instructions [Prednisone] 09/18/21 Reported [Undefined] Unknown Strength Unknown Dose 09/18/21 Reported Ibuprofen 800 Mg Tablet 800 Mg PO PRN Q6HRS PRN 09/18/21 Reported Prevacid (Lansoprazole) 30 Mg Tab.rap.dr 1 Tab PO DAILY 30 04/30/21 Rx Keppra (Levetiracetam) 1,000 Mg Tablet 1 Tab PO BID 30 04/30/21 Rx Carvedilol (Carvedilol) 12.5 Mg Tablet 6.25 Mg PO BIDWMEALS 30 04/30/21 Rx [place] 5-325 Tablet (Acetaminophen/Hydrocodone Bitart) 1 Each Tablet 1-2 Each PO PRN Q6HRS PRN 01/04/19 Rx as needed for pain Symbicort 160-4.5 Mcg Inhaler (Budesonide/Formoterol Fumarate) 10.2 Gm Hfa.aer.ad 2 Puff IH BID 09/22/18 Rx Montelukast Sodium Tablet (Montelukast Sodium) 10 Mg Tablet 10 Mg PO QHS 30 06/15/17 Rx Albuterol Sulfate Neb Soln (Albuterol Sulfate) 2.5 Mg/3 Ml Vial.neb 2.5 Mg NEB PRN QID 30 06/15/17 Rx Fluoxetine Hcl 40 Mg Capsule 1 Cap PO DAILYWBKFT 06/11/17 Rx Zofran Odt (Ondansetron) 4 Mg Tab.rapdis 1 Tab SL Q8HRS 06/03/17 Rx Impression . 1. Acute on chronic hypoxic and hypercapnic respiratory failure secondary to multifactorial etiologies including acute exacerbation of chronic obstructive pulmonary disease, right lung pneumonia and prior history of COVID-19 viral pneumonia with some residual parenchymal abnormalities.. 2. Acute exacerbation of chronic obstructive pulmonary disease. 3. Suspected obstructive sleep apnea, overlapping with obesity hypoventilation syndrome. 4. Abnormal chest x-ray consistent with pneumonia. Plan . 1. Discussed with RN. We will continue present oxygen and gradually wean to keep saturation 92% and above. Avoid hyperoxia. She has done well with overnight BiPAP. We will repeat ABGs today and use BiPAP every night. 2. Continue Rocephin and doxycycline. 3. Continue bronchodilators with Pulmicort and DuoNebs. 4. IV Solu-Medrol. 5. Follow ABGs today. 6. We will follow along with you. 7. She will benefit from outpatient sleep study. THOMAS HAZEL MD September 19, 2021 10:03
--- NOTE | 2021-09-19 10:12 | PDOC ---
[employer] PROGRESS NOTE Date of Service DOS: DATE: 09/19/21 TIME: 10:04 Chief Complaint Chief Complaint Acute respiratory failure with hypoxia - with pneumonia. Will wean O2 as tolerated Right lower lobe pneumonia - with complicated pulmonary history likely gram negative, doxycycline and rocephin IV Dry gangrene - of 7 toes. Planned amputation on 09/19 per patient. Will inform vascular surgery of inpatient status for respiratory failure, likely delay surgery Asthma with COPD, acute bronchitis - will treat with steroids, aggressive nebulizers, consult pulmonology. May need REGULATORY SERVICES CONSULTANT eval Acute diastolic CHF - clinically. change to toprol from coreg, diurese with lasix High Cholesterol - statin Hypertension - cont BB Seizure history - was on keppra previously Smoker - still smokes, counseled on cessation H/o amphetamine abuse - states in remission OCD, bipolar, PTSD, anxiety - does not know her medications, will given prn genoveva zepam DM2 - sliding scale Headache FEN - ADA diet PPX - lovenox FULL CODE Dispo - inpatient History of Present Illness History of Present Illness Ms Pedersen is a 51yo female with PMHx Hypertension, hyperlipidemia, OCD, bipolar, PTSD, anxiety, chronic back pain, smoker, amphetamine use disorder, COPD on home O2, smoker, DM2 who comes to ED via EMS from home c/o worsening shortness of breath and 20 pound weight gain in the past 2 weeks. She was hypoxic to 70% on arrival, placed on 5L/min NCO2 with improvement in saturations to 90%, given duonebs. She c/o a "frog in my throat" and notes significant abdominal swelling for the past week. She has planned vascular surgery on 09/19/2021 for multiple to amputations for dry gangrene. She has orthopnea, FOX. She c/o anxiety as well in ED. She has been prescribed home O2 since a complicated stay 04/07/2022-04/30/2021 for COVID 19 requiring tracheostomy and PEG placement, both of which have since been reversed. CXR in ED with right lower lobe consolidation. NT-proBNP > 6000. Given lasix, antibiotics, O2 and admitted for further care. 09/18: Potassium 3.3 still hypoxic has good urine output after IV Lasix. Here she is complaining of bilateral foot pain days now is now better and a headache today. Productive cough and with some wheezing. PCO2 93 on ABG placed on BiPAP 09/19: Magnesium 1.5 replaced IV did not tolerate BiPAP well mostly due to anxiety she said it actually made her breathing more comfortable. This morning she is a little restless discussed with RT and nursing staff to lower her oxygen goal O2 saturations between 88 and 92% to avoid hypoxemia. Still continue antibiotics for right lower lobe pneumonia. Discussed with vascular surgery to delay surgery for now given her respiratory status. Vitals/I&O Vitals/I&O: Vital Signs Date Time Temp Pulse Resp B/P (MAP) Pulse Ox O2 Delivery O2 Flow Rate FiO2 09/19/21 08:40 109 163/109 09/19/21 07:59 97 Nasal Cannula 3.0 09/19/21 07:00 97.6 22 97.6 I & O 09/18/21 09/18/21 09/19/21 15:00 23:00 07:00 Intake Total 100 ml 200 ml 420 ml Output Total 825 ml 400 ml Balance 100 ml -625 ml 20 ml Physical Exam General: Alert, Oriented X3, Cooperative, No acute distress Heart: Regular rate Lungs: Other (Few anterior rhonchi.) Abdomen: Normal bowel sounds, Soft, Other (Fluid wave) Extremities: Other (She has dry gangrene to her right second, fourth, fifth toes at the tips, left third through fifth toes and both heels. There is no surrounding erythema to the heels, there is minimal erythema to the right toes evidence of demarcation. No drainage or wet gangrene. She has palpable DP Pulses bilaterally. Mild pedal edema. ) Skin: Other (Toe necrosis 11/02) Labs Labs: Laboratory Tests Test 09/18/21 11:20 09/18/21 11:35 09/18/21 12:00 09/18/21 17:05 Magnesium Level 1.5 mg/dL (1.8-2.4) Glucose (Fingerstick) 205 mg/dL (70-99) 264 mg/dL (70-99) O2 Saturation 96 % (92-99) Arterial Blood pH 7.34 (7.35-7.45) Arterial Blood pCO2 at Patient Temp 93 mmHg (35-46) Arterial Blood pO2 at Patient Temp 94 mmHg (75-108) Arterial Blood HCO3 48 mmol/L (21-28) Arterial Blood Base Excess 19 mmol/L (-3-3) FiO2 4l n.c. Test 09/18/21 20:01 09/19/21 07:31 Glucose (Fingerstick) 406 mg/dL (70-99) 205 mg/dL (70-99) Assessment and Plan Assessmemt and Plan Problems Medical Problems: (1) Abdominal pain Status: Acute (2) CHF (congestive heart failure) Status: Acute (3) Hypoxia Status: Acute (4) Pneumonia Status: Acute (5) Serum ammonia increased Status: Acute Comment Review of Relevant I have reviewed the following items shiraz (where applicable) has been applied. Medications: Current Medications Medications (Trade) Dose Ordered Sig/Roberto Route PRN Reason Start Time Stop Time Status Last Admin Dose Admin Ceftriaxone Sodium (Rocephin) 1 gm DAILY16 IVP 09/18/21 16:00 09/18/21 16:23 Montelukast Sodium (Singulair) 10 mg QHS PO 09/18/21 21:00 09/18/21 20:06 Potassium Chloride (Klor-Con) 40 meq 1X ONCE PO 09/18/21 11:15 09/18/21 11:16 DC 09/18/21 11:44 Magnesium Sulfate 50 ml @ 25 mls/hr 1X ONCE IV 09/18/21 12:00 09/18/21 13:59 DC 09/18/21 20:05 Magnesium Sulfate 100 ml @ 25 mls/hr 1X ONCE IV 09/18/21 12:00 09/18/21 15:59 DC 09/18/21 12:12 Lactobacillus Rhamnosus (Culturelle) 1 cap BID PO 09/18/21 21:00 09/19/21 08:40 Insulin Human Lispro (HumaLOG) 5 units TIDAC SQ 09/19/21 07:30 09/19/21 09:09 Insulin Glargine (Lantus Syringe) 10 unit QHS SQ 09/18/21 21:30 09/18/21 21:33 Justifications for Admission Other Justification HAM WELLS MD September 19, 2021 10:12
[2021-09-19 11:00] VITALS: BP 170/104
[2021-09-19 11:34] LABS: CREATININE 0.6 mg/dL (0.6-1.0); GFR 104.6; POTASSIUM 4.3 mmol/L (3.5-5.1)
[2021-09-19 12:52] LABS: BASE EXCESS ABG 15 mmol/L (-3-3); HCO3 ABG 44 mmol/L (21-28); SAT O2 ABG 77 % (92-99)
[2021-09-19 12:56] LABS: PCO2 ABG 80 mmHg (35-46)
[2021-09-19 12:57] LABS: FIO2 ABG 2 LITERS; PO2 ABG 45 mmHg (75-108)
[2021-09-19 15:00] VITALS: BP 171/115
[2021-09-19] MEDS: cefTRIAXone IV Push 1 GM VIAL. IVP SCH (17:03)
[2021-09-19 20:08] VITALS: BP 170/113
[2021-09-19] MEDS: MONTELUKAST SODIUM 10 MG TABLET. PO SCH (20:26)
[2021-09-19] MEDS: INSULIN GLARGINE SYRINGE. SQ SCH (21:47)
[2021-09-19 23:35] VITALS: BP 173/119
[2021-09-20] VITALS (8 sets, daily range): BP systolic 167–188; BP diastolic 104–122
[2021-09-20] MEDS: methylPREDNISolone SOD SUCC PF 40 MG/ML VIAL. IV SCH ×3 (06:00→22:35)
[2021-09-20] MEDS: BUDESONIDE 0.5 MG/2 ML NEBU. NEB SCH ×2 (07:42→20:00)
[2021-09-20] MEDS: IPRATRPIUM/ALBUTEROL 0.5/2.5MG 3 ML NEBU. NEB SCH ×4 (07:42→20:00)
[2021-09-20] MEDS: LACTOBACILLUS RHAMNOSUS GG 1 CAPSULE. PO SCH ×2 (09:06→19:41)
[2021-09-20] MEDS: ENOXAPARIN 40 MG/0.4 ML SYRINGE. SQ SCH (09:07)
[2021-09-20] MEDS: METOPROLOL SUCC 24HR ER 25 MG TAB.ER.24H. PO SCH (09:07)
[2021-09-20] MEDS: DOXYCYCLINE HYCLATE 100 MG in IV DEXTROSE 5% 100ML 100 ML IV SCH ×2 (09:09→20:52)
[2021-09-20] MEDS: NYSTATIN TOPICAL POWDER 15GM BOTTLE. TP SCH ×2 (09:13→20:52)
[2021-09-20] MEDS: INSULIN LISPRO 300 UNITS/3 ML VIAL. SQ SCH ×7 (09:17→20:51)
--- NOTE | 2021-09-20 10:13 | PDOC ---
PULMONARY PROGRESS NOTES DATE: 09/20/21 TIME: 10:12 Subjective Denies any increased shortness of breath. Patient used BiPAP for few hours last night. Vitals Vital Signs Date Time Temp Pulse Resp B/P (MAP) Pulse Ox O2 Delivery O2 Flow Rate FiO2 09/20/21 09:07 109 167/104 09/20/21 07:42 96 Nasal Cannula 2.0 09/20/21 05:05 24 09/20/21 03:35 97.4 97.4 General: Alert, No acute distress HEENT: Other Lungs: Other (Few anterior rhonchi.) Cardiovascular: S1, S2 Abdomen: Soft, Non-tender Extremities: No Edema Skin: Warm Labs Laboratory Tests Test 09/18/21 11:20 09/18/21 11:35 09/18/21 12:00 09/18/21 17:05 Magnesium Level 1.5 mg/dL (1.8-2.4) Glucose (Fingerstick) 205 mg/dL (70-99) 264 mg/dL (70-99) O2 Saturation 96 % (92-99) Arterial Blood pH 7.34 (7.35-7.45) Arterial Blood pCO2 at Patient Temp 93 mmHg (35-46) Arterial Blood pO2 at Patient Temp 94 mmHg (75-108) Arterial Blood HCO3 48 mmol/L (21-28) Arterial Blood Base Excess 19 mmol/L (-3-3) FiO2 4l n.c. Test 09/18/21 20:01 09/19/21 07:31 09/19/21 10:24 09/19/21 11:39 Glucose (Fingerstick) 406 mg/dL (70-99) 205 mg/dL (70-99) Sodium Level 137 mmol/L (136-145) Potassium Level 4.3 mmol/L (3.5-5.1) Chloride Level 93 mmol/L (98-107) Carbon Dioxide Level 41 mmol/L (21-32) Anion Gap 3 (6-14) Blood Urea Nitrogen 11 mg/dL (7-20) Creatinine 0.6 mg/dL (0.6-1.0) Estimated GFR (Cockcroft-Gault) 104.6 Glucose Level 277 mg/dL (70-99) Calcium Level 9.0 mg/dL (8.5-10.1) O2 Saturation 77 % (92-99) Arterial Blood pH 7.36 (7.35-7.45) Arterial Blood pCO2 at Patient Temp 80 mmHg (35-46) Arterial Blood pO2 at Patient Temp 45 mmHg (75-108) Arterial Blood HCO3 44 mmol/L (21-28) Arterial Blood Base Excess 15 mmol/L (-3-3) FiO2 2 liters Test 09/19/21 11:57 09/19/21 16:59 09/19/21 20:44 09/20/21 08:29 Glucose (Fingerstick) 236 mg/dL (70-99) 247 mg/dL (70-99) 282 mg/dL (70-99) 287 mg/dL (70-99) Laboratory Tests Test 09/19/21 10:24 09/19/21 11:39 09/19/21 11:57 09/19/21 16:59 Sodium Level 137 mmol/L (136-145) Potassium Level 4.3 mmol/L (3.5-5.1) Chloride Level 93 mmol/L (98-107) Carbon Dioxide Level 41 mmol/L (21-32) Anion Gap 3 (6-14) Blood Urea Nitrogen 11 mg/dL (7-20) Creatinine 0.6 mg/dL (0.6-1.0) Estimated GFR (Cockcroft-Gault) 104.6 Glucose Level 277 mg/dL (70-99) Calcium Level 9.0 mg/dL (8.5-10.1) O2 Saturation 77 % (92-99) Arterial Blood pH 7.36 (7.35-7.45) Arterial Blood pCO2 at Patient Temp 80 mmHg (35-46) Arterial Blood pO2 at Patient Temp 45 mmHg (75-108) Arterial Blood HCO3 44 mmol/L (21-28) Arterial Blood Base Excess 15 mmol/L (-3-3) FiO2 2 liters Glucose (Fingerstick) 236 mg/dL (70-99) 247 mg/dL (70-99) Test 09/19/21 20:44 09/20/21 08:29 Glucose (Fingerstick) 282 mg/dL (70-99) 287 mg/dL (70-99) Medications Active Scripts Medications Dose Route/Sig Max Daily Dose Days Date Category Dose Instructions [Prednisone] 09/18/21 Reported [Undefined] Unknown Strength Unknown Dose 09/18/21 Reported Ibuprofen 800 Mg Tablet 800 Mg PO PRN Q6HRS PRN 09/18/21 Reported Prevacid (Lansoprazole) 30 Mg Tab.rap.dr 1 Tab PO DAILY 30 04/30/21 Rx Keppra (Levetiracetam) 1,000 Mg Tablet 1 Tab PO BID 30 04/30/21 Rx Carvedilol (Carvedilol) 12.5 Mg Tablet 6.25 Mg PO BIDWMEALS 30 04/30/21 Rx [place] 5-325 Tablet (Acetaminophen/Hydrocodone Bitart) 1 Each Tablet 1-2 Each PO PRN Q6HRS PRN 01/04/19 Rx as needed for pain Symbicort 160-4.5 Mcg Inhaler (Budesonide/Formoterol Fumarate) 10.2 Gm Hfa.aer.ad 2 Puff IH BID 09/22/18 Rx Montelukast Sodium Tablet (Montelukast Sodium) 10 Mg Tablet 10 Mg PO QHS 30 06/15/17 Rx Albuterol Sulfate Neb Soln (Albuterol Sulfate) 2.5 Mg/3 Ml Vial.neb 2.5 Mg NEB PRN QID 30 06/15/17 Rx Fluoxetine Hcl 40 Mg Capsule 1 Cap PO DAILYWBKFT 06/11/17 Rx Zofran Odt (Ondansetron) 4 Mg Tab.rapdis 1 Tab SL Q8HRS 06/03/17 Rx Impression . 1. Acute on chronic hypoxic and hypercapnic respiratory failure secondary to multifactorial etiologies including acute exacerbation of chronic obstructive pulmonary disease, right lung pneumonia and prior history of COVID-19 viral pneumonia with some residual parenchymal abnormalities.. 2. Acute exacerbation of chronic obstructive pulmonary disease. 3. Suspected obstructive sleep apnea, overlapping with obesity hypoventilation syndrome. 4. Abnormal chest x-ray consistent with pneumonia. Plan . Have improved 1. Discussed with RN. We will continue present oxygen and gradually wean to keep saturation 92% and above. Avoid hyperoxia. I have encouraged the patient to use BiPAP at least 4 to 6 hours a night.. 2. Continue Rocephin and doxycycline. 3. Continue bronchodilators with Pulmicort and DuoNebs. 4. IV Solu-Medrol. 5. Physical therapy. 6. We will follow along with you. 7. She will benefit from outpatient sleep study. THOMAS HAZEL MD September 20, 2021 10:13
--- NOTE | 2021-09-20 10:42 | PDOC ---
[employer] PROGRESS NOTE Date of Service DOS: DATE: 09/20/21 TIME: 10:41 Chief Complaint Chief Complaint Acute respiratory failure with hypoxia - with pneumonia. Will wean O2 as tolerated Right lower lobe pneumonia - with complicated pulmonary history likely gram negative, doxycycline and rocephin IV Dry gangrene - of 7 toes. Planned amputation on 09/19 per patient. Will inform vascular surgery of inpatient status for respiratory failure, likely delay surgery Asthma with COPD, acute bronchitis - will treat with steroids, aggressive nebulizers, consult pulmonology. May need AUTOMOTIVE ELECTRICIAN eval Acute diastolic CHF - clinically. change to toprol from coreg, diurese with lasix High Cholesterol - statin Hypertension - cont BB Seizure history - was on keppra previously Smoker - still smokes, counseled on cessation H/o amphetamine abuse - states in remission OCD, bipolar, PTSD, anxiety - does not know her medications, will given prn genoveva zepam DM2 - sliding scale Headache FEN - ADA diet PPX - lovenox FULL CODE Dispo - inpatient History of Present Illness History of Present Illness Ms Pedersen is a 51yo female with PMHx Hypertension, hyperlipidemia, OCD, bipolar, PTSD, anxiety, chronic back pain, smoker, amphetamine use disorder, COPD on home O2, smoker, DM2 who comes to ED via EMS from home c/o worsening shortness of breath and 20 pound weight gain in the past 2 weeks. She was hypoxic to 70% on arrival, placed on 5L/min NCO2 with improvement in saturations to 90%, given duonebs. She c/o a "frog in my throat" and notes significant abdominal swelling for the past week. She has planned vascular surgery on 09/19/2021 for multiple to amputations for dry gangrene. She has orthopnea, FOX. She c/o anxiety as well in ED. She has been prescribed home O2 since a complicated stay 04/07/2022-04/30/2021 for COVID 19 requiring tracheostomy and PEG placement, both of which have since been reversed. CXR in ED with right lower lobe consolidation. NT-proBNP > 6000. Given lasix, antibiotics, O2 and admitted for further care. 09/18: Potassium 3.3 still hypoxic has good urine output after IV Lasix. Here she is complaining of bilateral foot pain days now is now better and a headache today. Productive cough and with some wheezing. PCO2 93 on ABG placed on BiPAP 09/19: Magnesium 1.5 replaced IV did not tolerate BiPAP well mostly due to anxiety she said it actually made her breathing more comfortable. This morning she is a little restless discussed with RT and nursing staff to lower her oxygen goal O2 saturations between 88 and 92% to avoid hypoxemia. Still continue antibiotics for right lower lobe pneumonia. Discussed with vascular surgery to delay surgery for now given her respiratory status. 09/20: 1 BiPAP for little bit overnight. She is having some anxiety right now. Discussed need for outpatient sleep study she is asking when she can get no more comfortable position and go home. Discussed with pulmonology. Vitals/I&O Vitals/I&O: Vital Signs Date Time Temp Pulse Resp B/P (MAP) Pulse Ox O2 Delivery O2 Flow Rate FiO2 09/20/21 09:07 109 167/104 09/20/21 07:42 96 Nasal Cannula 2.0 09/20/21 05:05 24 09/20/21 03:35 97.4 97.4 I & O 09/19/21 09/19/21 09/20/21 15:00 23:00 07:00 Intake Total 400 ml 275 ml 490 ml Output Total 300 ml 100 ml 150 ml Balance 100 ml 175 ml 340 ml Physical Exam General: Alert, Oriented X3, Cooperative, No acute distress Heart: Regular rate Lungs: Other (Few anterior rhonchi.) Abdomen: Normal bowel sounds, Soft, Other (Fluid wave) Extremities: Other (She has dry gangrene to her right second, fourth, fifth toes at the tips, left third through fifth toes and both heels. There is no surrounding erythema to the heels, there is minimal erythema to the right toes evidence of demarcation. No drainage or wet gangrene. She has palpable DP Pulses bilaterally. Mild pedal edema. ) Skin: Other (Toe necrosis 11/02) Labs Labs: Laboratory Tests Test 09/19/21 11:39 09/19/21 11:57 09/19/21 16:59 09/19/21 20:44 O2 Saturation 77 % (92-99) Arterial Blood pH 7.36 (7.35-7.45) Arterial Blood pCO2 at Patient Temp 80 mmHg (35-46) Arterial Blood pO2 at Patient Temp 45 mmHg (75-108) Arterial Blood HCO3 44 mmol/L (21-28) Arterial Blood Base Excess 15 mmol/L (-3-3) FiO2 2 liters Glucose (Fingerstick) 236 mg/dL (70-99) 247 mg/dL (70-99) 282 mg/dL (70-99) Test 09/20/21 08:29 Glucose (Fingerstick) 287 mg/dL (70-99) Assessment and Plan Assessmemt and Plan Problems Medical Problems: (1) Abdominal pain Status: Acute (2) CHF (congestive heart failure) Status: Acute (3) Hypoxia Status: Acute (4) Pneumonia Status: Acute (5) Serum ammonia increased Status: Acute Comment Review of Relevant I have reviewed the following items shiraz (where applicable) has been applied. Justifications for Admission Other Justification HAM WELLS MD September 20, 2021 10:42
--- NOTE | 2021-09-20 15:41 | NUR ---
Toe & heel wounds cleansed & redressed. Under breasts & pannus cleansed & nystatin powder placed.
[2021-09-20] MEDS: cefTRIAXone IV Push 1 GM VIAL. IVP SCH (17:41)
[2021-09-20] MEDS: MONTELUKAST SODIUM 10 MG TABLET. PO SCH (19:41)
[2021-09-20] MEDS: INSULIN GLARGINE SYRINGE. SQ SCH (20:51)
[2021-09-20] MEDS: hydrALAZINE 20 MG/ML VIAL. IVP PRN (23:20)
[2021-09-21 03:06] VITALS: BP 172/109
[2021-09-21 04:53] LABS: CREATININE 0.7 mg/dL (0.6-1.0); GFR 87.5; POTASSIUM 4.9 mmol/L (3.5-5.1)
[2021-09-21 04:58] LABS: BASO % 0 % (0-3); EOS % 0 % (0-3); HEMATOCRIT 39.5 % (36.0-47.0); HEMOGLOBIN 12.3 g/dL (12.0-15.5); LYMPH # 0.8 x10^3/uL (1.0-4.8); LYMPH % 6 % (24-48); MEAN CORPUSCULAR HEMOGLOBIN 27 pg (25-35); MEAN CORPUSCULAR HGB CONC 31 g/dL (31-37); MEAN CORPUSCULAR VOLUME 86 fL (79-100); MONO # 0.8 x10^3/uL (0.0-1.1); MONO % 6 % (0-9); NEUT # 12.5 x10^3/uL (1.8-7.7); NEUT % 89 % (31-73); PLATELET COUNT 382 x10^3/uL (140-400); RED BLOOD COUNT 4.62 x10^6/uL (3.50-5.40); RED CELL DISTRIBUTION WIDTH 18.8 % (11.5-14.5); WHITE BLOOD COUNT 14.1 x10^3/uL (4.0-11.0)
[2021-09-21] MEDS: methylPREDNISolone SOD SUCC PF 40 MG/ML VIAL. IV SCH ×3 (06:08→20:17)
[2021-09-21 06:35] LABS: % BANDS 2 % (0-9); % LYMPHS 13 % (24-48); % MONOS 7 % (0-10); % SEGS 78 % (35-66); PLT ESTIMATE ADEQUATE (ADEQUATE)
[2021-09-21 07:00] VITALS: BP 176/102
[2021-09-21] MEDS: BUDESONIDE 0.5 MG/2 ML NEBU. NEB SCH ×2 (07:11→19:19)
[2021-09-21] MEDS: IPRATRPIUM/ALBUTEROL 0.5/2.5MG 3 ML NEBU. NEB SCH ×4 (07:11→19:19)
[2021-09-21] MEDS: LACTOBACILLUS RHAMNOSUS GG 1 CAPSULE. PO SCH ×2 (08:49→20:16)
[2021-09-21] MEDS: METOPROLOL SUCC 24HR ER 25 MG TAB.ER.24H. PO SCH (08:49)
[2021-09-21] MEDS: ENOXAPARIN 40 MG/0.4 ML SYRINGE. SQ SCH (08:51)
[2021-09-21] MEDS: INSULIN LISPRO 300 UNITS/3 ML VIAL. SQ SCH ×7 (08:54→21:00)
[2021-09-21] MEDS: NYSTATIN TOPICAL POWDER 15GM BOTTLE. TP SCH ×2 (09:00→20:17)
[2021-09-21] MEDS: DOXYCYCLINE HYCLATE 100 MG in IV DEXTROSE 5% 100ML 100 ML IV SCH ×2 (09:13→20:23)
[2021-09-21 11:00] VITALS: BP 130/60
--- NOTE | 2021-09-21 11:34 | PDOC ---
PULMONARY PROGRESS NOTES DATE: 09/21/21 TIME: 11:33 Subjective Patient appears weak and lethargic. She did not use BiPAP last night. Vitals Vital Signs Date Time Temp Pulse Resp B/P (MAP) Pulse Ox O2 Delivery O2 Flow Rate FiO2 09/21/21 11:21 95 Nasal Cannula 2.0 09/21/21 08:49 109 176/102 09/21/21 07:00 97.6 24 97.6 General: Alert, No acute distress HEENT: Other Lungs: Other (Few anterior rhonchi.) Cardiovascular: S1, S2 Abdomen: Soft, Non-tender Extremities: No Edema Skin: Warm Labs Laboratory Tests Test 09/19/21 11:39 09/19/21 11:57 09/19/21 16:59 09/19/21 20:44 O2 Saturation 77 % (92-99) Arterial Blood pH 7.36 (7.35-7.45) Arterial Blood pCO2 at Patient Temp 80 mmHg (35-46) Arterial Blood pO2 at Patient Temp 45 mmHg (75-108) Arterial Blood HCO3 44 mmol/L (21-28) Arterial Blood Base Excess 15 mmol/L (-3-3) FiO2 2 liters Glucose (Fingerstick) 236 mg/dL (70-99) 247 mg/dL (70-99) 282 mg/dL (70-99) Test 09/20/21 08:29 09/20/21 11:52 09/20/21 12:13 09/20/21 16:59 Glucose (Fingerstick) 287 mg/dL (70-99) 294 mg/dL (70-99) 244 mg/dL (70-99) 274 mg/dL (70-99) Test 09/20/21 20:48 09/21/21 03:45 09/21/21 07:44 Glucose (Fingerstick) 340 mg/dL (70-99) 217 mg/dL (70-99) White Blood Count 14.1 x10^3/uL (4.0-11.0) Red Blood Count 4.62 x10^6/uL (3.50-5.40) Hemoglobin 12.3 g/dL (12.0-15.5) Hematocrit 39.5 % (36.0-47.0) Mean Corpuscular Volume 86 fL (79-100) Mean Corpuscular Hemoglobin 27 pg (25-35) Mean Corpuscular Hemoglobin Concent 31 g/dL (31-37) Red Cell Distribution Width 18.8 % (11.5-14.5) Platelet Count 382 x10^3/uL (140-400) Neutrophils (%) (Auto) 89 % (31-73) Lymphocytes (%) (Auto) 6 % (24-48) Monocytes (%) (Auto) 6 % (0-9) Eosinophils (%) (Auto) 0 % (0-3) Basophils (%) (Auto) 0 % (0-3) Neutrophils # (Auto) 12.5 x10^3/uL (1.8-7.7) Lymphocytes # (Auto) 0.8 x10^3/uL (1.0-4.8) Monocytes # (Auto) 0.8 x10^3/uL (0.0-1.1) Eosinophils # (Auto) 0.0 x10^3/uL (0.0-0.7) Basophils # (Auto) 0.0 x10^3/uL (0.0-0.2) Segmented Neutrophils % 78 % (35-66) Band Neutrophils % 2 % (0-9) Lymphocytes % 13 % (24-48) Monocytes % 7 % (0-10) Platelet Estimate Adequate (ADEQUATE) Sodium Level 133 mmol/L (136-145) Potassium Level 4.9 mmol/L (3.5-5.1) Chloride Level 91 mmol/L (98-107) Carbon Dioxide Level 38 mmol/L (21-32) Anion Gap 4 (6-14) Blood Urea Nitrogen 26 mg/dL (7-20) Creatinine 0.7 mg/dL (0.6-1.0) Estimated GFR (Cockcroft-Gault) 87.5 Glucose Level 283 mg/dL (70-99) Calcium Level 9.0 mg/dL (8.5-10.1) Laboratory Tests Test 09/20/21 11:52 09/20/21 12:13 09/20/21 16:59 09/20/21 20:48 Glucose (Fingerstick) 294 mg/dL (70-99) 244 mg/dL (70-99) 274 mg/dL (70-99) 340 mg/dL (70-99) Test 09/21/21 03:45 09/21/21 07:44 White Blood Count 14.1 x10^3/uL (4.0-11.0) Red Blood Count 4.62 x10^6/uL (3.50-5.40) Hemoglobin 12.3 g/dL (12.0-15.5) Hematocrit 39.5 % (36.0-47.0) Mean Corpuscular Volume 86 fL (79-100) Mean Corpuscular Hemoglobin 27 pg (25-35) Mean Corpuscular Hemoglobin Concent 31 g/dL (31-37) Red Cell Distribution Width 18.8 % (11.5-14.5) Platelet Count 382 x10^3/uL (140-400) Neutrophils (%) (Auto) 89 % (31-73) Lymphocytes (%) (Auto) 6 % (24-48) Monocytes (%) (Auto) 6 % (0-9) Eosinophils (%) (Auto) 0 % (0-3) Basophils (%) (Auto) 0 % (0-3) Neutrophils # (Auto) 12.5 x10^3/uL (1.8-7.7) Lymphocytes # (Auto) 0.8 x10^3/uL (1.0-4.8) Monocytes # (Auto) 0.8 x10^3/uL (0.0-1.1) Eosinophils # (Auto) 0.0 x10^3/uL (0.0-0.7) Basophils # (Auto) 0.0 x10^3/uL (0.0-0.2) Segmented Neutrophils % 78 % (35-66) Band Neutrophils % 2 % (0-9) Lymphocytes % 13 % (24-48) Monocytes % 7 % (0-10) Platelet Estimate Adequate (ADEQUATE) Sodium Level 133 mmol/L (136-145) Potassium Level 4.9 mmol/L (3.5-5.1) Chloride Level 91 mmol/L (98-107) Carbon Dioxide Level 38 mmol/L (21-32) Anion Gap 4 (6-14) Blood Urea Nitrogen 26 mg/dL (7-20) Creatinine 0.7 mg/dL (0.6-1.0) Estimated GFR (Cockcroft-Gault) 87.5 Glucose Level 283 mg/dL (70-99) Calcium Level 9.0 mg/dL (8.5-10.1) Glucose (Fingerstick) 217 mg/dL (70-99) Medications Active Scripts Medications Dose Route/Sig Max Daily Dose Days Date Category Dose Instructions [Prednisone] 09/18/21 Reported [Undefined] Unknown Strength Unknown Dose 09/18/21 Reported Ibuprofen 800 Mg Tablet 800 Mg PO PRN Q6HRS PRN 09/18/21 Reported Prevacid (Lansoprazole) 30 Mg Tab.rap.dr 1 Tab PO DAILY 30 04/30/21 Rx Keppra (Levetiracetam) 1,000 Mg Tablet 1 Tab PO BID 30 04/30/21 Rx Carvedilol (Carvedilol) 12.5 Mg Tablet 6.25 Mg PO BIDWMEALS 30 04/30/21 Rx [place] 5-325 Tablet (Acetaminophen/Hydrocodone Bitart) 1 Each Tablet 1-2 Each PO PRN Q6HRS PRN 01/04/19 Rx as needed for pain Symbicort 160-4.5 Mcg Inhaler (Budesonide/Formoterol Fumarate) 10.2 Gm Hfa.aer.ad 2 Puff IH BID 09/22/18 Rx Montelukast Sodium Tablet (Montelukast Sodium) 10 Mg Tablet 10 Mg PO QHS 30 06/15/17 Rx Albuterol Sulfate Neb Soln (Albuterol Sulfate) 2.5 Mg/3 Ml Vial.neb 2.5 Mg NEB PRN QID 30 06/15/17 Rx Fluoxetine Hcl 40 Mg Capsule 1 Cap PO DAILYWBKFT 06/11/17 Rx Zofran Odt (Ondansetron) 4 Mg Tab.rapdis 1 Tab SL Q8HRS 06/03/17 Rx Impression . 1. Acute on chronic hypoxic and hypercapnic respiratory failure secondary to multifactorial etiologies including acute exacerbation of chronic obstructive pulmonary disease, right lung pneumonia and prior history of COVID-19 viral pneumonia with some residual parenchymal abnormalities.. 2. Acute exacerbation of chronic obstructive pulmonary disease. 3. Suspected obstructive sleep apnea, overlapping with obesity hypoventilation syndrome. 4. Abnormal chest x-ray consistent with pneumonia. Plan . 1. Discussed with RN and the patient. I have explained to her the importance of using BiPAP every night.. We will continue present oxygen and gradually wean to keep saturation 92% and above. Avoid hyperoxia. I have encouraged the patient to use BiPAP at least 4 to 6 hours a night.. She agrees. 2. Continue Rocephin and doxycycline. 3. Continue bronchodilators with Pulmicort and DuoNebs. 4. IV Solu-Medrol. 5. Physical therapy. 6. We will follow along with you. 7. She will benefit from outpatient sleep study. THOMAS HAZEL MD September 21, 2021 11:34
--- NOTE | 2021-09-21 13:13 | PDOC ---
[employer] PROGRESS NOTE Date of Service DOS: DATE: 09/21/21 TIME: 13:09 Chief Complaint Chief Complaint Acute respiratory failure with hypoxia - with pneumonia. Will wean O2 as tolerated Right lower lobe pneumonia - with complicated pulmonary history likely gram negative, doxycycline and rocephin IV Dry gangrene - of 7 toes. Planned amputation on 09/19 per patient. Will inform vascular surgery of inpatient status for respiratory failure, likely delay surgery Asthma with COPD, acute bronchitis - will treat with steroids, aggressive nebulizers, consult pulmonology. May need DEALMAKER eval Acute diastolic CHF - clinically. change to toprol from coreg, diurese with lasix High Cholesterol - statin Hypertension - cont BB Seizure history - was on keppra previously Smoker - still smokes, counseled on cessation H/o amphetamine abuse - states in remission OCD, bipolar, PTSD, anxiety - does not know her medications, will given prn genoveva zepam DM2 - sliding scale Headache FEN - ADA diet PPX - lovenox FULL CODE Dispo - inpatient History of Present Illness History of Present Illness Ms Pedersen is a 51yo female with PMHx Hypertension, hyperlipidemia, OCD, bipolar, PTSD, anxiety, chronic back pain, smoker, amphetamine use disorder, COPD on home O2, smoker, DM2 who comes to ED via EMS from home c/o worsening shortness of breath and 20 pound weight gain in the past 2 weeks. She was hypoxic to 70% on arrival, placed on 5L/min NCO2 with improvement in saturations to 90%, given duonebs. She c/o a "frog in my throat" and notes significant abdominal swelling for the past week. She has planned vascular surgery on 09/19/2021 for multiple to amputations for dry gangrene. She has orthopnea, FOX. She c/o anxiety as well in ED. She has been prescribed home O2 since a complicated stay 04/07/2022-04/30/2021 for COVID 19 requiring tracheostomy and PEG placement, both of which have since been reversed. CXR in ED with right lower lobe consolidation. NT-proBNP > 6000. Given lasix, antibiotics, O2 and admitted for further care. 09/18: Potassium 3.3 still hypoxic has good urine output after IV Lasix. Here she is complaining of bilateral foot pain days now is now better and a headache today. Productive cough and with some wheezing. PCO2 93 on ABG placed on BiPAP 09/19: Magnesium 1.5 replaced IV did not tolerate BiPAP well mostly due to anxiety she said it actually made her breathing more comfortable. This morning she is a little restless discussed with RT and nursing staff to lower her oxygen goal O2 saturations between 88 and 92% to avoid hypoxemia. Still continue antibiotics for right lower lobe pneumonia. Discussed with vascular surgery to delay surgery for now given her respiratory status. 09/20: Wore BiPAP for little bit overnight. She is having some anxiety right now. Discussed need for outpatient sleep study she is asking when she can get no more comfortable position and go home. Discussed with pulmonology. 09/21: Did not wear BiPAP last night little more anxious today. Asking if she can get a hold of her mom and she just says she is lonely. Wheezing is improved very little. Still coughing up mucus O2 saturations 91% on 2 L/min. Would like to maintain O2 saturations at this point. Given improvement in wheezing to restart her carvedilol and will add BuSpar and restart her fluoxetine now that she is more alert but anxious. Vitals/I&O Vitals/I&O: Vital Signs Date Time Temp Pulse Resp B/P (MAP) Pulse Ox O2 Delivery O2 Flow Rate FiO2 09/21/21 11:21 95 Nasal Cannula 2.0 09/21/21 11:00 97.4 90 22 130/60 (83) 97.4 I & O 09/20/21 09/20/21 09/21/21 15:00 23:00 07:00 Intake Total 760 ml 540 ml 700 ml Output Total 350 ml 100 ml 200 ml Balance 410 ml 440 ml 500 ml Physical Exam General: Alert, Oriented X3, Cooperative, No acute distress Heart: Regular rate Lungs: Other (Few anterior rhonchi.) Abdomen: Normal bowel sounds, Soft, Other (Fluid wave) Extremities: Other (She has dry gangrene to her right second, fourth, fifth toes at the tips, left third through fifth toes and both heels. There is no surrounding erythema to the heels, there is minimal erythema to the right toes evidence of demarcation. No drainage or wet gangrene. She has palpable DP Pulses bilaterally. Mild pedal edema. ) Skin: Other (Toe necrosis 7/10) Labs Labs: Laboratory Tests Test 09/20/21 16:59 09/20/21 20:48 09/21/21 03:45 09/21/21 07:44 Glucose (Fingerstick) 274 mg/dL (70-99) 340 mg/dL (70-99) 217 mg/dL (70-99) White Blood Count 14.1 x10^3/uL (4.0-11.0) Red Blood Count 4.62 x10^6/uL (3.50-5.40) Hemoglobin 12.3 g/dL (12.0-15.5) Hematocrit 39.5 % (36.0-47.0) Mean Corpuscular Volume 86 fL (79-100) Mean Corpuscular Hemoglobin 27 pg (25-35) Mean Corpuscular Hemoglobin Concent 31 g/dL (31-37) Red Cell Distribution Width 18.8 % (11.5-14.5) Platelet Count 382 x10^3/uL (140-400) Neutrophils (%) (Auto) 89 % (31-73) Lymphocytes (%) (Auto) 6 % (24-48) Monocytes (%) (Auto) 6 % (0-9) Eosinophils (%) (Auto) 0 % (0-3) Basophils (%) (Auto) 0 % (0-3) Neutrophils # (Auto) 12.5 x10^3/uL (1.8-7.7) Lymphocytes # (Auto) 0.8 x10^3/uL (1.0-4.8) Monocytes # (Auto) 0.8 x10^3/uL (0.0-1.1) Eosinophils # (Auto) 0.0 x10^3/uL (0.0-0.7) Basophils # (Auto) 0.0 x10^3/uL (0.0-0.2) Segmented Neutrophils % 78 % (35-66) Band Neutrophils % 2 % (0-9) Lymphocytes % 13 % (24-48) Monocytes % 7 % (0-10) Platelet Estimate Adequate (ADEQUATE) Sodium Level 133 mmol/L (136-145) Potassium Level 4.9 mmol/L (3.5-5.1) Chloride Level 91 mmol/L (98-107) Carbon Dioxide Level 38 mmol/L (21-32) Anion Gap 4 (6-14) Blood Urea Nitrogen 26 mg/dL (7-20) Creatinine 0.7 mg/dL (0.6-1.0) Estimated GFR (Cockcroft-Gault) 87.5 Glucose Level 283 mg/dL (70-99) Calcium Level 9.0 mg/dL (8.5-10.1) Test 09/21/21 12:28 Glucose (Fingerstick) 276 mg/dL (70-99) Assessment and Plan Assessmemt and Plan Problems Medical Problems: (1) Abdominal pain Status: Acute (2) CHF (congestive heart failure) Status: Acute (3) Hypoxia Status: Acute (4) Pneumonia Status: Acute (5) Serum ammonia increased Status: Acute Comment Review of Relevant I have reviewed the following items shiraz (where applicable) has been applied. Medications: Current Medications Medications (Trade) Dose Ordered Sig/Roberto Route PRN Reason Start Time Stop Time Status Last Admin Dose Admin Insulin Glargine (Lantus Syringe) 18 unit QHS SQ 09/20/21 21:00 09/20/21 20:51 Hydralazine HCl (Apresoline Inj) 10 mg PRN Q4HRS PRN IVP ELEVATED BP, SEE COMMENTS 09/20/21 16:45 09/20/21 23:20 Justifications for Admission Other Justification HAM WELLS MD September 21, 2021 13:13
[2021-09-21 15:00] VITALS: BP 174/111
[2021-09-21] MEDS: busPIRone 10 MG TABLET. PO SCH ×2 (15:05→20:16)
[2021-09-21] MEDS: traMADol 50 MG TABLET PO PRN (15:05)
[2021-09-21] MEDS: PANTOPRAZOLE 40 MG TABLET.DR. PO SCH (15:05)
[2021-09-21] MEDS: FLUoxetine HCL 20 MG CAPSULE PO SCH (15:06)
[2021-09-21] MEDS: CARVEDILOL 6.25 MG TABLET. PO SCH (16:45)
[2021-09-21] MEDS: cefTRIAXone IV Push 1 GM VIAL. IVP SCH (16:47)
[2021-09-21 19:55] VITALS: BP 165/112
[2021-09-21] MEDS: LORazepam 0.5 MG TABLET PO PRN (20:16)
[2021-09-21] MEDS: MONTELUKAST SODIUM 10 MG TABLET. PO SCH (20:16)
[2021-09-21] MEDS: INSULIN GLARGINE SYRINGE. SQ SCH (21:00)
[2021-09-21 22:43] VITALS: BP 152/97
--- NOTE | 2021-09-22 02:30 | NUR ---
PT STATES SHE CANT WEAR HER BIPAP ANY LONGER. WOULD FREQUENTLY FIND PT OFF BIPAP AND SAYING SHE CANT BREATHE SHE HELD MASK IN HER HAND. WENT OVER THE NEED FOR HER TO KEEP IT ON. SHE AGREED. THEN SAME PROCESS STARTED. PLACED ON 3 LITERS LCRN
[2021-09-22 03:15] VITALS: BP 159/110
[2021-09-22] MEDS: ACETAMINOPHEN 325 MG TABLET. PO PRN (03:22)
[2021-09-22] MEDS: hydrALAZINE 20 MG/ML VIAL. IVP PRN ×3 (04:06→20:51)
[2021-09-22] MEDS: methylPREDNISolone SOD SUCC PF 40 MG/ML VIAL. IV SCH ×3 (06:24→20:24)
[2021-09-22 07:00] VITALS: BP 181/120
--- NOTE | 2021-09-22 07:11 | PDOC ---
[facility] [facility] PROGRESS NOTE Date of Service DOS: DATE: 09/22/21 TIME: 07:11 Chief Complaint Chief Complaint Acute respiratory failure with hypoxia - with pneumonia. Will wean O2 as tolerated Right lower lobe pneumonia - with complicated pulmonary history likely gram negative, doxycycline and rocephin IV Dry gangrene - of 7 toes. Planned amputation on 09/19 per patient. Will inform vascular surgery of inpatient status for respiratory failure, likely delay surgery Asthma with COPD, acute bronchitis - will treat with steroids, aggressive nebulizers, consult pulmonology. 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 change to toprol from coreg, diurese with lasix High Cholesterol - statin Hypertension - cont BB Seizure history - was on keppra previously Smoker - still smokes, counseled on cessation H/o amphetamine abuse - states in remission OCD, bipolar, PTSD, anxiety - does not know her medications, will given prn genoveva zepam DM2 - sliding scale Headache FEN - ADA diet PPX - lovenox FULL CODE Dispo - inpatient History of Present Illness History of Present Illness Ms Pedersen is a 51yo female with PMHx Hypertension, hyperlipidemia, OCD, bipolar, PTSD, anxiety, chronic back pain, smoker, amphetamine use disorder, COPD on home O2, smoker, DM2 who comes to ED via EMS from home c/o worsening shortness of breath and 20 pound weight gain in the past 2 weeks. She was hypoxic to 70% on arrival, placed on 5L/min NCO2 with improvement in saturations to 90%, given duonebs. She c/o a "frog in my throat" and notes significant abdominal swelling for the past week. She has planned vascular surgery on 09/19/2021 for multiple to amputations for dry gangrene. She has orthopnea, FOX. She c/o anxiety as well in ED. She has been prescribed home O2 since a complicated stay 04/07/2022-04/30/2021 for COVID 19 requiring tracheostomy and PEG placement, both of which have since been reversed. CXR in ED with right lower lobe consolidation. NT-proBNP > 6000. Given lasix, antibiotics, O2 and admitted for further care. 09/18: Potassium 3.3 still hypoxic has good urine output after IV Lasix. Here she is complaining of bilateral foot pain days now is now better and a headache today. Productive cough and with some wheezing. PCO2 93 on ABG placed on BiPAP 09/19: Magnesium 1.5 replaced IV did not tolerate BiPAP well mostly due to anxiety she said it actually made her breathing more comfortable. This morning she is a little restless discussed with RT and nursing staff to lower her oxygen goal O2 saturations between 88 and 92% to avoid hypoxemia. Still continue antibiotics for right lower lobe pneumonia. Discussed with vascular surgery to delay surgery for now given her respiratory status. 09/20: Wore BiPAP for little bit overnight. She is having some anxiety right now. Discussed need for outpatient sleep study she is asking when she can get no more comfortable position and go home. Discussed with pulmonology. 09/21: Did not wear BiPAP last night little more anxious today. Asking if she can get a hold of her mom and she just says she is lonely. Wheezing is improved very little. Still coughing up mucus O2 saturations 91% on 2 L/min. Would like to maintain O2 saturations at this point. Given improvement in wheezing to restart her carvedilol and will add BuSpar and restart her fluoxetine now that she is more alert but anxious. 09/22: Little more drowsy today did not wear BiPAP all night last night but did wear it for a few hours. ABG pending. Glucose been in the 200s adjusted insulin accordingly. Labs for tomorrow morning. Anxiety was a little better with addition of BuSpar Vitals/I&O Vitals/I&O: Vital Signs Date Time Temp Pulse Resp B/P (MAP) Pulse Ox O2 Delivery O2 Flow Rate FiO2 09/22/21 04:06 103 159/110 09/22/21 03:15 97.8 24 95 Nasal Cannula 3.0 97.8 I & O 09/21/21 09/21/21 09/22/21 15:00 23:00 07:00 Intake Total 200 ml 50 ml 200 ml Output Total 150 ml 200 ml 300 ml Balance 50 ml -150 ml -100 ml Physical Exam General: Alert, Oriented X3, Cooperative, No acute distress Heart: Regular rate Lungs: Other (Few anterior rhonchi.) Abdomen: Normal bowel sounds, Soft, Other (Fluid wave) Extremities: Other (She has dry gangrene to her right second, fourth, fifth toes at the tips, left third through fifth toes and both heels. There is no surrounding erythema to the heels, there is minimal erythema to the right toes evidence of demarcation. No drainage or wet gangrene. She has palpable DP Pulses bilaterally. Mild pedal edema. ) Skin: Other (Toe necrosis 11/02) Labs Labs: Laboratory Tests Test 09/21/21 07:44 09/21/21 12:28 09/21/21 16:23 09/21/21 20:46 Glucose (Fingerstick) 217 mg/dL (70-99) 276 mg/dL (70-99) 285 mg/dL (70-99) 265 mg/dL (70-99) Assessment and Plan Assessmemt and Plan Problems Medical Problems: (1) Abdominal pain Status: Acute (2) CHF (congestive heart failure) Status: Acute (3) Hypoxia Status: Acute (4) Pneumonia Status: Acute (5) Serum ammonia increased Status: Acute Comment Review of Relevant I have reviewed the following items shiraz (where applicable) has been applied. Medications: Current Medications Medications (Trade) Dose Ordered Sig/Roberto Route PRN Reason Start Time Stop Time Status Last Admin Dose Admin Carvedilol (Coreg) 6.25 mg BIDWMEALS PO 09/21/21 17:00 09/21/21 16:45 Pantoprazole Sodium (Protonix) 40 mg DAILYAC PO 09/21/21 14:00 09/21/21 15:05 Fluoxetine HCl (PROzac) 40 mg DAILY PO 09/21/21 14:00 09/21/21 15:06 Buspirone HCl (Buspar) 10 mg TID PO 09/21/21 14:00 09/21/21 20:16 Lorazepam (Ativan) 0.5 mg PRN Q8HRS PRN PO ANXIETY / AGITATION 09/21/21 13:15 09/21/21 20:16 Justifications for Admission Other Justification HAM WELLS MD September 22, 2021 07:11
[2021-09-22] MEDS: IPRATRPIUM/ALBUTEROL 0.5/2.5MG 3 ML NEBU. NEB SCH ×4 (07:32→19:48)
[2021-09-22] MEDS: BUDESONIDE 0.5 MG/2 ML NEBU. NEB SCH ×3 (08:00→19:49)
[2021-09-22] MEDS: busPIRone 10 MG TABLET. PO SCH ×3 (08:20→20:23)
[2021-09-22] MEDS: CARVEDILOL 6.25 MG TABLET. PO SCH (08:21)
[2021-09-22] MEDS: LACTOBACILLUS RHAMNOSUS GG 1 CAPSULE. PO SCH ×2 (08:21→20:23)
[2021-09-22] MEDS: NYSTATIN TOPICAL POWDER 15GM BOTTLE. TP SCH ×2 (08:22→20:26)
[2021-09-22] MEDS: ENOXAPARIN 40 MG/0.4 ML SYRINGE. SQ SCH (08:22)
[2021-09-22] MEDS: FLUoxetine HCL 20 MG CAPSULE PO SCH (08:22)
[2021-09-22] MEDS: INSULIN LISPRO 300 UNITS/3 ML VIAL. SQ SCH ×7 (08:23→20:45)
[2021-09-22] MEDS: PANTOPRAZOLE 40 MG TABLET.DR. PO SCH (08:24)
[2021-09-22] MEDS: DOXYCYCLINE HYCLATE 100 MG in IV DEXTROSE 5% 100ML 100 ML IV SCH ×2 (08:25→20:43)
--- NOTE | 2021-09-22 09:39 | PDOC ---
PULMONARY PROGRESS NOTES DATE: 09/22/21 TIME: 09:38 Subjective Patient appears weak and lethargic. She states she did use the BiPAP for 4 hours last night Vitals Vital Signs Date Time Temp Pulse Resp B/P (MAP) Pulse Ox O2 Delivery O2 Flow Rate FiO2 09/22/21 08:29 103 181/120 09/22/21 08:00 Nasal Cannula 3.0 09/22/21 07:34 95 09/22/21 07:00 97.8 22 97.8 General: Alert, No acute distress HEENT: Other Lungs: Other (Few anterior rhonchi.) Cardiovascular: S1, S2 Abdomen: Soft, Non-tender Extremities: No Edema Skin: Warm Labs Laboratory Tests Test 09/20/21 11:52 09/20/21 12:13 09/20/21 16:59 09/20/21 20:48 Glucose (Fingerstick) 294 mg/dL (70-99) 244 mg/dL (70-99) 274 mg/dL (70-99) 340 mg/dL (70-99) Test 09/21/21 03:45 09/21/21 07:44 09/21/21 12:28 09/21/21 16:23 White Blood Count 14.1 x10^3/uL (4.0-11.0) Red Blood Count 4.62 x10^6/uL (3.50-5.40) Hemoglobin 12.3 g/dL (12.0-15.5) Hematocrit 39.5 % (36.0-47.0) Mean Corpuscular Volume 86 fL (79-100) Mean Corpuscular Hemoglobin 27 pg (25-35) Mean Corpuscular Hemoglobin Concent 31 g/dL (31-37) Red Cell Distribution Width 18.8 % (11.5-14.5) Platelet Count 382 x10^3/uL (140-400) Neutrophils (%) (Auto) 89 % (31-73) Lymphocytes (%) (Auto) 6 % (24-48) Monocytes (%) (Auto) 6 % (0-9) Eosinophils (%) (Auto) 0 % (0-3) Basophils (%) (Auto) 0 % (0-3) Neutrophils # (Auto) 12.5 x10^3/uL (1.8-7.7) Lymphocytes # (Auto) 0.8 x10^3/uL (1.0-4.8) Monocytes # (Auto) 0.8 x10^3/uL (0.0-1.1) Eosinophils # (Auto) 0.0 x10^3/uL (0.0-0.7) Basophils # (Auto) 0.0 x10^3/uL (0.0-0.2) Segmented Neutrophils % 78 % (35-66) Band Neutrophils % 2 % (0-9) Lymphocytes % 13 % (24-48) Monocytes % 7 % (0-10) Platelet Estimate Adequate (ADEQUATE) Sodium Level 133 mmol/L (136-145) Potassium Level 4.9 mmol/L (3.5-5.1) Chloride Level 91 mmol/L (98-107) Carbon Dioxide Level 38 mmol/L (21-32) Anion Gap 4 (6-14) Blood Urea Nitrogen 26 mg/dL (7-20) Creatinine 0.7 mg/dL (0.6-1.0) Estimated GFR (Cockcroft-Gault) 87.5 Glucose Level 283 mg/dL (70-99) Calcium Level 9.0 mg/dL (8.5-10.1) Glucose (Fingerstick) 217 mg/dL (70-99) 276 mg/dL (70-99) 285 mg/dL (70-99) Test 09/21/21 20:46 09/22/21 07:47 Glucose (Fingerstick) 265 mg/dL (70-99) 252 mg/dL (70-99) Laboratory Tests Test 09/21/21 12:28 09/21/21 16:23 09/21/21 20:46 09/22/21 07:47 Glucose (Fingerstick) 276 mg/dL (70-99) 285 mg/dL (70-99) 265 mg/dL (70-99) 252 mg/dL (70-99) Medications Active Scripts Medications Dose Route/Sig Max Daily Dose Days Date Category Dose Instructions [Prednisone] 09/18/21 Reported [Undefined] Unknown Strength Unknown Dose 09/18/21 Reported Ibuprofen 800 Mg Tablet 800 Mg PO PRN Q6HRS PRN 09/18/21 Reported Prevacid (Lansoprazole) 30 Mg Tab.rap.dr 1 Tab PO DAILY 30 04/30/21 Rx Keppra (Levetiracetam) 1,000 Mg Tablet 1 Tab PO BID 30 04/30/21 Rx Carvedilol (Carvedilol) 12.5 Mg Tablet 6.25 Mg PO BIDWMEALS 30 04/30/21 Rx [place] 5-325 Tablet (Acetaminophen/Hydrocodone Bitart) 1 Each Tablet 1-2 Each PO PRN Q6HRS PRN 01/04/19 Rx as needed for pain Symbicort 160-4.5 Mcg Inhaler (Budesonide/Formoterol Fumarate) 10.2 Gm Hfa.aer.ad 2 Puff IH BID 09/22/18 Rx Montelukast Sodium Tablet (Montelukast Sodium) 10 Mg Tablet 10 Mg PO QHS 30 06/15/17 Rx Albuterol Sulfate Neb Soln (Albuterol Sulfate) 2.5 Mg/3 Ml Vial.neb 2.5 Mg NEB PRN QID 30 06/15/17 Rx Fluoxetine Hcl 40 Mg Capsule 1 Cap PO DAILYWBKFT 06/11/17 Rx Zofran Odt (Ondansetron) 4 Mg Tab.rapdis 1 Tab SL Q8HRS 06/03/17 Rx Impression . 1. Acute on chronic hypoxic and hypercapnic respiratory failure secondary to multifactorial etiologies including acute exacerbation of chronic obstructive pulmonary disease, right lung pneumonia and prior history of COVID-19 viral pneumonia with some residual parenchymal abnormalities.. 2. Acute exacerbation of chronic obstructive pulmonary disease. 3. Suspected obstructive sleep apnea, overlapping with obesity hypoventilation syndrome. 4. Abnormal chest x-ray consistent with pneumonia. Plan . 1. Discussed with RN and the patient. I have explained to her the importance of using BiPAP every night.. We will continue present oxygen and gradually wean to keep saturation 92% and above. Avoid hyperoxia. I have encouraged the patient to use BiPAP at least 4 to 6 hours a night.. She agrees. We will obtain ABGs today. 2. Continue Rocephin and doxycycline. 3. Continue bronchodilators with Pulmicort and DuoNebs. 4. IV Solu-Medrol. 5. Physical therapy. 6. We will follow along with you. 7. She will benefit from outpatient sleep study. 8. Will obtain ABGs today to rule out any worsening hypercapnia. Discussed with Dr. Altman. THOMAS HAZEL MD September 22, 2021 09:39
[2021-09-22 10:37] VITALS: BP 157/94
[2021-09-22 11:31] LABS: HCO3 ABG 45 mmol/L (21-28); PCO2 ABG 85 mmHg (35-46); PO2 ABG 60 mmHg (75-108)
[2021-09-22 11:32] LABS: BASE EXCESS ABG 15 mmol/L (-3-3); SAT O2 ABG 88 % (92-99)
--- NOTE | 2021-09-22 11:39 | NUR ---
MEDICATION NON-ADMINISTERED BUDESONIDE FROM THIS AM, NOT SCANNED BY RT.
[2021-09-22] MEDS: LORazepam 0.5 MG TABLET PO PRN ×2 (13:24→22:12)
[2021-09-22 15:00] VITALS: BP 182/115
[2021-09-22] MEDS: cefTRIAXone IV Push 1 GM VIAL. IVP SCH (17:05)
[2021-09-22] MEDS: CARVEDILOL 12.5 MG TABLET. PO SCH (17:06)
[2021-09-22 19:55] VITALS: BP 164/110
[2021-09-22] MEDS: MONTELUKAST SODIUM 10 MG TABLET. PO SCH (20:23)
[2021-09-22] MEDS: INSULIN GLARGINE SYRINGE. SQ SCH (20:42)
[2021-09-22 23:00] VITALS: BP 141/90
[2021-09-23 03:17] VITALS: BP 141/93
[2021-09-23 05:56] LABS: CALCIUM 9.1 mg/dL (8.5-10.1); CREATININE 0.6 mg/dL (0.6-1.0); GFR 104.6
[2021-09-23 05:58] LABS: POTASSIUM 5.3 mmol/L (3.5-5.1)
[2021-09-23 06:05] LABS: BASO % 0 % (0-3); EOS % 0 % (0-3); HEMATOCRIT 38.5 % (36.0-47.0); LYMPH # 0.4 x10^3/uL (1.0-4.8); LYMPH % 4 % (24-48); MEAN CORPUSCULAR HEMOGLOBIN 27 pg (25-35); MEAN CORPUSCULAR HGB CONC 31 g/dL (31-37); MEAN CORPUSCULAR VOLUME 85 fL (79-100); MONO # 0.5 x10^3/uL (0.0-1.1); MONO % 5 % (0-9); NEUT # 8.7 x10^3/uL (1.8-7.7); NEUT % 90 % (31-73); PLATELET COUNT 303 x10^3/uL (140-400); RED BLOOD COUNT 4.52 x10^6/uL (3.50-5.40); RED CELL DISTRIBUTION WIDTH 18.4 % (11.5-14.5); WHITE BLOOD COUNT 9.6 x10^3/uL (4.0-11.0)
[2021-09-23] MEDS: PANTOPRAZOLE 40 MG TABLET.DR. PO SCH (06:08)
[2021-09-23] MEDS: methylPREDNISolone SOD SUCC PF 40 MG/ML VIAL. IV SCH (06:08)
[2021-09-23 07:00] VITALS: BP 168/93
[2021-09-23] MEDS: IPRATRPIUM/ALBUTEROL 0.5/2.5MG 3 ML NEBU. NEB SCH ×4 (07:44→21:27)
[2021-09-23] MEDS: BUDESONIDE 0.5 MG/2 ML NEBU. NEB SCH (07:44)
[2021-09-23] MEDS: INSULIN LISPRO 300 UNITS/3 ML VIAL. SQ SCH ×7 (08:20→20:39)
[2021-09-23] MEDS: FLUoxetine HCL 20 MG CAPSULE PO SCH (08:22)
[2021-09-23] MEDS: LACTOBACILLUS RHAMNOSUS GG 1 CAPSULE. PO SCH ×2 (08:22→20:37)
[2021-09-23] MEDS: busPIRone 10 MG TABLET. PO SCH ×3 (08:22→20:37)
[2021-09-23] MEDS: ENOXAPARIN 40 MG/0.4 ML SYRINGE. SQ SCH (08:23)
[2021-09-23] MEDS: LORazepam 0.5 MG TABLET PO PRN (08:23)
[2021-09-23] MEDS: CARVEDILOL 12.5 MG TABLET. PO SCH ×2 (08:23→17:17)
[2021-09-23] MEDS: DOXYCYCLINE HYCLATE 100 MG in IV DEXTROSE 5% 100ML 100 ML IV SCH (08:25)
[2021-09-23] MEDS: NYSTATIN TOPICAL POWDER 15GM BOTTLE. TP SCH ×2 (08:25→20:39)
--- NOTE | 2021-09-23 09:34 | PDOC ---
PULMONARY PROGRESS NOTES DATE: 09/23/21 TIME: 09:34 Subjective Patient appears weak and lethargic. She states she did use the BiPAP for 4 hours last night Vitals Vital Signs Date Time Temp Pulse Resp B/P (MAP) Pulse Ox O2 Delivery O2 Flow Rate FiO2 09/23/21 08:23 97 141/93 09/23/21 08:00 Nasal Cannula 3.0 09/23/21 07:48 99 09/23/21 07:00 97.7 20 97.7 General: Alert, No acute distress HEENT: Other Lungs: Other (Few anterior rhonchi.) Cardiovascular: S1, S2 Abdomen: Soft, Non-tender Extremities: No Edema Skin: Warm Labs Laboratory Tests Test 09/21/21 12:28 09/21/21 16:23 09/21/21 20:46 09/22/21 07:47 Glucose (Fingerstick) 276 mg/dL (70-99) 285 mg/dL (70-99) 265 mg/dL (70-99) 252 mg/dL (70-99) Test 09/22/21 10:25 09/22/21 11:07 09/22/21 16:54 09/22/21 20:25 O2 Saturation 88 % (92-99) Arterial Blood pH 7.34 (7.35-7.45) Arterial Blood pCO2 at Patient Temp 85 mmHg (35-46) Arterial Blood pO2 at Patient Temp 60 mmHg (75-108) Arterial Blood HCO3 45 mmol/L (21-28) Arterial Blood Base Excess 15 mmol/L (-3-3) FiO2 3 lpm nc Glucose (Fingerstick) 310 mg/dL (70-99) 399 mg/dL (70-99) 342 mg/dL (70-99) Test 09/23/21 05:05 09/23/21 07:43 White Blood Count 9.6 x10^3/uL (4.0-11.0) Red Blood Count 4.52 x10^6/uL (3.50-5.40) Hemoglobin 12.0 g/dL (12.0-15.5) Hematocrit 38.5 % (36.0-47.0) Mean Corpuscular Volume 85 fL (79-100) Mean Corpuscular Hemoglobin 27 pg (25-35) Mean Corpuscular Hemoglobin Concent 31 g/dL (31-37) Red Cell Distribution Width 18.4 % (11.5-14.5) Platelet Count 303 x10^3/uL (140-400) Neutrophils (%) (Auto) 90 % (31-73) Lymphocytes (%) (Auto) 4 % (24-48) Monocytes (%) (Auto) 5 % (0-9) Eosinophils (%) (Auto) 0 % (0-3) Basophils (%) (Auto) 0 % (0-3) Neutrophils # (Auto) 8.7 x10^3/uL (1.8-7.7) Lymphocytes # (Auto) 0.4 x10^3/uL (1.0-4.8) Monocytes # (Auto) 0.5 x10^3/uL (0.0-1.1) Eosinophils # (Auto) 0.0 x10^3/uL (0.0-0.7) Basophils # (Auto) 0.0 x10^3/uL (0.0-0.2) Sodium Level 132 mmol/L (136-145) Potassium Level 5.3 mmol/L (3.5-5.1) Chloride Level 90 mmol/L (98-107) Carbon Dioxide Level 37 mmol/L (21-32) Anion Gap 5 (6-14) Blood Urea Nitrogen 28 mg/dL (7-20) Creatinine 0.6 mg/dL (0.6-1.0) Estimated GFR (Cockcroft-Gault) 104.6 Glucose Level 284 mg/dL (70-99) Calcium Level 9.1 mg/dL (8.5-10.1) Glucose (Fingerstick) 268 mg/dL (70-99) Laboratory Tests Test 09/22/21 10:25 09/22/21 11:07 09/22/21 16:54 09/22/21 20:25 O2 Saturation 88 % (92-99) Arterial Blood pH 7.34 (7.35-7.45) Arterial Blood pCO2 at Patient Temp 85 mmHg (35-46) Arterial Blood pO2 at Patient Temp 60 mmHg (75-108) Arterial Blood HCO3 45 mmol/L (21-28) Arterial Blood Base Excess 15 mmol/L (-3-3) FiO2 3 lpm nc Glucose (Fingerstick) 310 mg/dL (70-99) 399 mg/dL (70-99) 342 mg/dL (70-99) Test 09/23/21 05:05 09/23/21 07:43 White Blood Count 9.6 x10^3/uL (4.0-11.0) Red Blood Count 4.52 x10^6/uL (3.50-5.40) Hemoglobin 12.0 g/dL (12.0-15.5) Hematocrit 38.5 % (36.0-47.0) Mean Corpuscular Volume 85 fL (79-100) Mean Corpuscular Hemoglobin 27 pg (25-35) Mean Corpuscular Hemoglobin Concent 31 g/dL (31-37) Red Cell Distribution Width 18.4 % (11.5-14.5) Platelet Count 303 x10^3/uL (140-400) Neutrophils (%) (Auto) 90 % (31-73) Lymphocytes (%) (Auto) 4 % (24-48) Monocytes (%) (Auto) 5 % (0-9) Eosinophils (%) (Auto) 0 % (0-3) Basophils (%) (Auto) 0 % (0-3) Neutrophils # (Auto) 8.7 x10^3/uL (1.8-7.7) Lymphocytes # (Auto) 0.4 x10^3/uL (1.0-4.8) Monocytes # (Auto) 0.5 x10^3/uL (0.0-1.1) Eosinophils # (Auto) 0.0 x10^3/uL (0.0-0.7) Basophils # (Auto) 0.0 x10^3/uL (0.0-0.2) Sodium Level 132 mmol/L (136-145) Potassium Level 5.3 mmol/L (3.5-5.1) Chloride Level 90 mmol/L (98-107) Carbon Dioxide Level 37 mmol/L (21-32) Anion Gap 5 (6-14) Blood Urea Nitrogen 28 mg/dL (7-20) Creatinine 0.6 mg/dL (0.6-1.0) Estimated GFR (Cockcroft-Gault) 104.6 Glucose Level 284 mg/dL (70-99) Calcium Level 9.1 mg/dL (8.5-10.1) Glucose (Fingerstick) 268 mg/dL (70-99) Medications Active Scripts Medications Dose Route/Sig Max Daily Dose Days Date Category Dose Instructions [Prednisone] 09/18/21 Reported [Undefined] Unknown Strength Unknown Dose 09/18/21 Reported Ibuprofen 800 Mg Tablet 800 Mg PO PRN Q6HRS PRN 09/18/21 Reported Prevacid (Lansoprazole) 30 Mg Tab.rap.dr 1 Tab PO DAILY 30 04/30/21 Rx Keppra (Levetiracetam) 1,000 Mg Tablet 1 Tab PO BID 30 04/30/21 Rx Carvedilol (Carvedilol) 12.5 Mg Tablet 6.25 Mg PO BIDWMEALS 30 04/30/21 Rx [place] 5-325 Tablet (Acetaminophen/Hydrocodone Bitart) 1 Each Tablet 1-2 Each PO PRN Q6HRS PRN 01/04/19 Rx as needed for pain Symbicort 160-4.5 Mcg Inhaler (Budesonide/Formoterol Fumarate) 10.2 Gm Hfa.aer.ad 2 Puff IH BID 09/22/18 Rx Montelukast Sodium Tablet (Montelukast Sodium) 10 Mg Tablet 10 Mg PO QHS 30 06/15/17 Rx Albuterol Sulfate Neb Soln (Albuterol Sulfate) 2.5 Mg/3 Ml Vial.neb 2.5 Mg NEB PRN QID 30 06/15/17 Rx Fluoxetine Hcl 40 Mg Capsule 1 Cap PO DAILYWBKFT 06/11/17 Rx Zofran Odt (Ondansetron) 4 Mg Tab.rapdis 1 Tab SL Q8HRS 06/03/17 Rx Impression . 1. Acute on chronic hypoxic and hypercapnic respiratory failure secondary to multifactorial etiologies including acute exacerbation of chronic obstructive pulmonary disease, right lung pneumonia and prior history of COVID-19 viral pneumonia with some residual parenchymal abnormalities.. 2. Acute exacerbation of chronic obstructive pulmonary disease. 3. Suspected obstructive sleep apnea, overlapping with obesity hypoventilation syndrome. 4. Abnormal chest x-ray consistent with pneumonia. Plan . 1. Discussed with RN and the patient. I have explained to her the importance of using BiPAP every night.. We will continue present oxygen and gradually wean to keep saturation 92% and above. Avoid hyperoxia. I have encouraged the patient to use BiPAP at least 4 to 6 hours a night.. She agrees. We will obtain ABGs today. 2. Continue Rocephin and doxycycline. 3. Continue bronchodilators with Pulmicort and DuoNebs. 4. IV Solu-Medrol. 5. Physical therapy. 6. We will follow along with you. 7. She will benefit from outpatient sleep study. 8. Will obtain ABGs today to rule out any worsening hypercapnia. Discussed with Dr. Altman. VIRGILIO HAMMOND MD September 23, 2021 09:34
--- NOTE | 2021-09-23 09:34 | PDOC ---
PULMONARY PROGRESS NOTES DATE: 09/23/21 TIME: 09:34 Subjective Patient sitting up in a chair, wants to go back to bed Wore BiPAP last night Has been on oxygen since March 2021 Was smoking up until this particular admission Vitals Vital Signs Date Time Temp Pulse Resp B/P (MAP) Pulse Ox O2 Delivery O2 Flow Rate FiO2 09/23/21 08:23 97 141/93 09/23/21 08:00 Nasal Cannula 3.0 09/23/21 07:48 99 09/23/21 07:00 97.7 20 97.7 ROS: No Nausea, No Chest Pain, No Abdominal Pain, No Increase Cough General: Alert, No acute distress HEENT: Other Lungs: Other (Few anterior rhonchi.) Cardiovascular: S1, S2 Abdomen: Soft, Non-tender Extremities: No Edema Skin: Warm Labs Laboratory Tests Test 09/21/21 12:28 09/21/21 16:23 09/21/21 20:46 09/22/21 07:47 Glucose (Fingerstick) 276 mg/dL (70-99) 285 mg/dL (70-99) 265 mg/dL (70-99) 252 mg/dL (70-99) Test 09/22/21 10:25 09/22/21 11:07 09/22/21 16:54 09/22/21 20:25 O2 Saturation 88 % (92-99) Arterial Blood pH 7.34 (7.35-7.45) Arterial Blood pCO2 at Patient Temp 85 mmHg (35-46) Arterial Blood pO2 at Patient Temp 60 mmHg (75-108) Arterial Blood HCO3 45 mmol/L (21-28) Arterial Blood Base Excess 15 mmol/L (-3-3) FiO2 3 lpm nc Glucose (Fingerstick) 310 mg/dL (70-99) 399 mg/dL (70-99) 342 mg/dL (70-99) Test 09/23/21 05:05 09/23/21 07:43 White Blood Count 9.6 x10^3/uL (4.0-11.0) Red Blood Count 4.52 x10^6/uL (3.50-5.40) Hemoglobin 12.0 g/dL (12.0-15.5) Hematocrit 38.5 % (36.0-47.0) Mean Corpuscular Volume 85 fL (79-100) Mean Corpuscular Hemoglobin 27 pg (25-35) Mean Corpuscular Hemoglobin Concent 31 g/dL (31-37) Red Cell Distribution Width 18.4 % (11.5-14.5) Platelet Count 303 x10^3/uL (140-400) Neutrophils (%) (Auto) 90 % (31-73) Lymphocytes (%) (Auto) 4 % (24-48) Monocytes (%) (Auto) 5 % (0-9) Eosinophils (%) (Auto) 0 % (0-3) Basophils (%) (Auto) 0 % (0-3) Neutrophils # (Auto) 8.7 x10^3/uL (1.8-7.7) Lymphocytes # (Auto) 0.4 x10^3/uL (1.0-4.8) Monocytes # (Auto) 0.5 x10^3/uL (0.0-1.1) Eosinophils # (Auto) 0.0 x10^3/uL (0.0-0.7) Basophils # (Auto) 0.0 x10^3/uL (0.0-0.2) Sodium Level 132 mmol/L (136-145) Potassium Level 5.3 mmol/L (3.5-5.1) Chloride Level 90 mmol/L (98-107) Carbon Dioxide Level 37 mmol/L (21-32) Anion Gap 5 (6-14) Blood Urea Nitrogen 28 mg/dL (7-20) Creatinine 0.6 mg/dL (0.6-1.0) Estimated GFR (Cockcroft-Gault) 104.6 Glucose Level 284 mg/dL (70-99) Calcium Level 9.1 mg/dL (8.5-10.1) Glucose (Fingerstick) 268 mg/dL (70-99) Laboratory Tests Test 09/22/21 10:25 09/22/21 11:07 09/22/21 16:54 09/22/21 20:25 O2 Saturation 88 % (92-99) Arterial Blood pH 7.34 (7.35-7.45) Arterial Blood pCO2 at Patient Temp 85 mmHg (35-46) Arterial Blood pO2 at Patient Temp 60 mmHg (75-108) Arterial Blood HCO3 45 mmol/L (21-28) Arterial Blood Base Excess 15 mmol/L (-3-3) FiO2 3 lpm nc Glucose (Fingerstick) 310 mg/dL (70-99) 399 mg/dL (70-99) 342 mg/dL (70-99) Test 09/23/21 05:05 09/23/21 07:43 White Blood Count 9.6 x10^3/uL (4.0-11.0) Red Blood Count 4.52 x10^6/uL (3.50-5.40) Hemoglobin 12.0 g/dL (12.0-15.5) Hematocrit 38.5 % (36.0-47.0) Mean Corpuscular Volume 85 fL (79-100) Mean Corpuscular Hemoglobin 27 pg (25-35) Mean Corpuscular Hemoglobin Concent 31 g/dL (31-37) Red Cell Distribution Width 18.4 % (11.5-14.5) Platelet Count 303 x10^3/uL (140-400) Neutrophils (%) (Auto) 90 % (31-73) Lymphocytes (%) (Auto) 4 % (24-48) Monocytes (%) (Auto) 5 % (0-9) Eosinophils (%) (Auto) 0 % (0-3) Basophils (%) (Auto) 0 % (0-3) Neutrophils # (Auto) 8.7 x10^3/uL (1.8-7.7) Lymphocytes # (Auto) 0.4 x10^3/uL (1.0-4.8) Monocytes # (Auto) 0.5 x10^3/uL (0.0-1.1) Eosinophils # (Auto) 0.0 x10^3/uL (0.0-0.7) Basophils # (Auto) 0.0 x10^3/uL (0.0-0.2) Sodium Level 132 mmol/L (136-145) Potassium Level 5.3 mmol/L (3.5-5.1) Chloride Level 90 mmol/L (98-107) Carbon Dioxide Level 37 mmol/L (21-32) Anion Gap 5 (6-14) Blood Urea Nitrogen 28 mg/dL (7-20) Creatinine 0.6 mg/dL (0.6-1.0) Estimated GFR (Cockcroft-Gault) 104.6 Glucose Level 284 mg/dL (70-99) Calcium Level 9.1 mg/dL (8.5-10.1) Glucose (Fingerstick) 268 mg/dL (70-99) Medications Active Scripts Medications Dose Route/Sig Max Daily Dose Days Date Category Dose Instructions [Prednisone] 09/18/21 Reported [Undefined] Unknown Strength Unknown Dose 09/18/21 Reported Ibuprofen 800 Mg Tablet 800 Mg PO PRN Q6HRS PRN 09/18/21 Reported Prevacid (Lansoprazole) 30 Mg Tab.rap.dr 1 Tab PO DAILY 30 04/30/21 Rx Keppra (Levetiracetam) 1,000 Mg Tablet 1 Tab PO BID 30 04/30/21 Rx Carvedilol (Carvedilol) 12.5 Mg Tablet 6.25 Mg PO BIDWMEALS 30 04/30/21 Rx Plummer 5-325 Tablet (Acetaminophen/Hydrocodone Bitart) 1 Each Tablet 1-2 Each PO PRN Q6HRS PRN 01/04/19 Rx as needed for pain Symbicort 160-4.5 Mcg Inhaler (Budesonide/Formoterol Fumarate) 10.2 Gm Hfa.aer.ad 2 Puff IH BID 09/22/18 Rx Montelukast Sodium Tablet (Montelukast Sodium) 10 Mg Tablet 10 Mg PO QHS 30 06/15/17 Rx Albuterol Sulfate Neb Soln (Albuterol Sulfate) 2.5 Mg/3 Ml Vial.neb 2.5 Mg NEB PRN QID 30 06/15/17 Rx Fluoxetine Hcl 40 Mg Capsule 1 Cap PO DAILYWBKFT 06/11/17 Rx Zofran Odt (Ondansetron) 4 Mg Tab.rapdis 1 Tab SL Q8HRS 06/03/17 Rx Impression . 1. Acute on chronic hypoxic and hypercapnic respiratory failure secondary to multifactorial etiologies including acute exacerbation of chronic obstructive pulmonary disease, right lung pneumonia and prior history of COVID-19 viral pneumonia with some residual parenchymal abnormalities.. 2. Acute exacerbation of chronic obstructive pulmonary disease. 3. Suspected obstructive sleep apnea, overlapping with obesity hypoventilation syndrome. 4. Abnormal chest x-ray consistent with pneumonia. 5. Morbid obesity 6. Nonspecific anxiety disorder Plan . Updated 09/23 Discussed with our team, titrate FiO2 down to 2 to 3/L Continue as needed BiPAP nightly Doxycycline, Rocephin, IV Solu-Medrol Nebulized treatments Outpatient PFT Diuresis 1. Discussed with RN and the patient. I have explained to her the importance of using BiPAP every night.. We will continue present oxygen and gradually wean to keep saturation 92% and above. Avoid hyperoxia. I have encouraged the patient to use BiPAP at least 4 to 6 hours a night.. She agrees. We will obtain ABGs today. 2. Continue Rocephin and doxycycline. 3. Continue bronchodilators with Pulmicort and DuoNebs. 4. IV Solu-Medrol. 5. Physical therapy. 6. We will follow along with you. 7. She will benefit from outpatient sleep study. 8. Will obtain ABGs today to rule out any worsening hypercapnia. Discussed with Dr. Altman. VIRGILIO HAMMOND MD September 23, 2021 09:34
--- NOTE | 2021-09-23 10:17 | PDOC ---
[facility] PROGRESS NOTE Date of Service DOS: DATE: 09/23/21 TIME: 10:15 Chief Complaint Chief Complaint Respiratory failure Right lower lobe pneumonia Dry gangrene Asthma CHF Hyperlipidemia Hypertension Seizure disorder Tobacco abuse History of meth OCD Bipolar PTSD Anxiety Diabetes Headache History of Present Illness History of Present Illness 09/23/2021 Patient seen and examined Seems disheveled and weak Ate her breakfast On 3 L of oxygen per nasal cannula She states she lives at home with her mom and son I discussed with the nurse and case management The patient would like to go home Will await pulmonary further input Ms Pedersen is a 51yo female with PMHx Hypertension, hyperlipidemia, OCD, bipolar, PTSD, anxiety, chronic back pain, smoker, amphetamine use disorder, COPD on home O2, smoker, DM2 who comes to ED via EMS from home c/o worsening shortness of breath and 20 pound weight gain in the past 2 weeks. She was hypoxic to 70% on arrival, placed on 5L/min NCO2 with improvement in saturations to 90%, given duonebs. She c/o a "frog in my throat" and notes significant abdominal swelling for the past week. She has planned vascular surgery on 09/19/2021 for multiple to amputations for dry gangrene. She has orthopnea, FOX. She c/o anxiety as well in ED. She has been prescribed home O2 since a complicated stay 04/07/2022-04/30/2021 for COVID 19 requiring tracheostomy and PEG placement, both of which have since been reversed. CXR in ED with right lower lobe consolidation. NT-proBNP > 6000. Given lasix, antibiotics, O2 and admitted for further care. 09/18: Potassium 3.3 still hypoxic has good urine output after IV Lasix. Here she is complaining of bilateral foot pain days now is now better and a headache today. Productive cough and with some wheezing. PCO2 93 on ABG placed on BiPAP 09/19: Magnesium 1.5 replaced IV did not tolerate BiPAP well mostly due to anxiety she said it actually made her breathing more comfortable. This morning she is a little restless discussed with RT and nursing staff to lower her oxygen goal O2 saturations between 88 and 92% to avoid hypoxemia. Still continue antibiotics for right lower lobe pneumonia. Discussed with vascular surgery to delay surgery for now given her respiratory status. 09/20: Wore BiPAP for little bit overnight. She is having some anxiety right now. Discussed need for outpatient sleep study she is asking when she can get no more comfortable position and go home. Discussed with pulmonology. 09/21: Did not wear BiPAP last night little more anxious today. Asking if she can get a hold of her mom and she just says she is lonely. Wheezing is improved very little. Still coughing up mucus O2 saturations 91% on 2 L/min. Would like to maintain O2 saturations at this point. Given improvement in wheezing to restart her carvedilol and will add BuSpar and restart her fluoxetine now that she is more alert but anxious. 09/22: Little more drowsy today did not wear BiPAP all night last night but did wear it for a few hours. ABG pending. Glucose been in the 200s adjusted insulin accordingly. Labs for tomorrow morning. Anxiety was a little better with addition of BuSpar Vitals/I&O Vitals/I&O: Vital Signs Date Time Temp Pulse Resp B/P (MAP) Pulse Ox O2 Delivery O2 Flow Rate FiO2 09/23/21 08:23 97 141/93 09/23/21 08:00 Nasal Cannula 3.0 09/23/21 07:48 99 09/23/21 07:00 97.7 20 97.7 I & O 09/22/21 09/22/21 09/23/21 15:00 23:00 07:00 Intake Total 360 ml 180 ml 100 ml Output Total 200 ml 450 ml Balance 360 ml -20 ml -350 ml Physical Exam General: Alert, Oriented X3, Cooperative, No acute distress Heart: Regular rate Lungs: Other (Few anterior rhonchi.) Abdomen: Normal bowel sounds, Soft, Other (Fluid wave) Extremities: Other (She has dry gangrene to her right second, fourth, fifth toes at the tips, left third through fifth toes and both heels. There is no surrounding erythema to the heels, there is minimal erythema to the right toes evidence of demarcation. No drainage or wet gangrene. She has palpable DP Pulses bilaterally. Mild pedal edema. ) Skin: Other (Toe necrosis 11/02) Labs Labs: Laboratory Tests Test 09/22/21 10:25 09/22/21 11:07 09/22/21 16:54 09/22/21 20:25 O2 Saturation 88 % (92-99) Arterial Blood pH 7.34 (7.35-7.45) Arterial Blood pCO2 at Patient Temp 85 mmHg (35-46) Arterial Blood pO2 at Patient Temp 60 mmHg (75-108) Arterial Blood HCO3 45 mmol/L (21-28) Arterial Blood Base Excess 15 mmol/L (-3-3) FiO2 3 lpm nc Glucose (Fingerstick) 310 mg/dL (70-99) 399 mg/dL (70-99) 342 mg/dL (70-99) Test 09/23/21 05:05 09/23/21 07:43 White Blood Count 9.6 x10^3/uL (4.0-11.0) Red Blood Count 4.52 x10^6/uL (3.50-5.40) Hemoglobin 12.0 g/dL (12.0-15.5) Hematocrit 38.5 % (36.0-47.0) Mean Corpuscular Volume 85 fL (79-100) Mean Corpuscular Hemoglobin 27 pg (25-35) Mean Corpuscular Hemoglobin Concent 31 g/dL (31-37) Red Cell Distribution Width 18.4 % (11.5-14.5) Platelet Count 303 x10^3/uL (140-400) Neutrophils (%) (Auto) 90 % (31-73) Lymphocytes (%) (Auto) 4 % (24-48) Monocytes (%) (Auto) 5 % (0-9) Eosinophils (%) (Auto) 0 % (0-3) Basophils (%) (Auto) 0 % (0-3) Neutrophils # (Auto) 8.7 x10^3/uL (1.8-7.7) Lymphocytes # (Auto) 0.4 x10^3/uL (1.0-4.8) Monocytes # (Auto) 0.5 x10^3/uL (0.0-1.1) Eosinophils # (Auto) 0.0 x10^3/uL (0.0-0.7) Basophils # (Auto) 0.0 x10^3/uL (0.0-0.2) Sodium Level 132 mmol/L (136-145) Potassium Level 5.3 mmol/L (3.5-5.1) Chloride Level 90 mmol/L (98-107) Carbon Dioxide Level 37 mmol/L (21-32) Anion Gap 5 (6-14) Blood Urea Nitrogen 28 mg/dL (7-20) Creatinine 0.6 mg/dL (0.6-1.0) Estimated GFR (Cockcroft-Gault) 104.6 Glucose Level 284 mg/dL (70-99) Calcium Level 9.1 mg/dL (8.5-10.1) Glucose (Fingerstick) 268 mg/dL (70-99) Assessment and Plan Assessmemt and Plan Problems Medical Problems: (1) Abdominal pain Status: Acute (2) CHF (congestive heart failure) Status: Acute (3) Hypoxia Status: Acute (4) Pneumonia Status: Acute (5) Serum ammonia increased Status: Acute Slowly resolving respiratory failure Hope to discharge when okay with pulmonary For now continue the following; Will wean O2 as tolerated Right lower lobe pneumonia - with complicated pulmonary history likely gram negative, doxycycline and rocephin IV Dry gangrene - of 7 toes. Planned amputation on 09/19 per patient. Will inform vascular surgery of inpatient status for respiratory failure, likely delay surgery Asthma with COPD, acute bronchitis - will treat with steroids, aggressive nebulizers, consult pulmonology. 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 change to toprol from coreg, diurese with lasix High Cholesterol - statin Hypertension - cont BB Seizure history - was on keppra previously Smoker - still smokes, counseled on cessation H/o amphetamine abuse - states in remission OCD, bipolar, PTSD, anxiety - does not know her medications, will given prn genoveva zepam DM2 - sliding scale Headache FEN - ADA diet PPX - lovenox FULL CODE Dispo - inpatient Comment Review of Relevant I have reviewed the following items shiraz (where applicable) has been applied. Medications: Current Medications Medications (Trade) Dose Ordered Sig/Roberto Route PRN Reason Start Time Stop Time Status Last Admin Dose Admin Carvedilol (Coreg) 25 mg BIDWMEALS PO 09/22/21 17:00 09/23/21 08:23 Justifications for Admission Other Justification MARK MACIEL III DO September 23, 2021 10:17
[2021-09-23] MEDS ORDERED: INSU100V8 SQ (10:22)
[2021-09-23] MEDS ORDERED: NYST15PO2 TP (10:22)
[2021-09-23] MEDS ORDERED: AMOX1TAB61 PO (10:22)
[2021-09-23] MEDS ORDERED: DOXY100T PO (10:22)
[2021-09-23] MEDS ORDERED: INSU100V35 SQ (10:22)
[2021-09-23] MEDS ORDERED: BUSP10TA PO (10:22)
[2021-09-23] MEDS ORDERED: CARV12.511 PO (10:22)
[2021-09-23] MEDS ORDERED: METH4TAB2 PO (10:22)
--- NOTE | 2021-09-23 10:23 | SNU/HH DC ---
DISCHARGE WITH HOME HEALTH DISCHARGE INFORMATION: Final Diagnosis: Problems Medical Problems: (1) Abdominal pain Status: Acute (2) CHF (congestive heart failure) Status: Acute (3) Hypoxia Status: Acute (4) Pneumonia Status: Acute (5) Serum ammonia increased Status: Acute Condition on Discharge: Stable CODE STATUS: Code Status: Full HOME HEALTH: Face to Face: I certify this patient is under my care and that I, or a nurse practitioner or physician's optical assistant working with me, had a face to face encounter that meets the physician face to face encounter requirements with this patient on []. Medical Complications: COPD Group Home For: Assess Cardiopulm Status RN For Eval/Treatment: Yes Physical Therapy For: Evalulation/Treatment Occupational Therapy For: Evaluation/Treatment Home Health Aide For: Self-care SUPERCHARGER REPAIR SUPERVISOR For: Community Resources Pt Meets Homebound Status: Poor coordination w/ amb. POST DISCHARGE ORDERS: Activity Instructions for Disc: Activity as tolerated Weight Bearing Status after Di: No restrictions DIET AFTER DISCHARGE: Cardiac Wound/Incision Care: Other, see below CHECKS AFTER DISCHARGE: Checks after discharge: Check blood press - daily TREATMENT/EQUIPMENT ORDERS: Adaptive Equipment Issued: None Discharge Respiratory Equipmen: Oxygen CERTIFICATION STATEMENT: Certification Statement: Certification Statement: Based on the above finding, I certify that this patient is confined to the home and needs intermittent intermediate care, physical therapy and/or speech therapy, or continues to need occupational therapy.~ This patient is under my care, and I have initiated the establishment of the plan of care.~ This patient will be followed by myself or a community physician who will periodically review the plan of care. Home Meds Active Scripts Amoxicillin/Potassium Clav (AUGMENTIN 875-125 TABLET) 1 Each Tablet, 1 TAB PO BID for . for 10 Days, #20 TAB 0 Refills Prov:CASTLE,NIAL K III DO 09/23/21 Methylprednisolone (MEDROL) 4 Mg Tab.ds.pk, 1 PKG PO UD for ., #1 PKG Prov:CASTLE,NIAL K III DO 09/23/21 Nystatin (NYAMYC) 15 Gm Powder, 1 ANA TP BID for . for 30 Days, #1 MISC Prov:CASTLE,NIAL K III DO 09/23/21 Insulin Lispro (Admelog) 100 Unit/1 Ml Vial, 5 UNITS SQ TIDAC for . for 30 Days, #1 EACH Prov:CASTLE,NIAL K III DO 09/23/21 Insulin Glargine,Hum.rec.anlog (LANTUS) 100 Unit/1 Ml Vial, 18 UNIT SQ QHS for . for 30 Days, #1 EACH Prov:ARCHIE MACIELL K III DO 09/23/21 Buspirone Hcl (BUSPIRONE HCL) 10 Mg Tablet, 10 MG PO TID for . for 90 Days, #270 TAB Prov:ARCHIE MACIELL K III DO 09/23/21 Carvedilol (CARVEDILOL ) 12.5 Mg Tablet, 25 MG PO BIDWMEALS for . for 90 Days, #360 TAB Prov:ARCHIE MACIELL K III DO 09/23/21 Doxycycline Hyclate (DOXYCYCLINE HYCLATE) 100 Mg Tablet, 100 MG PO BID for . for 10 Days, #20 TAB Prov:ARCHIE MACIELL K III DO 09/23/21 Lansoprazole (PREVACID) 30 Mg Tab.rap., 1 TAB PO DAILY for GERD for 30 Days, #30 TAB 0 Refills Prov:HAM WELLS MD 04/30/21 Levetiracetam (KEPPRA) 1,000 Mg Tablet, 1 TAB PO BID for Sz for 30 Days, #60 TAB 0 Refills Prov:HAM WELLS MD 04/30/21 Hydrocodone/Apap 5-325 (NORCO 5-325 TABLET) 1 Each Tablet, 1-2 EACH PO PRN Q6HRS PRN for PAIN, #15 as needed for pain Prov:GEOVANI CHRISTIANSON Jr. DO 01/04/19 Budesonide/Formoterol Fumarate (SYMBICORT 160-4.5 MCG INHALER) 10.2 Gm Hfa.aer. ad, 2 PUFF IH BID for copd, #1 INHALER 5 Refills Prov:Jasmin PATTERSON MD 09/22/18 Montelukast Sodium (MONTELUKAST SODIUM TABLET ) 10 Mg Tablet, 10 MG PO QHS for 30 Days, #30 TAB 12 Refills Prov:Jasmin PATTERSON MD 06/15/17 Albuterol Sulfate (ALBUTEROL SULFATE NEB SOLN) 2.5 Mg/3 Ml Vial.neb, 2.5 MG NEB PRN QID for 30 Days, #120 EACH 5 Refills Prov:Jasmin PATTERSON MD 06/15/17 Fluoxetine Hcl (FLUOXETINE HCL) 40 Mg Capsule, 1 CAP PO DAILYWBKFT, #30 CAP 2 Refills Prov:MORRO BRADSHAW MD 06/11/17 Ondansetron (ZOFRAN ODT) 4 Mg Tab.rapdis, 1 TAB SL Q8HRS, #15 TAB Prov:DEZ WILLS APRN 06/03/17 Reported Medications [Prednisone] No Conflict Check 09/18/21 [Undefined] Unknown Strength No Conflict Check 09/18/21 Ibuprofen (IBUPROFEN) 800 Mg Tablet, 800 MG PO PRN Q6HRS PRN for INFLAMMATION, TAB 09/18/21 Discontinued Scripts Carvedilol (CARVEDILOL ) 12.5 Mg Tablet, 6.25 MG PO BIDWMEALS for BP, heart rate for 30 Days, #30 TAB 6 Refills Prov:HAM WELLS MD 04/30/21 MARK MACIEL III DO September 23, 2021 10:23
[2021-09-23 10:50] VITALS: BP 171/108
[2021-09-23 15:00] VITALS: BP 141/90
--- NOTE | 2021-09-23 15:36 | NUR ---
SS following up with discharge planning. SS reviewed pt chart and discussed with pt RN. Pt is currently requiring oxygen at three liters nasal canula. COVID19 negative. Pt has home oxygen. PT/OT recommended [facility]. Pt requesting to go home at discharge. SS will continue to follow for discharge planning.
[2021-09-23 19:55] VITALS: BP 135/92
[2021-09-23] MEDS: MONTELUKAST SODIUM 10 MG TABLET. PO SCH (20:37)
[2021-09-23] MEDS: INSULIN GLARGINE SYRINGE. SQ SCH (20:40)
[2021-09-23] MEDS ORDERED: DOXYCYCLINE HYCLATE 100 MG TABLET PO SCH (21:00)
[2021-09-24] MEDS ORDERED: predniSONE 20 MG TABLET PO SCH (09:00)
== END 2021-09-24 | disposition home or self-care (01) | DRG 193 ==
LOC: ER 17:43 → 6 SOUTH 19:25
PROVIDERS: ADMIT Internal Medicine; ATTEND Internal Medicine
PROC: 5A09357 Assistance with Respiratory Ventilation, Less than 24 Consecutive Hours, Continuous Positive Airway Pressure (ICD-10-PCS; principal; 2021-09-18)
PROC: 5A09357 Assistance with Respiratory Ventilation, Less than 24 Consecutive Hours, Continuous Positive Airway Pressure (ICD-10-PCS; 2021-09-19)
PROC: 5A09357 Assistance with Respiratory Ventilation, Less than 24 Consecutive Hours, Continuous Positive Airway Pressure (ICD-10-PCS; 2021-09-20)
PROC: 5A09357 Assistance with Respiratory Ventilation, Less than 24 Consecutive Hours, Continuous Positive Airway Pressure (ICD-10-PCS; 2021-09-21)
PROC: 5A09357 Assistance with Respiratory Ventilation, Less than 24 Consecutive Hours, Continuous Positive Airway Pressure (ICD-10-PCS; 2021-09-22)
PROC: 5A09357 Assistance with Respiratory Ventilation, Less than 24 Consecutive Hours, Continuous Positive Airway Pressure (ICD-10-PCS; 2021-09-23)
PROC: 5A09357 Assistance with Respiratory Ventilation, Less than 24 Consecutive Hours, Continuous Positive Airway Pressure (ICD-10-PCS; 2021-09-24)
PROC: 5A09357 Assistance with Respiratory Ventilation, Less than 24 Consecutive Hours, Continuous Positive Airway Pressure (ICD-10-PCS; 2021-09-24)
DX: J18.9 Pneumonia, unspecified organism (principal); I50.31 Acute diastolic (congestive) heart failure; J96.21 Acute and chronic respiratory failure with hypoxia; J96.22 Acute and chronic respiratory failure with hypercapnia; E11.52 Type 2 diabetes mellitus with diabetic peripheral angiopathy with gangrene; J44.1 Chronic obstructive pulmonary disease with (acute) exacerbation; J44.0 Chronic obstructive pulmonary disease with (acute) lower respiratory infection; Z20.822 Contact with and (suspected) exposure to COVID-19; E78.00 Pure hypercholesterolemia, unspecified; F43.10 Post-traumatic stress disorder, unspecified; I11.0 Hypertensive heart disease with heart failure; J20.9 Acute bronchitis, unspecified; F15.10 Other stimulant abuse, uncomplicated; F17.210 Nicotine dependence, cigarettes, uncomplicated; E66.01 Morbid (severe) obesity due to excess calories; E78.5 Hyperlipidemia, unspecified; G89.29 Other chronic pain; F42.9 Obsessive-compulsive disorder, unspecified; K21.9 Gastro-esophageal reflux disease without esophagitis; G40.909 Epilepsy, unspecified, not intractable, without status epilepticus; K59.00 Constipation, unspecified; F31.9 Bipolar disorder, unspecified; M54.9 Dorsalgia, unspecified; Z99.81 Dependence on supplemental oxygen; Z86.16 Personal history of COVID-19; Z86.74 Personal history of sudden cardiac arrest; Z88.1 Allergy status to other antibiotic agents; Z83.3 Family history of diabetes mellitus; Z82.49 Family history of ischemic heart disease and other diseases of the circulatory system; Z82.5 Family history of asthma and other chronic lower respiratory diseases; Z68.36 Body mass index [BMI] 36.0-36.9, adult; Z87.01 Personal history of pneumonia (recurrent); Z79.899 Other long term (current) drug therapy
CPT/HCPCS: 36415; 36600; 71045; 80048; 80053; 82140; 82805; 82962; 83605; 83735; 83880; 84484; 85007; 85025; 85610; 85730; 87040; 87428; 93005; 94640; 94660; 94760; 96365; 96375; 99406; J0360; J0696; J1650; J1815; J1940; J2060; J2920; J3010; J3475; J3490; J7060; 97530-GP; 97535-GO; 99285-25; G0378; J7626